=== PATIENT | male | born 1950 | race Caucasian/White ===

== ENCOUNTER → 2017-04-08 08:09 | Outpatient (CLI) | payer MEDICARE ==
[2015-12-15 10:44] VITALS: BMI 32.5
[~2017-04-08 08:09] MED LIST: BETAPACE 80 MG80 MG PO; COREG12.5 MG PO; GLUCOPHAGE1000 MG PO; GLUCOTROL 5 MG T5 MG PO; ISOSORBIDE MONO60 M1 PO; LISINOPRIL10 MG PO; NEURONTIN 400400 MG PO; PLAVIX75 MG PO; PRAVACHOL40 MG PO; PROAIR HFA8.5 GM INH; SPIRIVA18 MCG INH; TRICOR145 MG PO
== END | disposition home or self-care (01) ==
LOC: D.RT 08:09
DX: J45.909 Unspecified asthma, uncomplicated (principal)

== ENCOUNTER 2017-06-23 10:17 | Outpatient (CLI) | payer MEDICARE ==
[~2017-06-23] VITALS: Ht 172.7 cm; Wt 99.5 kg
--- NOTE | ~2017-06-23 | HEMODYNAMI ---
PATIENT:LETICIA LAMB MEDICAL RECORD: [id number] : 54 LOCATION:DBENEDICT ADMISSION DATE: 06/23/17 Generatedon:06/23/201712:46 Patient name: LETICIA LAMB Patient #: [id number] : 1950 Date of study: 06/23/2017 Page: Of Hemodynamic Procedure Report Patient Data Patient Demographics Procedure consent was obtained First Name: LETICIA Gender: Male Last Name: ZAINAB : 1950 Middle Initial: SRAVANTHI Age: 66 year(s) Patient #: [id number] Race: SSN: [id number] Additional ID: [id number] Contact details Address: [address] [place] [address] State: [place] City: [place] Zip code: [address] Past Medical History Allergies: No known allergies Admission Admission Data Admission Date: 06/23/2017 Admission Time: 10:17 Lab Results Lab Result Date: 06/23/2017 Lab Result Time: 0:00 Biochemistry Name Units Result Min Max BUN mg/dl 15 --(--*-)-- 7 18 Creatinine mg/dl 1.1 --(--*-)-- 0.6 1.3 CBC Name Units Result Min Max Hemoglobin g/dl 13.8 --(*---)-- 13.5 17.5 Procedure Procedure Types Cath Procedure Diagnostic Procedure LHC [facility] w/Coronaries w/Grafts Sedation Charges Moderate Sedation up to 15 minutes PCI Procedure AMI/SVG/DOMESTIC MAID PTCA or Stent SVG-BMS/IRON Initial Procedure Description Procedure Date Procedure Date: 06/23/2017 Procedure Start Time: 12:21 Procedure End Time: 12:45 Procedure Staff Name Function Phill Gresham MD Performing Physician Jie Rodrigez RT Monitor Allyson Ellis RN Nurse Theresa Barger RT Scrub Procedure Data Cath Procedure Fluoroscopy Diagnostic fluoroscopy Total fluoroscopy Time: 6.9 time: 6.9 min min Diagnostic fluoroscopy Total fluoroscopy dose: dose: 1209 mGy 1209 mGy Contrast Material Contrast Material Type Amount (ml) Isovue 300 94 Entry Location Entry Primary Successful Side Size Upsize Upsize Entry Closure Succes sful Closure Location (Fr) 1 (Fr) 2 (Fr) Remarks Device Remarks Femoral Right 5 Fr 6 Fr Exoseal artery Short Estimated blood loss: 10 ml Diagnostic catheters Device Type Used For End Catheter Placement MULTIPACK Pigtail 5 Fr Procedure catheter DIAGNOSTIC JL 5 5Fr Procedure catheter ([id number]) MULTIPACK 3DRC 5Fr catheter Procedure Complications No complications Procedure Medications Medication Administration Route Dosage Oxygen NC 2 l/min Lidocaine 2% added to field 20 Heparin Flush Bag added to field 2 bags (1000units/500ml NS) 0.9% NaCl I.V. 100 ml/hr Versed I.V. 1 mg Fentanyl I.V. 50 mcg Versed I.V. 1 mg Fentanyl I.V. 50 mcg Heparin Bolus 4000 units Hemodynamics Rest HGB: 13.8 (g/dl) Heart Rate: 0 (bpm) Snapshots Pre Cath Intra NCS Post Cath Vital Signs Time Heart Resp SPO2 etCO2 NIBP (mmHg) Rhythm Pain Sedation Rate (ipm) (%) (mmHg) Status Level (bpm) 12:00:18 65 18 98 0 120/76(96) NSR 0 (11) 10(A) , No pain 12:04:28 64 17 99 23.1 116/70(94) NSR 0 (11) 10(A) , No pain 12:08:36 63 21 100 36.6 114/72(98) NSR 0 (11) 10(A) , No pain 12:12:42 67 16 96 29.1 111/75(88) NSR 0 (11) 10(A) , No pain 12:16:46 67 15 95 26.9 114/74(91) NSR 0 (11) 10(A) , No pain 12:20:53 70 15 96 20.9 126/68(104) NSR 0 (11) 9(A) , No pain 12:25:01 69 13 97 11.2 112/78(95) NSR 0 (11) 9(A) , No pain 12:29:07 71 15 97 15.6 106/70(93) NSR 0 (11) 9(A) , No pain 12:33:09 72 15 98 11.9 115/77(99) NSR 0 (11) 9(A) , No pain 12:37:16 71 13 97 32.8 110/67(84) NSR 0 (11) 9(A) , No pain 12:41:20 70 16 98 42.5 116/73(99) NSR 0 (11) 10(A) , No pain 12:45:26 71 13 99 36.5 115/75(88) NSR 0 (11) 10(A) , No pain Medications Time Medication Route Dose Verified Delivered Reason Notes Ef fectiveness by by 12:03:52 Oxygen NC 2 Phill Buffie used for l/min Marga Ellis RN procedure 12:03:59 Lidocaine 2% added 20ml Phill Phill for local to vial Marga Gresham MD anesthetic field 12:04:04 Heparin Flush added 2 Phill Phill used for Bag to bags Marga Gresham MD procedure (1000units/500ml field NS) 12:04:12 0.9% NaCl I.V. 100 Phill Estrellaie Per ml/hr Marga Ellis RN physician 12:14:13 Versed I.V. 1 mg Phill Valadez for Marga Ellis RN sedation 12:14:18 Fentanyl I.V. 50 Phill Buffie for mcg Marga Ellis RN sedation 12:21:53 Versed I.V. 1 mg Phill Buffie for Marga Ellis RN sedation 12:21:56 Fentanyl I.V. 50 Phill Estrellaie for mcg Marga Ellis RN sedation 12:35:15 Heparin Bolus 4000 Phill Deloresie verified units Marga Ellis RN with dr gresham Procedure Log Time Note 11:40:28 Diagnostic Cath Status : Elective 11:40:50 Jie Rodrigez RT(R) sent for patient. Start room use. 11:40:51 Time tracking: Regular hours 11:40:56 Plan of Care:Hemodynamics will remain stable., Cardiac rhythm will remain stable., Comfort level will be maintained., Respiratory function will remain adequate., Patient/ family verbilizes understanding of procedure., Procedure tolerated without complication., Recovers from procedure without complications.. 11:53:55 Patient received from Pre/Post Procedure Room to [facility] 2 Alert and oriented. Tansferred to table in Supine position. 11:53:57 Warm blankets applied, and marlee hugger turned on for patient comfort. 11:53:57 Correct patient and procedure confirmed by team. 11:53:58 Signed procedure consent form obtained from patient. 11:53:59 ECG and BP/O2 sat monitors applied to patient. 11:59:18 Vital chart was started 11:59:19 Baseline sample Acquired. 11:59:26 Rhythm: sinus rhythm 11:59:58 Full Disclosure recording started 12:00:03 H&P Date Dictated: 06/23/2017 Within 30 days and on chart., H&P Addendum completed by physician on day of procedure. (MUST COMPLETE FOR ALL OUTPATIENTS). 12:00:05 Pre-procedure instructions explained to patient. 12:00:05 Pre-op teaching completed and patient verbalized understanding. 12:00:08 Family in waiting room. 12:00:11 Patient NPO since Midnight. 12:00:15 Is the patient allergic to Iodine/contrast media? No. 12:00:17 Was the patient premedicated? No 12:03:52 Oxygen 2 l/min NC was administered by Allyson Ellis RN; used for procedure; 12:03:59 Lidocaine 2% 20ml vial added to field was administered by Phill Gresham MD; for local anesthetic; 12:04:04 Heparin Flush Bag (1000units/500ml NS) 2 bags added to field was administered by Phill Gresham MD; used for procedure; 12:04:12 0.9% NaCl 100 ml/hr I.V. was administered by Allyson Ellis RN; Per physician; 12:04:15 Is patient on blood thinner?Yes 12:04:26 Snore? Yes 12:04:46 If diabetic: On Metformin? Yes 12:04:51 If on Metformin: Last Dose? 06/21/2017 12:04:53 If diabetic: On Metformin? Yes 12:05:01 Sleep apnea? No 12:05:05 Airway obstruction? Yes COPD 12:05:14 Dentures? No ? 12:05:23 Patient pain scale 0/10 .. 12:05:29 IV patent on arrival in left forearm with 0.9% NaCl at O. 12:05:56 Lab results completed and on chart. 12:06:02 Right groin area was prepped with chlora-prep and draped in sterile fashion 12:06:04 Alarms reviewed by R. N. 12:06:04 Sharps counted by scrub and verified by R.N. 12:06:06 Physician paged 12:12:05 Lab results completed and on chart. 12:13: Lab Result : Hemoglobin 13.8 g/dl 12:: Lab Result : Creatinine 1.1 mg/dl 12:: Lab Result : BUN 15 mg/dl 12:13: Physician arrived 12:: --------ALL STOP TIME OUT------ 12:: Final Timeout: patient, procedure, and site verified with staff and physician. All members of the team are in agreement. 12:13:31 Right groin site verified by team. 12:13:36 Physical assessment completed. ASA score P 2 - A patient with mild systemic disease as per Phill Gresham MD. 12:13:41 Sedation plan: IV Moderate Sedation Medication:Versed, Fentanyl 12:13:51 Baseline sample Acquired. 12:14:09 Use device set Femoral Dx 12:14:11 ACIST Syringe (71998) opened to sterile field. 12:14:11 Bag Decanter (2002S) opened to sterile field. 12:14:12 Medline Cath Pack ([id number]) opened to sterile field. 12:14:12 SHEATH 5FR Wharton (ANG868) opened to sterile field. 12:14:13 Versed 1 mg I.V. was administered by Allyson Ellis RN; for sedation; 12:14:13 DIAGNOSTIC WIRE .035 260cm J wire (508942) opened to sterile field. 12:14:14 ACIST Hand Control (67615) opened to sterile field. 12:14:15 ACIST Manifold (46808) opened to sterile field. 12:14:16 DIAGNOSTIC Multipack 5Fr catheter set (TM4170) opened to sterile field. 12:14:16 Tegaderm 4 x 4 (1626W) opened to sterile field. 12:14:18 Fentanyl 50 mcg I.V. was administered by Allyson Ellis RN; for sedation; 12:21:17 PERCUTANEOUS ENTRY 19GA needle opened to sterile field. 12:21:21 Procedure started. 12:21:34 Local anesthetic to right femoral artery with Lidocaine 2% by Phill Gresham MD.INITIAL ACCESS ONLY 12::53 Versed 1 mg I.V. was administered by Allyson Ellis RN; for sedation; 12::56 Fentanyl 50 mcg I.V. was administered by Allyson Ellis RN; for sedation; 12:: A 5 Fr sheath was inserted into the Right Femoral artery 12:23:51 A MULTIPACK Pigtail 5 Fr catheter was advanced over the wire and used for Procedure. 12::58 EF : 30 % 12:24:04 Catheter removed. 12::23 A DIAGNOSTIC JL 5 5Fr catheter ([id number]) was advanced over the wire and used for Procedure. 12:24:24 LCA angiography performed. 12::26 Catheter removed. 12:25:30 A MULTIPACK 3DRC 5Fr catheter was advanced over the wire and used for . 12:25:34 LEE to LAD angiography performed. 12:25:50 LEE not functioning 12:26:15 GUIDE 5FR AR 2.0 catheter ([id number]) opened to sterile field. 12:26:32 SVG angiography performed. 12:27:12 SVG to OM angiography performed. 12:27:31 SVG to LAD angiography performed. 12:27:44 RCA angiography performed. 12::57 Catheter removed. 12:28:55 INFLATOR Merit BasixCompak (PL9537) opened to sterile field. 12:28:56 CHOICE PT Extra Support 182cm wire ([id number]) opened to sterile field. 12:29:01 SHEATH 6FR Wharton (JAZ901) opened to sterile field. 12:29:18 Sheath upsized to a 6 Fr Short. 12:29:58 [place] IVUS Catheter (82082U) opened to sterile field. 12:30:01 GUIDE 6FR AR 2.0 catheter ([id number]) opened to sterile field. 12:30:12 6 Fr AR2 guide catheter was inserted over the wire 12:30:20 Choice PT ex wire advanced. 12:30:22 Wire advanced across lesion. 12:30:26 IVUS catheter advanced over wire. 12:34:40 IVUS catheter removed over wire. 12:35:15 Heparin Bolus 4000 units was administered by Allyson Ellis RN; ; verified with dr gresham 12:36:11 Wire removed. 12:36:13 Guide catheter removed. 12:37:02 GUIDE 6FR ART 4.0 catheter ([id number]) opened to sterile field. 12:37:27 Study PCI Site: Vein Graft mCirc has 74% stenosis. 12:37:38 Choice pt ex wire advanced. 12:37:40 Wire advanced across lesion. 12:41:30 Place stent Inflation Number: 1 A TRISTAN RX 4.0 x 18 stent ([id number]) was prepped and advanced across the Undefined2. The stent was deployed at 21 ROGER for 0:10 (min:sec). 12:41:52 Wire removed. 12:41:52 Guide catheter removed. 12:42:18 Sheath removed intact; hemostasis achieved with Exoseal to the Right Femoral artery. 12:42:26 Procedure ended.(Physican Out) 12:42:40 Fluoroscopy time 06.90 minutes. 12:42:47 Flurop Dose total: 1209 12:42:47 Fluoroscopy dose: 1209 mGy 12:42:59 Contrast amount:Isovue 300 94ml. 12:43:00 Sharps counted by scrub and verified by R.N. 12:43:01 Insertion/operative site no bleeding no hematoma. 12:43:06 Post right femoral artery:stable 12:43:12 Post-procedure physical assessment completed. ASA score P 2 - A patient with mild systemic disease as per Phill Gresham MD. 12:43:19 Post procedure rhythm: unchanged. 12:43:24 Estimated blood loss: 10 ml 12:43:26 Post procedure instruction explained to patient.Patient verbalizes understanding. 12:44:24 Procedure type changed to Cath procedure, Diagnostic procedure, LHC, LHC w/Coronaries w/Grafts, Sedation Charges, Moderate Sedation up to 15 minutes, PCI procedure, AMI/SVG/DOMESTIC MAID PTCA or Stent, SVG-BMS/IRON Initial 12:44:27 Procedure and supply charges have been captured, reviewed, submitted and are correct. 12:45:33 Procedure Complication : No complications 12:45:35 Vital chart was stopped 12:45:36 See physician's report for complete and final results. 12:45:37 Report given to Pre/Post Procedure Room. 12:45:41 Patient transfered to Pre/Post Procedure Room with Stretcher. 12:45:44 Procedure ended. 12:45:44 Full Disclosure recording stopped 12:46:06 End room use (Document Last) Intervention Summary Intervention Notes Time ActionType Lesion and Equipment Used Action# Pressure Duration Attributes 12:41:30 Place stent Undefined2 TRISTAN RX 4.0 x 1 21 00:10 18 stent ([id number]) Device Usage Item Name Manufacture Quantity Catalog Number Hospital Part Current M inimal Lot# / Charge Number Stock Stock Serial# Code ACIST Syringe Acist 1 25443 799595 886480 543151 2 0 (78016) Medical Systems Inc Bag Decanter Microtek 1 733580 50904 410012 5 () Medical Inc. Medline Cath Cardinal 1 [id number] 296759 20406 173759 5 Pack Health ([id number]) SHEATH 5FR Terumo 1 XTJ102 643802 994088 995789 4 0 Wharton (KZI554) DIAGNOSTIC St Yazan 1 985071 257688 747933 983213 3 0 WIRE .035 260cm J wire (408002) ACIST Hand Acist 1 08456 665195 528386 885970 5 Control Medical (45404) Systems Inc ACIST Manifold Acist 1 15890 099213 268584 314343 5 (25956) Medical Systems Inc DIAGNOSTIC Cardinal 1 HG8766 945936 81921 195380 3 0 Multipack 5Fr Health catheter set (PN8277) Tegaderm 4 x 4 3M 1 1626W 680364 330215 404614 5 (1626W) PERCUTANEOUS Cook Medical 1 J42542 669660 440949 5 ENTRY 19GA needle MULTIPACK Cardinal 1 051733 5 Pigtail 5 Fr Health catheter DIAGNOSTIC JL Cardinal 1 [id number] 792015 137620 173890 5 5 5Fr catheter Health ([id number]) MULTIPACK 3DRC Cardinal 1 771558 5 5Fr catheter Health GUIDE 5FR AR Medtronic 1 [id number] 636982 777332 745361 1 2.0 catheter (IC6DS71) INFLATOR Merit Merit 1 LF6631 296064 828874 875756 1 5 PharmaIN (MU8719) CHOICE PT [place] 1 [id number] 138800 147937 179586 5 Extra Support Scientific 182cm wire ([id number]) SHEATH 6FR Terumo 1 XTO209 494505 183046 634780 4 0 Wharton (NGN501) [place] 1 71628P 786981 477667 883951 8 [place] IVUS Catheter (27133X) GUIDE 6FR AR Medtronic 1 [id number] 662759 60577 884451 1 2.0 catheter (MN9NC46) GUIDE 6FR ART [place] 1 [id number] 767694 940534 058882 0 4.0 catheter Scientific ([id number]) TRISTAN RX 4.0 x Medtronic 1 [id number] 311922 7296621 078696 5 [id number] 18 stent ([id number]) Signature Audit [place] Stage Time Signature Unsigned Intra-Procedure 06/23/2017 Jie Rodrigez 12:46:39 PM RT(R) Signatures Monitor : Jie Rodrigez Signature : RT Date : Time : [address] [place] [address]
--- NOTE | ~2017-06-23 | OP ---
PATIENT NAME: LETICIA LAMB MEDICAL RECORD: [id number] :54 LOCATION:D.CAT ADMISSION DATE: SURGEON: MICHAEL FONSECA MD DATE OF OPERATION: 06/23/2017 PROCEDURES: 1. PTCA stent vein graft to left circumflex. 2. Left heart catheterization. 3. Selective coronary angiography. 4. Left ventriculogram. 5. Vein graft angiography. 6. Intravascular ultrasound. INDICATION: Angina and coronary artery disease. PROCEDURE IN DETAIL: After informed consent was obtained and after a detailed description of the risks, benefits as well as alternative therapies, the patient elected to proceed with angiogram and angioplasty. The right femoral area was prepped and draped in normal sterile fashion. Right femoral artery was cannulated via modified Seldinger technique with placement of 6-[place] sheath. All catheters exchanged through this sheath. FINDINGS: The left ventriculogram was performed in standard 30-degree BURR view reveals global hypokinesis throughout all segments. Overall ejection fraction 35%. SELECTIVE CORONARY ANGIOGRAPHY: 1. Left main is with no significant angiographic disease. 2. Left anterior descending is totally occluded in the proximal vessel. 3. Left circumflex is totally occluded proximally. 4. Right coronary artery is totally occluded proximally. 5. Vein graft to the LAD is widely patent. Distal LAD is widely patent. 6. Vein graft to the circumflex is patent; however, intravascular ultrasound reveals there is 74% stenosis in the proximal shaft. PTCA STENT OF THE VEIN GRAFT TO THE CIRCUMFLEX: The stent used was a 4.0 x 18 mm Og. Result was 0% residual stenosis. OVERALL IMPRESSION: Successful percutaneous transluminal coronary angioplasty stent of the vein graft circumflex going from 74% initial stenosis confirmed by intravascular ultrasound to 0% residual stenosis. TRANSINT:[id number] Voice Confirmation ID: [id number] DOCUMENT ID: [id number] MICHAEL FONSECA MD at 1057 CC: [id number] DICTATION DATE: 06/23/17 1246 ELECTROPHONIC ENGINEER: 06/23/17 1259 DEP CLI 06/23/17 [place] [id number]
[2017-06-23] MEDS ORDERED: SINGULAIR10 MG PO (10:30)
[2017-06-23] MEDS ORDERED: NITROSTAT0.4 MG SL (10:31)
[2017-06-23] MEDS ORDERED: BREO ELLIPTA 21 EACH (10:31)
[2017-06-23] MEDS ORDERED: RANEXA500 MG PO (10:31)
[2017-06-23 10:45] VITALS: BP 116/68; Ht 172.7 cm; Wt 99.5 kg
[2017-06-23 11:08] LABS: BASOPHILS 0.3 % (0-2); EOSINOPHILS 1.7 % (0-7); HEMATOCRIT 40.5 % (42.0-54.0); HEMOGLOBIN 13.8 g/dL (13.5-17.5); IMMATURE GRANULOCYTES 0.3 % (0-5); LYMPHOCYTES 25.4 % (15-50); MCH 32.1 pg (26.0-34.0); MCHC 34.1 g/dL (31.0-37.0); MCV 94.2 fL (80.0-100.0); MEAN PLATELET VOLUME 11.7 fL (7.4-10.4); MONOCYTES 8.9 % (2-11); NEUTROPHILS 63.4 % (40-80); PLATELET COUNT 195 10x3/uL (130-400); RDW 14.3 % (11.5-14.5); WBC 7.4 10x3/uL (4.8-10.8)
[2017-06-23 11:23] LABS: ANION GAP 14.5 mmol/L (8-16); CALCIUM 9.3 mg/dL (8.5-10.1); CARBON DIOXIDE 25.3 mmol/L (21.0-32.0); CREATININE - SERUM 1.1 mg/dL (0.6-1.3); POTASSIUM - SERUM 4.8 mmol/L (3.5-5.1)
[2017-06-23] MEDS ORDERED: BAYER CHEWABLE81 MG PO (12:54)
== END 2017-06-23 17:00 | disposition home or self-care (01) ==
LOC: D.CATH 10:17
PROVIDERS: Internal Medicine Interventional Cardiology
DX: I25.119 Atherosclerotic heart disease of native coronary artery with unspecified angina pectoris (principal); I25.719 Atherosclerosis of autologous vein coronary artery bypass graft(s) with unspecified angina pectoris; Z01.812 Encounter for preprocedural laboratory examination
CPT/HCPCS: 92978; 93459; C9604

== ENCOUNTER 2018-01-06 01:33 | Outpatient (CLI) | payer MEDICARE ==
[~2018-01-06] VITALS: Ht 172.7 cm; Wt 99.8 kg
--- NOTE | ~2018-01-06 | DS ---
PATIENT:LETICIA LAMB :54 MEDICAL RECORD: [id number] DISCHARGE SUMMARY ADMISSION DATE: 01/06/18 DISCHARGE DATE: 01/07/18 DATE OF ADMISSION: 01/06/2018 DATE OF DISCHARGE: 01/07/2018 ADMISSION DIAGNOSES: Chest pain with known cardiovascular disease, chronic obstructive pulmonary disease, diabetes. DISCHARGE DIAGNOSES: Chest pain, cardiovascular disease, chronic obstructive pulmonary disease, diabetes. CONSULTS: Dr. Gresham, cardiology. PROCEDURES: Cardiac catheterization with a stent to the vein graft and circumflex with complete resolution of symptoms. HOSPITAL COURSE: The patient was admitted to the Emergency Room with chest pain, with known cardiovascular disease. Cardiology consulted, underwent successful cardiac catheterization with stent placement as above. The patient's symptoms have completely resolved. He is discharged to home in significantly improved condition. PHYSICAL EXAMINATION: VITAL SIGNS ON DISCHARGE: Temperature 97.7, blood pressure is 114/72, heart rate 66, respirations 17, O2 sats 98% on room air. HEART: Regular rate and rhythm. LUNGS: Clear. ABDOMEN: Soft, nontender. Bowel sounds in all 4 quadrants. EXTREMITIES: Present times 4. NEUROLOGIC: Intact. SKIN: Warm and dry. No rash. DISCHARGE MEDICATIONS: Per med rec. FOLLOWUP: The patient will follow up with cardiology as scheduled. Follow up with me in the clinic in 10 days. See chart for further details. TRANSINT:[id number] Voice Confirmation ID: [id number] DOCUMENT ID: [id number] HELEN BAUER DO at 1304 CC: [id number] DICTATION DATE: 01/07/18 111 SPORTS ANALYST: 01/07/182047 DIS IN 01/07/18 [facility] [address] [id number]
--- NOTE | ~2018-01-06 | MORECARE ---
CASE MANAGEMENT DISCHARGE SUMMARY PATIENT: LETICIA LAMB UNIT: [id number] ADM DATE: 01/06/18 AGE: 67 : 54 SEX: M ROOM/BED: D.8253 AUTHOR: ALEJANDRO SANCHEZ PHYSICIAN: REFERRING PHYSICIAN: HELEN BAUER DO DATE OF SERVICE: 01/09/18 Discharge Plan Patient Name: LETICIA LAMB [facility] [facility] 1950 Planned Disposition: Home Anticipated Discharge Date: 01/07/18 Discharge Date: 01/07/2018 Expected LOS: 1 Initial Reviewer: [email or web address] Initial Review Date: 01/09/2018 Generated: 01/09/18 10:08 am Patient Name: LETICIA LAMB Page [id number] at 0908 All edits/amendments must be made on the electronic document DICTATION DATE: 01/09/18907 SENIOR HR BUSINESS PARTNER: BOB 01/09/18907 RPT#: [id number] DC DATE:01/07/18 STATUS: DIS IN [facility] [address] [facility] [place] [address] END OF REPORT
--- NOTE | ~2018-01-06 | OP ---
PATIENT NAME: LETICIA LAMB MEDICAL RECORD: [id number] :54 LOCATION:D.M2 D.2123 ADMISSION DATE:01/06/18 SURGEON: MICHAEL FONSECA MD DATE OF OPERATION: 01/06/2018 PROCEDURES: 1. PTCA stent vein graft to left circumflex. 2. Left heart catheterization. 3. Selective coronary angiography. 4. Left ventriculogram. 5. Vein graft angiography. INDICATION: Unstable angina and coronary artery disease. PROCEDURE IN DETAIL: After informed consent was obtained and after a detailed description of risks, benefits as well as alternative therapies, the patient proceed with angiogram and angioplasty. The right femoral area was prepped and draped in normal sterile fashion. The right femoral artery was cannulated via modified Seldinger technique with placement of 6-[place] sheath. All catheters exchanged through this sheath. FINDINGS: Left ventriculogram was performed in standard 30-degree BURR view, reveals global hypokinesis throughout all segments. Overall ejection fraction approximately 35%. SELECTIVE CORONARY ANGIOGRAPHY: 1. Left main is with no significant angiographic disease. 2. Left anterior descending is closed. 3. Left circumflex is closed. 4. Right coronary artery is closed. 5. Vein graft to the LAD is widely patent. Distal LAD is widely patent. 6. Vein graft to circumflex is patent, previously placed stents are patent; however, there is a new 75% stenosis in the mid shaft. 7. Right coronary is not grafted. PTCA STENT OF THE VEIN GRAFT AND CIRCUMFLEX: The stent used 4.5 x 18 mm Og. Result was 0% residual stenosis. OVERALL IMPRESSION: Successful PTCA stent of the vein graft to the left circumflex going from 75% initial stenosis to 0% residual. TRANSINT:[id number] Voice Confirmation ID: [id number] DOCUMENT ID: [id number] MICHAEL FONSECA MD at 1914 CC: [id number] DICTATION DATE: 01/06/18 1632 SENIOR LINUX UNIX ENGINEER: 01/06/18 1641 ADM IN [facility] [address] [place] [address]
--- NOTE | ~2018-01-06 | HEMODYNAMI ---
PATIENT:LETICIA LAMB MEDICAL RECORD: [id number] : 54 LOCATION:[place] [address] ADMISSION DATE: 01/06/18 Generatedon:01/06/201816:30 Patient name: LETICIA LAMB Patient #: [id number] : 1950 Date of study: 01/06/2018 Page: Of Hemodynamic Procedure Report Patient Data Patient Demographics Procedure consent was obtained First Name: LETICIA Gender: Male Last Name: ZAINAB : 1950 [facility] Initial: SRAVANTHI Age: 67 year(s) Patient #: [id number] Race: SSN: [id number] Additional ID: [id number] Contact details Address: [place] [address] State: [place] City: [place] Zip code: [address] Past Medical History Allergies: No known allergies Admission Admission Data Admission Date: 01/06/2018 Admission Time: 3:25 Room #: [facility] Procedure Procedure Types Cath Procedure Diagnostic Procedure LHC LHC w/Coronaries w/Grafts Sedation Charges Moderate Sedation up to 15 minutes PCI Procedure AMI/SVG/OPTICAL GOODS DRILL OPERATOR PTCA or Stent SVG-BMS/IRON Initial Procedure Description Procedure Date Procedure Date: 01/06/2018 Procedure Start Time: 16:15 Procedure End Time: 16:27 Procedure Staff Name Function Phill Gresham MD Performing Physician Theresa Barger RT Monitor Jie Rodrigez RT Scrub Joey Lewis RN Nurse Procedure Data Cath Procedure Fluoroscopy Diagnostic fluoroscopy Total fluoroscopy Time: 3.4 time: 3.4 min min Diagnostic fluoroscopy Total fluoroscopy dose: 820 dose: 820 mGy mGy Contrast Material Contrast Material Type Amount (ml) Isovue 300 83 Entry Location Entry Primary Successful Side Size Upsize Upsize Entry Closure Succes sful Closure Location (Fr) 1 (Fr) 2 (Fr) Remarks Device Remarks Femoral Right 5 Fr 6 Fr Exoseal artery Short Estimated blood loss: 5 ml Diagnostic catheters Device Type Used For End Catheter Placement Medtronic Dexterity 5Fr Multi-vessel Pigtail catheter(NO COST Angiography SUPPLY) Medtronic Dexterity 5Fr Left Coronary JL 4.0 catheter (NO COST Angiography SUPPLY) Medtronic Dexterity 5Fr Right Coronary 3DRC catheter (NO COST Angiography SUPPLY) Procedure Complications No complications Procedure Medications Medication Administration Route Dosage Oxygen etCO2 Nasal cannula 2 l/min Heparin Flush Bag added to field 2 bags (1000units/500ml NS) 0.9% NaCl I.V. 100 ml/hr Fentanyl I.V. 50 mcg Versed I.V. 1 mg Fentanyl I.V. 50 mcg Versed I.V. 1 mg Heparin Bolus I.V. 4000 units Hemodynamics Rest Heart Rate: 73 (bpm) Pressure Samples Time Site Value (mmHg) Purpose Heart Use Rate(bpm) 16:16 LV 91/6,7 Snapshot 76 Snapshots Pre Cath Intra NCS Post Cath Vital Signs Time Heart Resp SPO2 etCO2 NIBP (mmHg) Rhythm Pain Sedation Rate (ipm) (%) (mmHg) Status Level (bpm) 16:03:41 72 17 98 17.9 123/76(100) NSR 0 (11) 10(A) , No pain 16:07:44 72 16 99 25.3 128/82(105) NSR 0 (11) 10(A) , No pain 16:11:50 76 17 95 39.5 128/79(107) NSR 0 (11) 10(A) , No pain 16:15:58 75 17 95 33.6 123/76(108) NSR 0 (11) 9(A) , No pain 16:20:02 81 17 95 41.8 128/80(112) NSR 0 (11) 9(A) , No pain 16:24:09 83 16 95 46.2 125/79(107) NSR 0 (11) 9(A) , No pain 16:28:13 83 16 97 40.3 136/83(108) NSR 0 (11) 9(A) , No pain Medications Time Medication Route Dose Verified Delivered Reason Notes Effectiveness by by 16:04:07 Oxygen etCO2 2 Phill Cook Per physician Nasal l/min Marga Lewis RN cannula 16:04:14 Heparin Flush added 2 Phill Cook used for Bag to bags Marga Lewis tuberculosis specialist (1000units/500ml field NS) 16:04:22 0.9% NaCl I.V. 100 Phill Andinoy Per physician ml/hr Marga Lewis RN 16:13:57 Fentanyl I.V. 50 Phill Cook for sedation mcg Marga Lewis RN 16:14:03 Versed I.V. 1 mg Phill Cook for sedation Marga Lewis RN 16:22:20 Fentanyl I.V. 50 Phill Cook for sedation mcg Marga Lewis RN 16:22:25 Versed I.V. 1 mg Phill Cook for sedation Marga Lewis RN 16:22:34 Heparin Bolus I.V. 4000 Phill Cook for units Marga Lewis RN anticoagulation Procedure Log Time Note 15:50:56 Joey Lewis RN sent for patient. Start room use. 16:02:04 Time tracking: Regular hours (M-F 7:00 - 5:00) 16:02:09 Plan of Care:Hemodynamics will remain stable., Cardiac rhythm will remain stable., Comfort level will be maintained., Respiratory function will remain adequate., Patient/ family verbilizes understanding of procedure., Procedure tolerated without complication., Recovers from procedure without complications.. 16:02:20 Patient received from Med II to CCL 2 Alert and oriented. Tansferred to table in Supine position. 16:02:21 Warm blankets applied, and marlee hugger turned on for patient comfort. 16:02:22 Correct patient and procedure confirmed by team. 16:02:23 Signed procedure consent form obtained from patient. 16:02:29 ECG and BP/O2 sat monitors applied to patient. 16:02:29 Vital chart was started 16:04:07 Oxygen 2 l/min etCO2 Nasal cannula was administered by Joey Lewis RN; Per physician; 16:04:14 Heparin Flush Bag (1000units/500ml NS) 2 bags added to field was administered by Joey Lewis RN; used for procedure; 16:04:22 0.9% NaCl 100 ml/hr I.V. was administered by Joey Lewis RN; Per physician; 16:04:24 Baseline sample Acquired. 16:04:29 Full Disclosure recording started 16:04:34 H&P Date Dictated: 01/06/2018 New H&P dictated by physician.. 16:04:35 Pre-procedure instructions explained to patient. 16:04:36 Pre-op teaching completed and patient verbalized understanding. 16:04:36 Family in waiting room. 16:04:38 Patient NPO since Midnight. 16:05:27 Is the patient allergic to Iodine/contrast media? No. 16:05:29 Was the patient premedicated? No 16:05:29 Is patient on blood thinner?Yes 16:05:32 ACC The patient was administered the following blood thiners within the last 24 hours: ACCPlavix 16:05:33 Patient diabetic? Yes. 16:05:34 If diabetic: On Metformin? No 16:05:36 Previous problem with sedation/anesthesia? No ? 16:05:38 Snore? Yes 16:05:39 Sleep apnea? Yes 16:05:40 Deviated septum? No 16:05:41 Opens mouth fully? Yes 16:05:42 Sticks out tongue? Yes 16:05:43 Airway obstruction? No ? 16:05:46 Dentures? No ? 16:05:49 Pre procedure: right dorsailis pedis pulse 2+ Normal; easily identifiable; not easily obliterated 16:05:52 Pre procedure: left dorsailis pedis pulse 2+ Normal; easily identifiable; not easily obliterated 16:05:54 Patient pain scale 0/10 ?. 16:06:05 IV patent on arrival in right wrist with 0.9% NaCl at KVO. 16:06:10 Lab results completed and on chart. 16:06:17 Right groin area was prepped with chlora-prep and draped in sterile fashion 16:06:18 Alarms reviewed by R. N. 16:06:18 Sharps counted by scrub and verified by R.N. 16:10:21 Use device set Femoral Dx 16:10:26 ACIST Syringe (73172) opened to sterile field. 16:10:27 Bag Decanter (2002S) opened to sterile field. 16:10:27 Medline Cath Pack ([id number]) opened to sterile field. 16:10:28 DIAGNOSTIC WIRE .035 260cm J wire (409601) opened to sterile field. 16:10:30 ACIST Hand Control (12831) opened to sterile field. 16:10:31 ACIST Manifold (82544) opened to sterile field. 16:10:32 Tegaderm 4 x 4 (1626W) opened to sterile field. 16:10:33 SHEATH Prelude 5Fr 0.035 ([id number]-6I-83-035) opened to sterile field. 16:11:35 Physician arrived 16:11:36 --------ALL STOP TIME OUT------ 16:11:36 Final Timeout: patient, procedure, and site verified with staff and physician. All members of the team are in agreement. 16:11:38 Right groin site verified by team. 16:11:41 Physical assessment completed. ASA score P 2 - A patient with mild systemic disease as per Phill Gresham MD. 16:11:44 Sedation plan: IV Moderate Sedation Medication:Versed, Fentanyl 16:13:57 Fentanyl 50 mcg I.V. was administered by Joey Lewis RN; for sedation; 16:14:03 Versed 1 mg I.V. was administered by Joey Lewis RN; for sedation; 16:15:13 Procedure started. 16:15:23 Local anesthetic to right femoral artery with Lidocaine 2% by Phill Gresham MD.INITIAL ACCESS ONLY 16:15:35 A 5 Fr sheath was inserted into the Right Femoral artery 16:15:56 A Medtronic Dexterity 5Fr Pigtail catheter(NO COST SUPPLY) was advanced over the wire and used for Multi-vessel Angiography. 16:16:03 LV hemodynamics recorded. 16:16:03 LV gram done using BURR 16:16:07 Injector settings: Ml/sec: 5, Volume: 15, 16:16:13 EF : 35 % 16:16:16 Catheter removed. 16:16:28 A Medtronic Dexterity 5Fr JL 4.0 catheter (NO COST SUPPLY) was advanced over the wire and used for Left Coronary Angiography. 16:17:16 LCA angiography performed. 16:17:18 Injector settings: Ml/sec: 3, Volume: 6, 16:17:20 Catheter removed. 16:17:28 A Medtronic Dexterity 5Fr 3DRC catheter (NO COST SUPPLY) was advanced over the wire and used for Right Coronary Angiography. 16:18:01 RCA angiography performed. 16:18:06 Injector settings: Ml/sec: 3, Volume: 6, 16:18:49 SVG to Diag angiography performed. 16:18:52 SVG to Circ angiography performed. 16:18:53 Catheter removed. 16:19:37 CHOICE PT Extra Support 182cm wire ([id number]) opened to sterile field. 16:19:37 INFLATOR Merit BasixCompak (ON6404) opened to sterile field. 16:20:22 GUIDE 6FR AR 2.0 catheter (EL3JN86) opened to sterile field. 16:21:10 SHEATH 6FR [place] (GUP877) opened to sterile field. 16:21:36 Sheath upsized to a 6 Fr Short. 16:21:42 6 Fr ar 2 guide catheter was inserted over the wire 16:22:20 Fentanyl 50 mcg I.V. was administered by Joey Lewis RN; for sedation; 16:22:25 Versed 1 mg I.V. was administered by Joey Lewis RN; for sedation; 16::34 Heparin Bolus 4000 units I.V. was administered by Joey Lewis RN; for anticoagulation; 16::58 choice pt wire advanced. 16:25:07 Place stent Inflation Number: 1 A TRISTAN RX 4.5 x 18 stent ([id number]) was prepped and advanced across the Aorta Left -> Mid CX. The stent was deployed at 10 ROGER for 0:10 (min:sec). 16:25:14 Stent catheter was removed intact over wire. 16:25:15 Wire removed. 16:25:16 Guide catheter removed. 16:25:37 EXOSEAL 6Fr (EX600) opened to sterile field. 16:25:47 Sheath removed intact; hemostasis achieved with Exoseal to the Right Femoral artery. 16:26:10 Procedure ended.(Physican Out) 16:26:41 Fluoroscopy time 03.40 minutes. 16:26:46 Fluoroscopy dose: 820 mGy 16:26:46 Flurop Dose total: 820 16:26:50 Contrast amount:Isovue 300 83ml. 16:26:51 Sharps counted by scrub and verified by R.N. 16:26:52 Insertion/operative site no bleeding no hematoma. 16:26:55 Post-op/insertion site Right Femoral artery dressed using a 4 x 4 and Tegaderm. 16:26:58 Post right femoral artery:stable 16:26:59 Post Procedure Pulses reassessed and unchanged 16:27:01 Post procedure rhythm: unchanged. 16:27:06 Estimated blood loss: 5 ml 16:27:08 Post procedure instruction explained to patient.Patient verbalizes understanding. 16:27:08 Patient needs reinforcement of post procedure teaching. 16:27:29 Procedure type changed to Cath procedure, Diagnostic procedure, LHC, LHC w/Coronaries w/Grafts, Sedation Charges, Moderate Sedation up to 15 minutes, PCI procedure, AMI/SVG/OPTICAL GOODS DRILL OPERATOR PTCA or Stent, SVG-BMS/IRON Initial 16:27:29 Procedure and supply charges have been captured, reviewed, submitted and are correct. 16:27:34 Procedure Complication : No complications 16:27:39 Vital chart was stopped 16:27:40 See physician's report for complete and final results. 16:27:42 Report given to [facility]. 16:27:45 Patient transfered to [facility] with Stretcher. 16:27:46 Procedure ended. 16:27:46 Full Disclosure recording stopped 16:27:52 ACC-PCI Only Patient was given prescriptions, or instructed by Phill Gresham MD to start/continue the following medications upon discharge: Plavix 16:27:54 End room use (Document Last) Intervention Summary Intervention Notes Time ActionType Lesion and Equipment Used Action# Pressure Duration Attributes 16:25:07 Place stent Aorta Left TRISTAN RX 4.5 x 1 10 00:10 -> Mid CX 18 stent ([id number]) Device Usage Item Name Manufacture Quantity Catalog Number Hospital Part Current Minimal Lot# / Charge Number Stock Stock Serial# Code ACIST Syringe Acist 1 07870 993673 728984 645684 20 (10639) Medical Systems Inc Bag Decanter Microtek 1 165607 07525 720255 5 () Medical Inc. Medline Cath Medline 1 [id number] 118219 01407 963303 5 Pack ([id number]) DIAGNOSTIC WIRE St Yaazn 1 264624 798775 275220 750560 30 .035 260cm J wire (500384) ACIST Hand Acist 1 12447 765329 778779 057162 5 Control (97914) Medical Systems Inc ACIST Manifold Acist 1 91324 164655 592447 458832 5 (43858) Medical Systems BioSeek Tegaderm 4 x 4 3M 1 1626W 915892 820991 057416 5 (1626W) SHEATH Prelude Merit 1 BTD-5S-16-035 648101 641624 357271 5 5Fr 0.035 Medical (PWS-5I-36-035) Medtronic Medtronic 1 [id number] 367925 071425 5 Dexterity 5Fr Pigtail catheter(NO COST SUPPLY) Medtronic Medtronic 1 [id number] 126055 165722 5 Dexterity 5Fr JL 4.0 catheter (NO COST SUPPLY) Medtronic Medtronic 1 [id number] 780920 095536 5 Dexterity 5Fr 3DRC catheter (NO COST SUPPLY) CHOICE PT Extra Zap 1 [id number] 024570 830264 999315 5 Support 182cm Scientific wire ([id number]) INFLATOR Merit Merit 1 BC9710 039710 469139 755047 15 Blue [employer] StoriesalHonglian [employer] Medical (TS7146) GUIDE 6FR AR Medtronic 1 [id number] 330254 13680 637972 1 2.0 catheter ([id number]) SHEATH 6FR Terumo 1 MTT715 611470 561634 528138 40 [place] (GCX217) TRISTAN RX 4.5 x Medtronic 1 [id number] 307023 6731386 161762 5 [id number] 18 stent ([id number]) EXOSEAL 6Fr Cardinal 1 EX600 229560 749421 998633 10 (EX600) Health Signature Audit [place] Stage Time Signature Unsigned Intra-Procedure 01/06/2018 Theresa Barger 4:30:45 PM RT(R) Signatures Monitor : Theresa Barger RT Signature : Date : Time : [facility] [address] [place] [address]
[~2018-01-06 01:33] MED LIST changes: +BAYER CHEWABLE81 MG PO; +BREO ELLIPTA 21 EACH; +NITROSTAT0.4 MG SL; +RANEXA500 MG PO; +SINGULAIR10 MG PO
[2018-01-06 01:56] VITALS: BP 138/80
[2018-01-06 01:56] LABS: BASOPHILS 0.6 % (0-2); EOSINOPHILS 3.5 % (0-7); HEMATOCRIT 41.9 % (42.0-54.0); HEMOGLOBIN 14.4 g/dL (13.5-17.5); IMMATURE GRANULOCYTES 0.3 % (0-5); LYMPHOCYTES 30.2 % (15-50); MCH 32.4 pg (26.0-34.0); MCHC 34.4 g/dL (31.0-37.0); MCV 94.4 fL (80.0-100.0); MEAN PLATELET VOLUME 11.1 fL (7.4-10.4); MONOCYTES 8.4 % (2-11); PLATELET COUNT 179 10x3/uL (130-400); RBC 4.44 10x6/uL (4.20-6.10); RDW 13.4 % (11.5-14.5); WBC 7.2 10x3/uL (4.8-10.8)
[2018-01-06 02:18] LABS: ALBUMIN 3.9 g/dL (3.4-5.0); ALKALINE PHOSPHATASE 111 U/L (46-116); ALT (SGPT) 35 U/L (10-68); BILIRUBIN - TOTAL 0.22 mg/dL (0.2-1.3); CALC OSMOLALITY 290 mosm/kg (275-300); CALCIUM 10.6 mg/dL (8.5-10.1); CARBON DIOXIDE 27.3 mmol/L (21.0-32.0); CHLORIDE - SERUM 103 mmol/L (98-107); CREATININE - SERUM 1.3 mg/dL (0.6-1.3); GLUCOSE 216 mg/dL (74-106); POTASSIUM - SERUM 4.2 mmol/L (3.5-5.1); PROTEIN - SERUM 7.5 g/dL (6.4-8.2); SODIUM 141 mmol/L (136-145); UREA NITROGEN 21 mg/dL (7-18); eGFR NON AFRICAN AMERICAN 59 mL/min (90-120)
[2018-01-06 02:27] LABS: CKMB 0.9 U/L (0.0-3.6); CREATINE KINASE 87 UL (21-232); MAGNESIUM - SERUM 1.6 mg/dL (1.8-2.4)
[2018-01-06 02:29] LABS: TROPONIN-I 0.016 ng/mL (0.000-0.060)
[2018-01-06 02:47] LABS: PROTIME 12.9 SECONDS (11.6-15.0)
[2018-01-06 02:58] LABS: APTT 31.6 SECONDS (22.8-39.4)
[2018-01-06 06:15] VITALS: BP 121/75
[2018-01-06 08:36] LABS: TROPONIN-I 0.027 ng/mL (0.000-0.060)
[2018-01-06 11:59] VITALS: BP 126/71
[2018-01-06 13:07] VITALS: Ht 172.7 cm; Wt 99.8 kg
[2018-01-06 14:50] LABS: CKMB 1.1 U/L (0.0-3.6); CREATINE KINASE 69 UL (21-232); TROPONIN-I 0.021 ng/mL (0.000-0.060)
[2018-01-06 15:29] VITALS: BP 110/65
[2018-01-06 17:11] VITALS: BP 148/76
[2018-01-06 19:48] LABS: CKMB 1.2 U/L (0.0-3.6); CREATINE KINASE 76 UL (21-232); TROPONIN-I 0.025 ng/mL (0.000-0.060)
[2018-01-06 20:00] VITALS: BP 126/78
[2018-01-07] VITALS: BP 117/60
[2018-01-07 04:00] VITALS: BP 122/76; BP 124/69
[2018-01-07 06:47] LABS: BASOPHILS 0.2 % (0-2); EOSINOPHILS 2.2 % (0-7); HEMATOCRIT 42.4 % (42.0-54.0); HEMOGLOBIN 14.5 g/dL (13.5-17.5); IMMATURE GRANULOCYTES 0.2 % (0-5); LYMPHOCYTES 20.2 % (15-50); MCH 32.4 pg (26.0-34.0); MCHC 34.2 g/dL (31.0-37.0); MCV 94.6 fL (80.0-100.0); MEAN PLATELET VOLUME 11.5 fL (7.4-10.4); NEUTROPHILS 68.2 % (40-80); PLATELET COUNT 168 10x3/uL (130-400); RBC 4.48 10x6/uL (4.20-6.10); RDW 13.6 % (11.5-14.5); WBC 8.8 10x3/uL (4.8-10.8)
[2018-01-07 07:23] LABS: ALBUMIN 3.6 g/dL (3.4-5.0); ANION GAP 12.8 mmol/L (8-16); BILIRUBIN - TOTAL 0.47 mg/dL (0.2-1.3); CALCIUM 9.3 mg/dL (8.5-10.1); CARBON DIOXIDE 27.2 mmol/L (21.0-32.0); CREATININE - SERUM 1.1 mg/dL (0.6-1.3)
[2018-01-07 08:00] VITALS: BP 114/72
[2018-01-07 13:05] VITALS: BP 161/92
== END 2018-01-07 14:22 | disposition home or self-care (01) ==
LOC: OBSVTIME → D.OPS 01:33 → D.ER 01:33 → D.M2 03:25 → D.ER 03:25 → D.M2 03:25 → OBSVTIME 03:25 → D.ER 03:41 → EDSTATUS 09:00 → D.M2 01-07 14:22 → D.OPS 01-07 14:22 → D.M2 01-07 14:22
PROVIDERS: Family Medicine
DX: I25.110 Atherosclerotic heart disease of native coronary artery with unstable angina pectoris (principal); Z95.1 Presence of aortocoronary bypass graft; Z95.5 Presence of coronary angioplasty implant and graft; Z72.0 Tobacco use; J44.9 Chronic obstructive pulmonary disease, unspecified; E11.9 Type 2 diabetes mellitus without complications; I10 Essential (primary) hypertension
CPT/HCPCS: 93459; C9604

== ENCOUNTER 2018-03-08 15:54 | Observation (INO) | payer MEDICARE ==
[~2018-03-08] VITALS: Ht 172.7 cm; Wt 103.2 kg
--- NOTE | ~2018-03-08 | MORECARE ---
CASE MANAGEMENT DISCHARGE SUMMARY PATIENT: LETICIA LAMB UNIT: [id number] ADM DATE: 03/08/18 AGE: 67 : 54 SEX: M ROOM/BED: D.2116 AUTHOR: ALEJANDRO SANCHEZ PHYSICIAN: REFERRING PHYSICIAN: CA DUNHAM M.D. DATE OF SERVICE: 03/09/18 Discharge Plan Patient Name: LETICIA LAMB Facility: [facility]:[place] : 1950 Planned Disposition: Home Anticipated Discharge Date: 03/09/18 Discharge Date: Expected LOS: 1 Initial Reviewer: [email or web address] Initial Review Date: 03/09/2018 Generated: 03/09/18 11:11 am Patient Name: LETICIA LAMB Page 22894 at 1011 All edits/amendments must be made on the electronic document DICTATION DATE: 03/09/18 1011 NIGHT ASSISTANT: BOB 03/09/18 1011 RPT#: [id number] DC DATE: STATUS: ADM IN [facility] [address] [place] [address] END OF REPORT
[2018-03-08 16:20] LABS: BASOPHILS 0.2 % (0-2); HEMATOCRIT 40.3 % (42.0-54.0); IMMATURE GRANULOCYTES 0.1 % (0-5); LYMPHOCYTES 29.1 % (15-50); MCH 32.6 pg (26.0-34.0); MCHC 34.7 g/dL (31.0-37.0); MCV 93.9 fL (80.0-100.0); MONOCYTES 10.1 % (2-11); NEUTROPHILS 58.5 % (40-80); PLATELET COUNT 179 10x3/uL (130-400); RBC 4.29 10x6/uL (4.20-6.10); RDW 13.3 % (11.5-14.5); WBC 8.1 10x3/uL (4.8-10.8)
[2018-03-08 16:23] VITALS: BP 95/54
[2018-03-08 16:40] LABS: ALBUMIN 3.7 g/dL (3.4-5.0); ALKALINE PHOSPHATASE 79 U/L (46-116); ALT (SGPT) 32 U/L (10-68); BILIRUBIN - TOTAL 0.25 mg/dL (0.2-1.3); CALC OSMOLALITY 291 mosm/kg (275-300); CALCIUM 9.8 mg/dL (8.5-10.1); CARBON DIOXIDE 24.8 mmol/L (21.0-32.0); CHLORIDE - SERUM 103 mmol/L (98-107); CREATININE - SERUM 1.7 mg/dL (0.6-1.3); GLUCOSE 217 mg/dL (74-106); POTASSIUM - SERUM 4.5 mmol/L (3.5-5.1); PROTEIN - SERUM 7.3 g/dL (6.4-8.2); SODIUM 139 mmol/L (136-145); UREA NITROGEN 31 mg/dL (7-18); eGFR NON AFRICAN AMERICAN 43 mL/min (90-120)
[2018-03-08 16:54] LABS: CKMB 1.1 U/L (0.0-3.6); CREATINE KINASE 58 UL (21-232); LIPASE 243 U/L (73-393); MAGNESIUM - SERUM 1.9 mg/dL (1.8-2.4); PRO BNP 1578 pg/mL (0-125); TROPONIN-I < 0.017 ng/mL (0.000-0.060)
[2018-03-08 17:16] VITALS: BP 92/63
[2018-03-08 18:01] VITALS: BP 98/57
[2018-03-08 19:04] VITALS: BP 109/67
[2018-03-08 20:35] VITALS: BP 100/57
[2018-03-08] MEDS ORDERED: IPRAT-ALBUT 0.5-3 ML UPD (21:31)
[2018-03-09 00:44] VITALS: BP 103/58
[2018-03-09 01:27] VITALS: BP 112/57; Ht 172.7 cm; Wt 103.2 kg
[2018-03-09 04:34] VITALS: BP 100/67
[2018-03-09 07:43] VITALS: BP 103/64
[2018-03-09] MEDS ORDERED: BETAPACE 120 M120 MG PO (10:20)
== END 2018-03-09 10:33 | disposition home or self-care (01) ==
LOC: D.ER 15:54 → D.M2 17:45 → D.EDHOLD 17:45 → OBSVTIME 17:46 → D.M2 19:22
PROVIDERS: Family Medicine
DX: I48.0 Paroxysmal atrial fibrillation (principal); I25.119 Atherosclerotic heart disease of native coronary artery with unspecified angina pectoris; E78.5 Hyperlipidemia, unspecified; I10 Essential (primary) hypertension; E11.40 Type 2 diabetes mellitus with diabetic neuropathy, unspecified; J44.9 Chronic obstructive pulmonary disease, unspecified

== ENCOUNTER 2018-04-05 01:25 | Observation (INO) | payer MEDICARE ==
[~2018-04-05] VITALS: Ht 172.7 cm; Wt 93.2 kg
--- NOTE | ~2018-04-05 | HEMODYNAMI ---
PATIENT:LETICIA LAMB MEDICAL RECORD: [id number] : 54 LOCATION[facility] [id number] ADMISSION DATE: 04/05/18 Generatedon:04/05/201812:40 Patient name: LETICIA LAMB Patient #: [id number] : 1950 Date of study: 04/05/2018 Page: Of Hemodynamic Procedure Report Patient Data Patient Demographics Procedure consent was obtained First Name: LETICIA Gender: Male Last Name: ZAINAB : 1950 [facility] Initial: JOYCE Age: 67 year(s) Patient #: [id number] Race: SSN: [id number] Additional ID: [id number] Contact details Address: [address] State: [place] City: [place] Zip code: [address] Past Medical History Allergies: No known allergies Admission Admission Data Admission Date: 04/05/2018 Admission Time: 2:54 Room #: D.2102 Lab Results Lab Result Date: 04/05/2018 Lab Result Time: 0:00 Biochemistry Name Units Result Min Max BUN mg/dl 29 --(----)-* 7 18 Creatinine mg/dl 1.4 --(----)*- 0.6 1.3 CBC Name Units Result Min Max Hemoglobin g/dl 13.7 --(*---)-- 13.5 17.5 Procedure Procedure Types Cath Procedure Diagnostic Procedure LHC LHC w/Coronaries w/Grafts Cardioversion External PCI Procedure AMI/SVG/FORMING ROLL OPERATOR PTCA or Stent SVG-BMS/IRON Initial Procedure Description Procedure Date Procedure Date: 04/05/2018 Procedure Start Time: 12:13 Procedure End Time: 12:32 Procedure Staff Name Function Phill Gresham MD Performing Physician Theresa Barger RT Monitor Jie Rodrigez RT Scrub Allen Lazar RN Nurse Jasmeet Carroll MD Additional personnel Procedure Data Cath Procedure Fluoroscopy Diagnostic fluoroscopy Total fluoroscopy Time: 2.4 time: 2.4 min min Diagnostic fluoroscopy Total fluoroscopy dose: 764 dose: 764 mGy mGy Contrast Material Contrast Material Type Amount (ml) Isovue 300 77 Entry Location Entry Primary Successful Side Size Upsize Upsize Entry Closure Succes sful Closure Location (Fr) 1 (Fr) 2 (Fr) Remarks Device Remarks Femoral Right 5 Fr 6 Fr Exoseal artery Short Estimated blood loss: 5 ml Diagnostic catheters Device Type Used For End Catheter Placement MULTIPACK Pigtail 5 Fr LV Angiography catheter MULTIPACK JL 4.0 5Fr Left Coronary catheter Angiography DIAGNOSTIC AR2 MOD 5 Fr Multi-vessel catheter ([id number]) Angiography Procedure Complications No complications Procedure Medications Medication Administration Route Dosage 0.9% NaCl I.V. 100 ml/hr Oxygen etCO2 Nasal cannula 5 l/min Heparin Flush Bag added to field 2 bags (1000units/500ml NS) Lidocaine 2% added to field 20 Refer to Anesthesia Notes for Sedation Medications Heparin Bolus I.V. 4000 units Plavix P.O. 75 mg Hemodynamics Rest HGB: 13.7 (g/dl) Heart Rate: 62 (bpm) Pressure Samples Time Site Value (mmHg) Purpose Heart Use Rate(bpm) 12:20 LV 62/39,33 Snapshot 101 Snapshots Pre Cath Intra NCS Post Cath Vital Signs Time Heart Resp SPO2 etCO2 NIBP (mmHg) Rhythm Pain Sedation Rate (ipm) (%) (mmHg) Status Level (bpm) 11:55:01 76 18 100 30 120/76(99) A-Fib 0 (11) 10(A) , No pain 11:59:07 73 20 95 11.2 106/77(88) A-Fib 0 (11) 10(A) , No pain 12:03:08 83 20 99 109/76(94) A-Fib 0 (11) 10(A) , No pain 12:07:14 73 23 94 35.2 99/65(73) A-Fib 0 (11) 10(A) , No pain 12:11:16 78 21 96 36 101/64(81) A-Fib 0 (11) 10(A) , No pain 12:16:27 63 27 99 30.7 132/73(83) A-Fib 0 (11) 8(A) , No pain 12:20:35 83 25 81 33.7 112/84(107) A-Fib 0 (11) 8(A) , No pain 12:24:41 68 24 92 36.7 120/70(97) A-Fib 0 (11) 8(A) , No pain 12:28:49 67 22 91 37.4 103/68(95) A-Fib 0 (11) 8(A) , No pain 12:32:48 66 20 93 35.9 108/77(99) A-Fib 0 (11) 9(A) , No pain Medications Time Medication Route Dose Verified Delivered Reason Notes Effectiveness by by 11:59:23 0.9% NaCl I.V. 100 Allen Allen Per physician ml/hr Nagi Lazar RN RN 11:59:38 Oxygen etCO2 5 Allen Allen Per physician Nasal l/min Nagi Lazar cannula RN RN 11:59:49 Heparin Flush added 2 Allen Allen used for Bag to bags Nagi Lazar procedure (1000units/500ml field RN RN NS) 12:00:06 Lidocaine 2% added 20ml Allen Allen for local to vial Nagi Lazar anesthetic field RN RN 12:11:27 Refer to Allen Allen for sedation Anesthesia Notes Nagi Lazar for Sedation RN RN Medications 12:27:19 Heparin Bolus I.V. 4000 Allen Allen for units Nagi Lazar anticoagulation RN RN 12:37:16 Plavix P.O. 75 mg Allen Allen for Nagi Lazar antiplatelet RN RN therapy Procedure Log Time Note 11:42:50 Diagnostic Cath Status : Elective 11:43:09 Jie Rodrigez RT(R) sent for patient. Start room use. 11:43:10 Time tracking: Regular hours (M-F 7:00 - 5:00) 11:43:14 Plan of Care:Hemodynamics will remain stable., Cardiac rhythm will remain stable., Comfort level will be maintained., Respiratory function will remain adequate., Patient/ family verbilizes understanding of procedure., Procedure tolerated without complication., Recovers from procedure without complications.. 11:44:19 Patient received from Med II to CCL 2 Alert and oriented. Tansferred to table in Supine position. 11:44:20 Warm blankets applied, and marlee hugger turned on for patient comfort. 11:44:20 Correct patient and procedure confirmed by team. 11:44:22 Signed procedure consent form obtained from patient. 11:44:24 ECG and BP/O2 sat monitors applied to patient. 11:54:36 Vital chart was started 11:54:38 Baseline sample Acquired. 11:54:47 Rhythm: atrial flutter 11:54:50 Full Disclosure recording started 11:55:04 H&P Date Dictated: 04/05/2018 New H&P dictated by physician.. 11:55:05 Pre-procedure instructions explained to patient. 11:55:05 Pre-op teaching completed and patient verbalized understanding. 11:55:18 Family in waiting room. 11:55:19 Patient NPO since Midnight. 11:55:21 Is the patient allergic to Iodine/contrast media? No. 11:55:22 Was the patient premedicated? No 11:55:22 Is patient on blood thinner?Yes 11:55:25 ACC The patient was administered the following blood thiners within the last 24 hours: ACCPlavix 11:55:27 Patient diabetic? Yes. 11:55:27 If diabetic: On Metformin? No 11:55:30 Previous problem with sedation/anesthesia? No ? 11:55:31 Snore? Yes 11:55:32 Sleep apnea? Yes 11:55:33 Deviated septum? No 11:55:34 Opens mouth fully? Yes 11:55:34 Sticks out tongue? Yes 11:55:36 Airway obstruction? Yes pack a aday 11:55:51 Dentures? No ? 11:56:01 Pre procedure: right dorsailis pedis pulse 2+ Normal; easily identifiable; not easily obliterated 11:56:02 Pre procedure: left dorsailis pedis pulse 2+ Normal; easily identifiable; not easily obliterated 11:56:07 IV patent on arrival in left forearm with 0.9% NaCl at O. 11:56:09 Lab results completed and on chart. 11:56:17 Right groin area was prepped with chlora-prep and draped in sterile fashion 11:56:18 Alarms reviewed by R. N. 11:56:18 Sharps counted by scrub and verified by R.N. 11:59:11 Lab Result : Creatinine 1.4 mg/dl 11:59:11 Lab Result : BUN 29 mg/dl 11:59:11 Lab Result : Hemoglobin 13.7 g/dl 11:59:23 0.9% NaCl 100 ml/hr I.V. was administered by Allen Lazar RN; Per physician; 11:59:38 Oxygen 5 l/min etCO2 Nasal cannula was administered by Allen Lazar RN; Per physician; 11:59:49 Heparin Flush Bag (1000units/500ml NS) 2 bags added to field was administered by Allen Lazar RN; used for procedure; 12:00:06 Lidocaine 2% 20ml vial added to field was administered by Allen Lazar RN; for local anesthetic; 12:05:03 Jasmeet Carroll MD present and monitoring patient for TIVA. 12:05:08 Physician arrived 12:05:08 --------ALL STOP TIME OUT------ 12:05:09 Final Timeout: patient, procedure, and site verified with staff and physician. All members of the team are in agreement. 12:05:11 Right groin site verified by team. 12:05:13 Physical assessment completed. ASA score P 2 - A patient with mild systemic disease as per Phill Gresham MD. 12:05:17 Sedation plan: IV Moderate Sedation Medication:Versed, Fentanyl 12:05:27 Use device set Femoral Dx 12:05:28 ACIST Syringe (71808) opened to sterile field. 12:05:29 Bag Decanter (2002S) opened to sterile field. 12:05:29 Medline Cath Pack ([id number]) opened to sterile field. 12:05:30 DIAGNOSTIC WIRE .035 260cm J wire (071780) opened to sterile field. 12:05:30 ACIST Hand Control (77864) opened to sterile field. 12:05:31 ACIST Manifold (45158) opened to sterile field. 12:05:31 DIAGNOSTIC Multipack 5Fr catheter set (VQ5106) opened to sterile field. 12:05:32 Tegaderm 4 x 4 (1626W) opened to sterile field. 12:05:33 SHEATH 5FR [place] (BST611) opened to sterile field. 12:07:29 Zero performed for pressure channel P1 12:11:27 Refer to Anesthesia Notes for Sedation Medications was administered by Allen Lazar RN; for sedation; 12:13:28 Procedure started. 12:13:43 Local anesthetic to right femoral artery with Lidocaine 2% by Phill Gresham MD.INITIAL ACCESS ONLY 12:14:04 Quick combo pads placed on patients chest and back. 12:14:07 Defibrillator synced and charged to 275 Joules. 12:14:21 Shock delivered. 12:14:22 Unsuccessful cardioversion. 12:15:15 Defibrillator synced and charged to 360 Joules. 12:16:36 Unsuccessful cardioversion. 12:16:39 Defibrillator synced and charged to 360 Joules. 12:16:41 Shock delivered. 12:18:41 Unsuccessful cardioversion. 12:19:07 A 5 Fr sheath was inserted into the Right Femoral artery 12:19:59 A MULTIPACK Pigtail 5 Fr catheter was advanced over the wire and used for LV Angiography. 12:20:31 LV hemodynamics recorded. 12:20:32 LV gram done using BURR 12:20:34 Injector settings: Ml/sec: 5, Volume: 15, 12:20:39 EF : 20 % 12:20:52 Catheter removed. 12:21:00 A MULTIPACK JL 4.0 5Fr catheter was advanced over the wire and used for Left Coronary Angiography. 12:21:34 LCA angiography performed. 12:21:36 Injector settings: Ml/sec: 3, Volume: 6, 12:21:55 Catheter removed. 12:22:24 A DIAGNOSTIC AR2 MOD 5 Fr catheter ([id number]) was advanced over the wire and used for Multi-vessel Angiography. 12:22:49 SVG to Circ angiography performed. 12:23:48 SVG to LAD angiography performed. 12:23:52 RCA angiography performed. 12:24:00 Catheter removed. 12:24:00 Proceeding to intervention. 12:24:22 SHEATH 6FR [place] (ZVV572) opened to sterile field. 12:24:22 INFLATOR Merit BasixCompak (QF5671) opened to sterile field. 12:24:22 CHOICE PT Extra Support 182cm wire ([id number]) opened to sterile field. 12:24:23 GUIDE 6FR AR 2.0 catheter (NZ4YS98) opened to sterile field. 12:24:32 Sheath upsized to a 6 Fr Short. 12:24:37 6 Fr ar 2 guide catheter was inserted over the wire 12:25:48 choice pt wire advanced. 12:27:19 Heparin Bolus 4000 units I.V. was administered by Allen Lazar RN; for anticoagulation; 12::43 Place stent Inflation Number: 1 A TRISTAN RX 4.0 x 12 stent ([id number]) was prepped and advanced across the Aorta Left -> Mid LAD. The stent was deployed at 13 ROGER for 0:10 (min:sec). 12::51 Stent catheter was removed intact over wire. 12:: Wire removed. 12::52 Sheath removed intact; hemostasis achieved with Exoseal to the Right Femoral artery. 12:: Guide catheter removed. 12::53 Procedure ended.(Physican Out) 12:28:20 EXOSEAL 6Fr (EX600) opened to sterile field. 12::42 Fluoroscopy time 02.40 minutes. 12:: Flurop Dose total: 764 12:: Fluoroscopy dose: 764 mGy 12::53 Contrast amount:Isovue 300 77ml. 12::54 Sharps counted by scrub and verified by R.N. 12:31:38 Insertion/operative site no bleeding no hematoma. 12:31:44 Post-op/insertion site Right Femoral artery dressed using a 4 x 4 and Tegaderm. 12:31:47 Post right femoral artery:stable 12::49 Post Procedure Pulses reassessed and unchanged 12::51 Post procedure rhythm: unchanged. 12::54 Estimated blood loss: 5 ml 12::55 Post procedure instruction explained to patient.Patient verbalizes understanding. 12:31:55 Patient needs reinforcement of post procedure teaching. 12:32:19 Procedure type changed to Cath procedure, Diagnostic procedure, LHC, LHC w/Coronaries w/Grafts, Cardioversion External, PCI procedure, AMI/SVG/FORMING ROLL OPERATOR PTCA or Stent, SVG-BMS/IRON Initial 12:32:20 Procedure and supply charges have been captured, reviewed, submitted and are correct. 12:32:23 Procedure Complication : No complications 12:32:25 Vital chart was stopped 12:32:26 See physician's report for complete and final results. 12:32:31 Report given to Pre/Post Procedure Room. 12:32:33 Patient transfered to Pre/Post Procedure Room with Stretcher. 12:32:36 Procedure ended. 12:32:36 Full Disclosure recording stopped 12:32:42 ACC-PCI Only Patient was given prescriptions, or instructed by Phill Gresham MD to start/continue the following medications upon discharge: Plavix 12:32:43 End room use (Document Last) 12:37:16 Plavix 75 mg P.O. was administered by Aleln Lazar RN; for antiplatelet therapy; Intervention Summary Intervention Notes Time ActionType Lesion and Equipment Used Action# Pressure Duration Attributes 12:27:43 Place stent Aorta Left TRISTAN RX 4.0 x 1 13 00:10 -> Mid LAD 12 stent ([id number]) Device Usage Item Name Manufacture Quantity Catalog Number Hospital Part Current M inimal Lot# / Charge Number Stock Stock Serial# Code ACIST Syringe Acist 1 53408 323255 572276 331368 2 0 (86528) Medical Systems Inc Bag Decanter Microtek 1 565146 92342 868524 5 () Medical Inc. Medline Cath Medline 1 [id number] 590170 26356 144042 5 Pack ([id number]) DIAGNOSTIC St Yazan 1 767678 798617 948347 536299 3 0 WIRE .035 260cm J wire (900317) ACIST Hand Acist 1 94287 747476 484420 535408 5 Control Medical (81010) Systems Inc ACIST Manifold Acist 1 34542 727670 474482 129449 5 (45253) Medical Systems Inc DIAGNOSTIC Cardinal 1 LQ3005 298021 67183 354072 3 0 Multipack 5Fr Health catheter set (ZS6853) Tegaderm 4 x 4 3M 1 1626W 337261 157015 616981 5 (1626W) SHEATH 5FR Terumo 1 PGP478 295376 533675 528788 5 [place] (BSM824) MULTIPACK Cardinal 1 516760 5 Pigtail 5 Fr Health catheter MULTIPACK JL Cardinal 1 982488 5 4.0 5Fr Health catheter DIAGNOSTIC AR2 Cardinal 1 [id number] 156132 091736 331069 2 0 MOD 5 Fr Health catheter (132694F) SHEATH 6FR Terumo 1 LLL737 015490 578721 099007 4 0 [place] (TYL860) INFLATOR Merit Merit 1 CI1360 992856 463332 687793 1 5 Tout (KP8782) CHOICE PT [place] 1 [id number] 776274 838482 059034 5 Extra Support Scientific 182cm wire ([id number]) GUIDE 6FR AR Medtronic 1 [id number] 987353 82828 995261 1 2.0 catheter (CQ6DF41) TRISTAN RX 4.0 x Medtronic 1 [id number] 837117 4562893 754062 5 [id number] 12 stent ([id number]) EXOSEAL 6Fr Cardinal 1 EX600 800597 175828 956053 1 0 (EX600) Health Signature Audit [place] Stage Time Signature Unsigned Intra-Procedure 04/05/2018 Theresa Barger 12:39:59 PM RT(R) Signatures Monitor : Theresa Barger RT Signature : Date : Time : [address] [place] [address]
[~2018-04-05 01:25] MED LIST changes: +BETAPACE 120 M120 MG PO; +IPRAT-ALBUT 0.5-3 ML UPD
[2018-04-05 01:57] LABS: BASOPHILS 0.4 % (0-2); EOSINOPHILS 2.1 % (0-7); HEMATOCRIT 39.4 % (42.0-54.0); HEMOGLOBIN 13.7 g/dL (13.5-17.5); IMMATURE GRANULOCYTES 0.3 % (0-5); LYMPHOCYTES 32.8 % (15-50); MCH 32.3 pg (26.0-34.0); MCHC 34.8 g/dL (31.0-37.0); MCV 92.9 fL (80.0-100.0); MEAN PLATELET VOLUME 11.6 fL (7.4-10.4); MONOCYTES 8.3 % (2-11); NEUTROPHILS 56.1 % (40-80); PLATELET COUNT 203 10x3/uL (130-400); RBC 4.24 10x6/uL (4.20-6.10); RDW 12.9 % (11.5-14.5); WBC 9.3 10x3/uL (4.8-10.8)
[2018-04-05 02:07] LABS: INR 1.04 (0.85-1.17); PROTIME 13.1 SECONDS (11.6-15.0)
[2018-04-05 02:08] LABS: APTT 30.2 SECONDS (22.8-39.4)
[2018-04-05 02:12] LABS: ALBUMIN 3.4 g/dL (3.4-5.0); ALKALINE PHOSPHATASE 66 U/L (46-116); ALT (SGPT) 30 U/L (10-68); CALC OSMOLALITY 291 mosm/kg (275-300); CALCIUM 8.8 mg/dL (8.5-10.1); CARBON DIOXIDE 27.3 mmol/L (21.0-32.0); CHLORIDE - SERUM 101 mmol/L (98-107); CREATININE - SERUM 1.4 mg/dL (0.6-1.3); POTASSIUM - SERUM 3.9 mmol/L (3.5-5.1); PROTEIN - SERUM 6.8 g/dL (6.4-8.2); SODIUM 138 mmol/L (136-145); UREA NITROGEN 29 mg/dL (7-18); eGFR NON AFRICAN AMERICAN 54 mL/min (90-120)
[2018-04-05 02:15] LABS: GLUCOSE 276 mg/dL (74-106)
[2018-04-05 02:19] VITALS: BP 95/53
[2018-04-05 02:23] LABS: CKMB 1.1 U/L (0.0-3.6); CREATINE KINASE 86 UL (21-232); MAGNESIUM - SERUM 1.8 mg/dL (1.8-2.4); TROPONIN-I < 0.017 ng/mL (0.000-0.060)
[2018-04-05 02:53] VITALS: BP 122/73
--- NOTE | 2018-04-05 02:54 | NUR ---
PAIN AT 3, RESP REGULAR. NO DISTRESS NOTED.
[2018-04-05 04:00] VITALS: BP 110/68
[2018-04-05 04:39] VITALS: BP 110/68; Ht 172.7 cm; Wt 93.2 kg
[2018-04-05 08:08] VITALS: BP 101/65
[2018-04-05 08:48] LABS: BASOPHILS 0.4 % (0-2); EOSINOPHILS 2.9 % (0-7); HEMATOCRIT 40.8 % (42.0-54.0); HEMOGLOBIN 14.1 g/dL (13.5-17.5); IMMATURE GRANULOCYTES 0.4 % (0-5); LYMPHOCYTES 28.4 % (15-50); MCH 32.2 pg (26.0-34.0); MCHC 34.6 g/dL (31.0-37.0); MCV 93.2 fL (80.0-100.0); MEAN PLATELET VOLUME 11.8 fL (7.4-10.4); NEUTROPHILS 57.9 % (40-80); PLATELET COUNT 207 10x3/uL (130-400); RBC 4.38 10x6/uL (4.20-6.10); RDW 12.9 % (11.5-14.5)
[2018-04-05 08:51] LABS: ANION GAP 17.4 mmol/L (8-16); CALCIUM 9.6 mg/dL (8.5-10.1); CARBON DIOXIDE 24.8 mmol/L (21.0-32.0); CREATININE - SERUM 1.2 mg/dL (0.6-1.3); POTASSIUM - SERUM 4.2 mmol/L (3.5-5.1)
--- NOTE | 2018-04-05 09:37 | NUR ---
PT AWARE AND VERBALIZED UNDERSTANDING OF HEART CATH TO TAKE PLACE THIS AFTERNOON AND PT AWARE OF NPO STATUS UNTIL AFTER HEART CATH. CONSENTS SIGNED FOR PROCEDURE AND PLACED IN CHART. EKG IN CHART.
--- NOTE | 2018-04-05 10:57 | NUR ---
UP SOB WITH CALL LIGHT IN REACH. WILL MONITOR NEEDS.
--- NOTE | 2018-04-05 11:30 | NUR ---
PT PREOPED FOR HEART CATH. PT WEARING GOWN AND NO UNDERWEAR AND TOOK TELEMETRY OFF.
--- NOTE | 2018-04-05 11:45 | NUR ---
PT TAKEN TO PIPE INSULATOR VIA BED.
[2018-04-05 12:00] VITALS: BP 112/74; BP 112/744
--- NOTE | 2018-04-05 12:46 | NUR ---
PT TO DISCHARGE FROM SUPERVISOR SCREEN MAKING.
--- NOTE | 2018-04-05 12:51 | NUR ---
PT'S BELONGINGS TAKEN TO ROOM 10 IN CATH RECOVERY.
[2018-04-05] MEDS ORDERED: BETAPACE 80 MG80 MG PO (13:01)
--- NOTE | 2018-04-05 13:10 | NUR ---
PATIENT AWAKE, EATING TURKEY SANDWICH. VSS ON ROOM AIR. RIGHT GROIN DRESSING IS CDI, NO S/S OF BLEEDING OR HEMATOMA. NO N/V. NO C/O OF PAIN, NUMBNESS, OR TINGLING.
--- NOTE | 2018-04-05 13:40 | NUR ---
PATIENT AWAKE, ASSISTED WITH URINAL. VSS ON ROOM AIR. RIGHT GROIN DRESSING IS CDI, NO S/S OF BLEEDING OR HEMATOMA. NO C/O PAIN, NUMBNESS, OR TINGLING.
--- NOTE | 2018-04-05 14:10 | NUR ---
PATIENT RESTING INTERMITTENTLY, VSS ON ROOM AIR. RIGHT GROIN DRESSING IS CDI, NO S/S OF BLEEDING OR HEMATOMA. SPOKE WITH FRIEND ELTON REGARDING RIDE HOME FOR PATIENT. CALLED IN PRESCRIPTION SOTALOL TO [facility] PER REQUEST OF PATIENT.
--- NOTE | 2018-04-05 14:40 | NUR ---
PATIENT RESTING. VSS ON ROOM AIR. RIGHT GROIN DRESSING IS CDI, NO S/S OF BLEEDING OR HEMATOMA.
--- NOTE | 2018-04-05 15:10 | NUR ---
PATIENT AWAKE, NO C/O PAIN, NUMBNESS, OR TINGLING. VSS ON ROOM AIR. RIGHT GROIN DRESSING IS CDI, NO S/S OF BLEEDING OR HEMATOMA.
--- NOTE | 2018-04-05 15:40 | NUR ---
PATIENT AWAKE, HEAD OF BED ELEVATED TO 30 DEGREES. RIGHT GROIN DRESSING IS CDI, NO S/S OF BLEEDING OR HEMATOMA. VSS ON ROOM AIR. IV REMOVED.
--- NOTE | 2018-04-05 16:09 | NUR ---
PATIENT FRIEND PRESENT AT BEDSIDE, EDUCATION REGARDING DISCHARGE INSTRUCTIONS AND MEDICATIONS GIVEN TO PATIENT, ALL QUESTIONS ANSWERED. VSS ON ROOM AIR. HEAD OF BED ELEVATED TO 90 DEGREES. RIGHT GROIN DRESSING IS CDI, NO S/S OF BLEEDING OR HEMATOMA.
--- NOTE | 2018-04-05 16:15 | NUR ---
PATIENT TRANSPORTED VIA WHEELCHAIR TO CAR WITH FRIEND DRIVING. ALL BELONGINGS WITH PATIENT.
--- NOTE | 2018-04-06 18:15 | OP ---
PATIENT NAME: LETICIA LAMB MEDICAL RECORD: [id number] :54 LOCATION:[facility] ADMISSION DATE:04/05/18 SURGEON: MICHAEL FONSECA MD DATE OF OPERATION: 04/05/2018 PROCEDURES: 1. PTCA stent vein graft to LAD. 2. Left heart catheterization. 3. Selective coronary angiography. 4. Vein graft angiography. 5. Left ventriculogram. 6. DC cardioversion. INDICATION: Angina, coronary artery disease, atrial fibrillation. PROCEDURE IN DETAIL: After informed consent was obtained and after a detailed description of risks, benefits as well as alternative therapies, the patient elected to proceed with angiogram and cardioversion. The right femoral area was prepped and draped in normal sterile fashion. Right femoral artery was cannulated via modified Seldinger technique with placement of 6-Bahamian sheath. All catheters exchanged through this sheath. FINDINGS: Left ventriculogram was performed in standard 30-degree BURR view, reveals global hypokinesis throughout all segments. Overall ejection fraction is 20%. SELECTIVE CORONARY ANGIOGRAPHY: 1. Left main is with no significant angiographic disease. 2. Left anterior descending is closed. 3. Left circumflex is closed. 4. Right coronary is closed. 5. Vein graft to the left circumflex is widely patent. Distal circumflex is widely patent. 6. Vein graft to the right coronary is patent; however, there is 80% in-stent restenosis in the proximal shaft where there was a previously placed stent. The distal LAD is widely patent. 7. Right coronary is nongrafted. PTCA STENT OF THE VEIN GRAFT TO THE LEFT ANTERIOR DESCENDING: The stent used was a 4.0 x 12 mm Og. Result was 0% residual stenosis. OVERALL IMPRESSION: Successful percutaneous transluminal coronary angioplasty stent of the vein graft to the left anterior descending going from 80% initial stenosis that was in-stent restenosis to 0% residual stenosis now. DC CARDIOVERSION: IV conscious sedation was performed per anesthesia. Continuous heart rate, O2 saturation, blood pressure monitoring all undertaken, all of which remains stable. He received 3 shocks at 275, 360, and 360 joules. This failed to convert him to sinus rhythm. OVERALL IMPRESSION: Unsuccessful DC cardioversion. TRANSINT:[id number] Voice Confirmation ID: [id number] DOCUMENT ID: [id number] OPERATIVE REPORT [id number] LETICIA LAMB MICHAEL OLMSTEAD MD at 1815 CC: [id number] DICTATION DATE: 04/05/18 1238 ECONOMIC ADVISER: 04/05/18 1257 DIS IN 04/05/18 [id number] [place] [address]
--- NOTE | 2018-04-06 18:15 | DS ---
PATIENT:LETICIA LAMB :54 MEDICAL RECORD: [id number] DISCHARGE SUMMARY ADMISSION DATE: 04/05/18 DISCHARGE DATE: 04/05/18 DIAGNOSES: 1. Angina. 2. Coronary artery disease. 3. Percutaneous transluminal coronary angioplasty stent vein graft to left anterior descending this admission. 4. Atrial fibrillation. 5. Unsuccessful DC cardioversion. HOSPITAL COURSE: Mr. Lamb presents with angina and atrial fibrillation. He underwent DC cardioversion; however, this failed to restore sinus rhythm. Cardiac catheterization revealed severe cardiomyopathy, ejection fraction 20% and critical disease of the vein graft to the LAD. He underwent successful PTCA stent of the vein graft to the LAD, discharged home to continue the aspirin and Plavix that he was on, to add sotalol 80 mg b.i.d. to his medical regimen. Follow up with [facility] in 1 month. TRANSINT:[id number] Voice Confirmation ID: [id number] DOCUMENT ID: [id number] MICHAEL FONSECA MD at 1815 CC: [id number] DICTATION DATE: 04/05/18 1236 LABORATORY DEVELOPMENT TECHNICIAN: 04/06/18 0018 DIS IN 04/05/18 [facility] [address] [place] [address]
== END 2018-04-05 16:15 | disposition home or self-care (01) ==
LOC: D.ER 01:25 → D.EDHOLD 02:54 → OBSVTIME 02:54 → D.EDHOLD 02:54 → D.M2 03:27 → D.CLR 12:51
PROVIDERS: Family Medicine; ADMIT Internal Medicine Interventional Cardiology
DX: I25.110 Atherosclerotic heart disease of native coronary artery with unstable angina pectoris (principal); I42.9 Cardiomyopathy, unspecified; E11.40 Type 2 diabetes mellitus with diabetic neuropathy, unspecified; I11.0 Hypertensive heart disease with heart failure; I50.9 Heart failure, unspecified; J44.9 Chronic obstructive pulmonary disease, unspecified; I48.0 Paroxysmal atrial fibrillation; T82.855A Stenosis of coronary artery stent, initial encounter; Y83.8 Other surgical procedures as the cause of abnormal reaction of the patient, or of later complication, without mention of misadventure at the time of the procedure
CPT/HCPCS: 93459; C9604

== ENCOUNTER 2018-04-28 08:30 | Emergency (ER) | payer MEDICARE, MEDICAID ==
[~2018-04-28] VITALS: Ht 172.7 cm; Wt 99.5 kg
--- NOTE | ~2018-04-28 | HEMODYNAMI ---
PATIENT:LETICIA LAMB MEDICAL RECORD: [id number] : 54 [facility] ADMISSION DATE: 04/28/18 Generatedon:04/28/201816:50 Patient name: LETICIA LAMB Patient #: [id number] : 1950 Date of study: 04/28/2018 Page: Of Hemodynamic Procedure Report Patient Data Patient Demographics Procedure consent was obtained First Name: LETICIA Gender: Male Last Name: ZAINAB : 1950 Middle Initial: JOYCE Age: 67 year(s) Patient #: [id number] Race: SSN: [id number] Additional ID: [id number] Contact details Address: [address] State: [place] City: [place] Zip code: [address] Past Medical History Allergies Allergen Reaction Date Comments Reported Other allergy 04/28/2018 [facility] Admission Admission Data Admission Date: 04/28/2018 Admission Time: 8:30 Admit Source: Other Procedure Procedure Types Cath Procedure Diagnostic Procedure Cardioversion External Procedure Description Procedure Date Procedure Date: 04/28/2018 Procedure Start Time: 16:38 Procedure End Time: 16:49 Procedure Staff Name Function Phill Gresham MD Performing Physician Dread Amaro RT Spinner Tender Jon Hassan RT Spinner Tender Saray Garcia RT Monitor Allyson Ellis RN Nurse Cuco Garcia CRNA Additional personnel Procedure Data Cath Procedure Fluoroscopy Diagnostic fluoroscopy Total fluoroscopy Time: 0 time: 0 min min Diagnostic fluoroscopy Total fluoroscopy dose: 0 dose: 0 mGy mGy Contrast Material Contrast Material Type Amount (ml) Isovue 300 0 Estimated blood loss: 0 ml Procedure Complications No complications Procedure Medications Medication Administration Route Dosage Oxygen etCO2 Nasal cannula 2 l/min Refer to Anesthesia Notes for Sedation Medications Hemodynamics Rest Heart Rate: 86 (bpm) Snapshots Pre Cath Intra NCS Post Cath Vital Signs Time Heart Resp SPO2 etCO2 NIBP (mmHg) Rhythm Pain Sedation Rate (ipm) (%) (mmHg) Status Level (bpm) 16:36:50 97 21 95 0 Measuring A-Fib 0 (11) 10(A) , No pain 16:37:05 65 21 98 31.2 111/89(104) A-Fib 0 (11) 10(A) , No pain 16:42:37 94 20 98 8.1 102/60(73) A-Fib 0 (11) 9(A) , No pain 16:46:30 98 26 100 17.1 105/83(101) A-Fib 0 (11) 9(A) , No pain Medications Time Medication Route Dose Verified Delivered Reason Notes Effective ness by by 16:36:31 Oxygen etCO2 2 Phill Valadez used for Nasal l/min Marga Ellis RN procedure cannula 16:36:33 Refer to Phill Valadez Anesthesia Marga Ellis RN Notes for Sedation Medications Procedure Log Time Note 16:00:42 Jon Hassan RT(R) sent for patient. Start room use. 16:15:13 Cuco Garcia CRNA present and monitoring patient for TIVA. 16:15:16 Informed consent obtained and on chart 16:15:19 Admit Source: Other 16:15:47 Time tracking: Regular hours (M-F 7:00 - 5:00) 16:15:55 Plan of Care:Hemodynamics will remain stable., Cardiac rhythm will remain stable., Comfort level will be maintained., Respiratory function will remain adequate., Patient/ family verbilizes understanding of procedure., Procedure tolerated without complication., Recovers from procedure without complications.. 16:16:52 H&P Date Dictated: 04/28/2018 Within 30 days and on chart.. 16:27:58 Patient arrived from ED to CCL 2. Patient remains on bed/stretcher for procedure. 16:29:35 ECG and BP/O2 sat monitors applied to patient. 16:35:01 Vital chart was started 16:36:31 Oxygen 2 l/min etCO2 Nasal cannula was administered by Allyson Ellis RN; used for procedure; 16:36:33 Refer to Anesthesia Notes for Sedation Medications was administered by Allyson Ellis RN; ; 16:37:03 Pre-procedure instructions explained to patient. 16:37:04 Pre-op teaching completed and patient verbalized understanding. 16:37:05 Family unavailable. 16:37:07 Patient NPO since Breakfast. 16:37:42 Patient allergic to Other allergysimcor 16:37:44 Is the patient allergic to Iodine/contrast media? No. 16:37:47 Is patient on blood thinner?Yes 16:37:48 ACC The patient was administered the following blood thiners within the last 24 hours: ACCPlavix 16:37:50 Patient diabetic? No. 16:37:52 Previous problem with sedation/anesthesia? No ? 16:37:54 Snore? No 16:37:55 Sleep apnea? No 16:37:56 Deviated septum? No 16:37:56 Opens mouth fully? Yes 16:38:01 Sticks out tongue? Yes 16:38:04 Airway obstruction? Yes copd 16:38:06 Dentures? No ? 16:38:09 Lab results completed and on chart. 16:38:19 Full Disclosure recording started 16:38:19 Quick combo pads placed on patients chest and back. 16:38:32 Baseline sample Acquired. 16:38:38 Rhythm: atrial fibrillation 16:38:41 Physician arrived 16:38:41 --------ALL STOP TIME OUT------ 16:38:42 Final Timeout: patient, procedure, and site verified with staff and physician. All members of the team are in agreement. 16:38:48 Fire Safety Assessment: C--Open oxygen or nitrous oxide is being used. 16:38:51 Physical assessment completed. ASA score P 3 - A patient with severe systemic disease as per Phill Gresham MD. 16:38:54 Sedation plan: TIVA Medication:Propofol 16:39:28 procedure started. 16:42:47 Defibrillator synced and charged to 275 Joules. 16:42:52 Shock delivered. 16:43:56 Unsuccessful cardioversion. 16:45:06 Defibrillator synced and charged to 360 Joules. 16:45:11 Shock delivered. 16:46:25 Unsuccessful cardioversion. 16:46:33 Procedure ended.(Physican Out) 16:46:45 Fluoroscopy time 00.00 minutes. 16:46:46 Flurop Dose total: 0 16:46:47 Fluoroscopy dose: 0 mGy 16:46:49 Contrast amount:Isovue 300 0ml. 16:47:02 Post-procedure physical assessment completed. ASA score P 3 - A patient with severe systemic disease as per Phill Gresham MD. 16:47:32 Post procedure rhythm: atrial fibrillation 16:47:45 Estimated blood loss: 0 ml 16:47:46 Post procedure instruction explained to patient.Patient verbalizes understanding. 16:47:47 Patient needs reinforcement of post procedure teaching. 16:48:38 Procedure and supply charges have been captured, reviewed, submitted and are correct. 16:48:40 Procedure Complication : No complications 16:48:42 Vital chart was stopped 16:48:44 See physician's report for complete and final results. 16:49:24 Report given to Pre/Post Procedure Room. 16:49:26 Patient transfered to Pre/Post Procedure Room with Stretcher. 16:49:29 Procedure ended. 16:49:29 Full Disclosure recording stopped 16:49:34 End room use (Document Last) Signature Audit [place] Stage Time Signature Unsigned Intra-Procedure 04/28/2018 Dread Amaro 4:50:15 PM RT(R) Signatures Monitor : Saray Garcia Signature : RT Date : Time : [id number] [place] [id number]
[2018-04-28 08:33] VITALS: Ht 172.7 cm; Wt 99.5 kg
[2018-04-28 09:19] LABS: BASOPHILS 0.4 % (0-2); EOSINOPHILS 2.4 % (0-7); HEMATOCRIT 41.8 % (42.0-54.0); HEMOGLOBIN 14.7 g/dL (13.5-17.5); IMMATURE GRANULOCYTES 0.3 % (0-5); MCH 32.9 pg (26.0-34.0); MCHC 35.2 g/dL (31.0-37.0); MCV 93.5 fL (80.0-100.0); MEAN PLATELET VOLUME 12.2 fL (7.4-10.4); MONOCYTES 9.7 % (2-11); NEUTROPHILS 60.2 % (40-80); PLATELET COUNT 175 10x3/uL (130-400); RBC 4.47 10x6/uL (4.20-6.10); RDW 13.3 % (11.5-14.5); WBC 7.8 10x3/uL (4.8-10.8)
[2018-04-28 09:26] LABS: PROTIME 12.7 SECONDS (11.6-15.0)
[2018-04-28 09:27] LABS: APTT 31.8 SECONDS (22.8-39.4)
[2018-04-28 10:26] LABS: ALBUMIN 3.9 g/dL (3.4-5.0); ALKALINE PHOSPHATASE 104 U/L (46-116); ALT (SGPT) 29 U/L (10-68); BILIRUBIN - TOTAL 0.25 mg/dL (0.2-1.3); CALC OSMOLALITY 286 mosm/kg (275-300); CALCIUM 9.1 mg/dL (8.5-10.1); CARBON DIOXIDE 22.8 mmol/L (21.0-32.0); CHLORIDE - SERUM 99 mmol/L (98-107); CREATININE - SERUM 1.2 mg/dL (0.6-1.3); POTASSIUM - SERUM 4.3 mmol/L (3.5-5.1); PROTEIN - SERUM 7.4 g/dL (6.4-8.2); SODIUM 135 mmol/L (136-145); UREA NITROGEN 19 mg/dL (7-18); eGFR NON AFRICAN AMERICAN 64 mL/min (90-120)
[2018-04-28 10:29] LABS: GLUCOSE 370 mg/dL (74-106)
[2018-04-28 10:37] LABS: CKMB 1.4 U/L (0.0-3.6); CREATINE KINASE 89 UL (21-232); MAGNESIUM - SERUM 1.9 mg/dL (1.8-2.4); TROPONIN-I 0.016 ng/mL (0.000-0.060)
[2018-04-28 16:45] VITALS: BP 102/62
--- NOTE | 2018-04-28 17:11 | NUR ---
RECIEVED TO ROOM VIA STRETCHER FROM [employer]PER[employer] WITH REPORT OF A FIB AFTER CARDIOVERSION. PATIENT ALERT AND ORIENTED WITH PAIN DENIED
--- NOTE | 2018-04-28 17:53 | NUR ---
PIV REMOVED. VSS. REMAINS AFIB RATE 70'S. DOC CP. REVIEWED DC PAPERWORK
--- NOTE | 2018-05-01 11:46 | OP ---
PATIENT NAME: LETICIA LAMB MEDICAL RECORD: [id number] :54 LOCATION:D.ER ADMISSION DATE: SURGEON: MICHAEL FONSECA MD DATE OF OPERATION: 04/28/2018 PROCEDURE: DC cardioversion. INDICATION: Atrial fibrillation. PROCEDURE IN DETAIL: IV conscious sedation was performed per anesthesia. Continuous heart rate, O2 saturation, blood pressure monitoring all undertaken, all of which remained stable. He received 2 shocks. This did restore sinus rhythm; however, he reverted back to atrial fibrillation. OVERALL IMPRESSION: Successful DC cardioversion. The patient subsequently reverted back to atrial fibrillation. Continue sotalol. Consider cardioversion in the future. TRANSINT:[id number] Voice Confirmation ID: [id number] DOCUMENT ID: [id number] MICHAEL FONSECA MD at 1146 CC: [id number] DICTATION DATE: 04/28/18 1648 PRE OWNED SALES CONSULTANT: 04/29/18 0040 DEP ER 04/28/18 [id number] [place] [address]
--- NOTE | 2018-05-01 11:46 | CN ---
PATIENT NAME:LETICIA LAMB MEDICAL RECORD: [id number] : 54 LOCATION:D.ER ADMIT DATE: ACCOUNT: [id number] CONSULTING PHYSICIAN: MICHAEL FONSECA MD REFERRING PHYSICIAN: HELEN LEE MD DATE OF CONSULTATION: 04/28/2018 DIAGNOSES: 1. Atrial fibrillation, new onset. 2. Chronic obstructive pulmonary disease. 3. History of paroxysmal atrial fibrillation. 4. Coronary artery disease. 5. Hypertension. 6. Hyperlipidemia. HISTORY OF PRESENT ILLNESS: This gentleman presents with palpitations and atrial fibrillation. He was on sotalol previously. His last DC cardioversion was February. Last cardiac stent is February. He was having no chest pain, just the palpitations and atrial fibrillation that started last night. PHYSICAL EXAMINATION: GENERAL APPEARANCE: Well-nourished, well-developed, appears stated age. Level of distress, comfortable. PSYCHIATRIC: Mental status, alert, normal affect. Orientation, oriented to time, place and person. EYES: Lids and conjunctiva, noninjected. No discharge, no pallor. ENT: Lips, teeth, gums, normal dentition. Oropharynx, no cyanosis, no pallor. NECK: Carotid arteries, bilateral normal upstroke, no bruits, no thrills. JUGULAR VEINS: No jugular venous pressure or distention. CERVICAL LYMPH NODES: Nontender, nonenlarged. THYROID: Not enlarged. Nontender. No nodules. LUNGS: Respiratory effort, unlabored. CHEST: Normal curvature. No thoracic deformity. No chest wall tenderness. Percussion, resonant. Auscultation, clear. No wheezes, no rales, no rhonchi. CARDIOVASCULAR: Precordial exam, nondisplaced. No heaves or pericardial thrills. Rate and rhythm, regular. Heart sounds, normal S1, normal S2. No S3, no gallop, no rub. Systolic murmur, not heard. Diastolic murmur, not heard. EXTREMITIES: No cyanosis, no edema. Peripheral pulses, full and equal in all extremities, except as noted. No bruits appreciated. ABDOMEN: Soft, nondistended. Normal aorta. No bruit. Nontender. No masses. Liver, nontender, no hepatomegaly. Spleen, nontender, no splenomegaly. MUSCULOSKELETAL: No joint tenderness. No joint swelling. No erythema. NEUROLOGICAL: Normal gait, normal strength, normal tone. SKIN: Warm and dry. OVERALL IMPRESSION: Atrial fibrillation. At this time, we will try Corvert. If Corvert fails, will proceed with repeat DC cardioversion. TRANSINT:[id number] Voice Confirmation ID: [id number] DOCUMENT ID: [id number] CONSULT REPORT [id number] LETICIA LAMB, MICHAEL VICTOR at 1146 CC: [id number] DICTATION DATE: 04/28/18 1235 EMBEDDED SOFTWARE ARCHITECT: 04/28/184 DEP ER 04/28/18 [address] [place] [address]
== END 2018-04-28 16:45 | disposition other institution (70) ==
LOC: D.ER 08:30 → D.CLR 17:02
PROVIDERS: Family Medicine
DX: I48.91 Unspecified atrial fibrillation (principal); I25.10 Atherosclerotic heart disease of native coronary artery without angina pectoris; E11.9 Type 2 diabetes mellitus without complications; I10 Essential (primary) hypertension; J44.9 Chronic obstructive pulmonary disease, unspecified; F17.200 Nicotine dependence, unspecified, uncomplicated

== ENCOUNTER → 2018-05-03 12:19 | Outpatient (CLI) | payer MEDICARE, MEDICAID ==
[2018-04-28 08:33] VITALS: BMI 33.3
== END | disposition home or self-care (01) ==
LOC: D.RAD 12:19
DX: J44.9 Chronic obstructive pulmonary disease, unspecified (principal)

== ENCOUNTER 2018-05-21 01:12 | Observation (INO) | payer MEDICARE, MEDICAID ==
[2018-05-21] VITALS (7 sets, daily range): BP systolic 98–111; BP diastolic 47–73; Ht 172.7 cm; Wt 93.1 kg
[~2018-05-21] VITALS: Ht 172.7 cm; Wt 93.1 kg
--- NOTE | ~2018-05-21 | EC ---
PATIENT:LETICIA LAMB DATE OF SERVICE: 05/21/18 SEX: M MEDICAL RECORD: [id number] DATE OF : 54 LOCATION:D.M2 D.211 AGE OF PATIENT: 67 ADMISSION DATE: 05/21/18 REFERRING PHYSICIAN: INTERPRETING PHYSICIAN: MICHAEL GRESHAM MD ECHOCARDIOGRAM REPORT ECHO CHARGES 4 ECHO COMPLETE Date: 05/21/18 CLINICAL DIAGNOSIS: AFIB ECHOCARDIOGRAPHIC MEASUREMENTS (adult normal given) AC root (d.<3.7cm) 3.0 cm LV Septum d (<1.2 cm> 1.5 cm Valve Excursion 2.0 cm LV Septum (systole) 1.7 cm Left Atria (s.<4.0cm> 4.4 cm LVPW d(<1.2cm) 1.7 cm RV (d.<2.3cm) 3.1 cm LVPW (sytole) 1.9 cm LV diastole(<5.6CM) 6.7 cm MV E-F(>70mm/sec) cm LV systole 6.0 cm LVOT Diameter 1.9 cm MV exc.(>10mm) cm Est.ejection fraction (50-75%) % DOPPLER: LVIT cm/sec A 76 cm/sec E 80 cm/sec LA cm/sec RVSP 22.6 mmHg LVOT 114 cm/sec AOP1/2T m/s Asc. Ao 124 cm/sec RVOT 96 cm/sec RA cm/sec PA 92 cm/sec AV Gradient Peak 6.2 mmHg AV Mean 3.1 mmHg AV Area 3.0 cm MV Gradient Peak 3.8 mmHg MV Mean 2.5 mmHg MV Area cm COMMENTS: Projector Operator: Domi [facility] Professional Athlete: 1 Dr. Gresham TAPE# PACS Pericardial Effusion N DATE OF SERVICE: FINDINGS: 1. Left ventricular chamber size is within normal limits. Left ventricular systolic function is mildly reduced to lower limits of normal at 45% to 50%. 2. Left atrium is enlarged at 4.4 cm. Right atrium and right ventricular chamber sizes are as well mildly dilated. 3. Valvular structures have normal structure and motion. 4. Doppler interrogation reveals moderate mitral regurgitation and mild tricuspid regurgitation. No other valvular insufficiency or stenosis. ECHOCARDIOGRAM REPORT [id number] LETICIA LAMB Pulmonary systolic pressure is estimated at 23 mmHg. 5. No evidence of pericardial effusion or left ventricular thrombus. TRANSINT:[id number] Voice Confirmation ID: [id number] DOCUMENT ID: [id number] MICHAEL GRESHAM MD CC: [id number] DICTATION DATE: 05/22/18 1148 ARTIFICIAL INSEMINATION TECHNICIAN: 05/22/18 1231 ADM IN [facility] [address] [id number]
--- NOTE | ~2018-05-21 | HEMODYNAMI ---
PATIENT:LETICIA LAMB MEDICAL RECORD: [id number] : 54 LOC[id number] ADMISSION DATE: 05/21/18 Generatedon:05/22/201811:35 Patient name: LETICIA LAMB Patient #: [id number] : 1950 Date of study: 05/22/2018 Page: Of Hemodynamic Procedure Report Patient Data Patient Demographics Procedure consent was obtained First Name: LETICIA Gender: Male Last Name: ZAINAB : 1950 [facility] Initial: SRAVANTHI Age: 67 year(s) Patient #: [id number] Race: SSN: [id number] Additional ID: [id number] Contact details Address: [address] State: [place] City: [place] Zip code: [address] Past Medical History Allergies Allergen Reaction Date Comments Reported Other allergy 04/28/2018 [facility] Admission Admission Data Admission Date: 05/21/2018 Admission Time: 4:20 Room #: D.2114 Procedure Procedure Types Cath Procedure Diagnostic Procedure [facility] w/Coronaries FFR/IVUS Intra-Coronary IVUS Initial PCI Procedure AMI/SVG/GRAIN BROKER AND MARKET OPERATOR PTCA or Stent SVG-BMS/IRON Initial Procedure Description Procedure Date Procedure Date: 05/22/2018 Procedure Start Time: 11:15 Procedure End Time: 11:35 Procedure Staff Name Function Phill Gresham MD Performing Physician Anca Harris RT Monitor Allyson Ellis RN Nurse Dread Amaro RT Scrub Procedure Data Cath Procedure Fluoroscopy Diagnostic fluoroscopy Total fluoroscopy Time: 4.1 time: 4.1 min min Diagnostic fluoroscopy Total fluoroscopy dose: 657 dose: 657 mGy mGy Contrast Material Contrast Material Type Amount (ml) Isovue 300 113 Entry Location Entry Primary Successful Side Size Upsize Upsize Entry Closure Succes sful Closure Location (Fr) 1 (Fr) 2 (Fr) Remarks Device Remarks Femoral Right 5 Fr 6 Fr Exoseal artery Short Estimated blood loss: 10 ml Diagnostic catheters Device Type Used For End Catheter Placement MULTIPACK Pigtail 5 Fr LV Angiography catheter MULTIPACK JL 4.0 5Fr Left Coronary catheter Angiography MULTIPACK 3DRC 5Fr Internal mammary catheter arteriography DIAGNOSTIC AR2 MOD 5 Fr SVG Angiography catheter ([id number]) DIAGNOSTIC AR2 MOD 5 Fr SVG Angiography catheter ([id number]) Procedure Complications No complications Procedure Medications Medication Administration Route Dosage Oxygen etCO2 Nasal cannula 2 l/min Lidocaine 2% added to field 20 Heparin Flush Bag added to field 2 bags (1000units/500ml NS) 0.9% NaCl I.V. 100 ml/hr Versed I.V. 1 mg Fentanyl I.V. 50 mcg Versed I.V. 1 mg Fentanyl I.V. 50 mcg Heparin Bolus I.V. 4000 units Hemodynamics Rest Heart Rate: 69 (bpm) Snapshots Pre Cath Intra NCS Post Cath Vital Signs Time Heart Resp SPO2 etCO2 NIBP (mmHg) Rhythm Pain Sedation Rate (ipm) (%) (mmHg) Status Level (bpm) 11:08:53 65 16 98 0 109/71(101) NSR 0 (11) 10(A) , No pain 11:13:01 66 14 98 28 124/74(82) NSR 0 (11) 10(A) , No pain 11:17:13 68 10 100 22.7 109/70(97) NSR 0 (11) 9(A) , No pain 11:21:21 71 12 99 27.2 120/70(96) NSR 0 (11) 9(A) , No pain 11:25:35 71 14 99 27.2 121/68(102) NSR 0 (11) 9(A) , No pain 11:29:49 73 15 99 32.5 114/68(104) NSR 0 (11) 10(A) , No pain 11:33:59 69 14 99 31.8 108/68(88) NSR 0 (11) 10(A) , No pain Medications Time Medication Route Dose Verified Delivered Reason Notes Effectiveness by by 11:11:16 Oxygen etCO2 2 Phill Valadez used for Nasal l/min Marga Ellis childhood development teacher cannula 11:11:24 Lidocaine 2% added 20ml Phill Pollock for local to vial Marga Gresham MD anesthetic field 11:11:30 Heparin Flush added 2 Phill Pollock used for Bag to bags Marga Gresham MD procedure (1000units/500ml field NS) 11:11:39 0.9% NaCl I.V. 100 Phill Valadez Per physician ml/hr Marga Ellis RN 11:14:46 Versed I.V. 1 mg Phill Estrellaie for sedation Marga Ellis RN 11:14:52 Fentanyl I.V. 50 Phill Estrellaie for sedation mcg Marga Ellis RN 11:17:10 Versed I.V. 1 mg Phill Estrellaie for sedation Marga Ellis RN 11:17:14 Fentanyl I.V. 50 Phill Valadez for sedation mcg Marga Ellis RN 11:28:30 Heparin Bolus I.V. 4000 Phill Valadez for verif ied units Marga Ellis RN anticoagulation with dr gresham Procedure Log Time Note 10:51:37 Allyson Ellis RN sent for patient. Start room use. 10:51:38 Time tracking: Regular hours (M-F 7:00 - 5:00) 10:51:42 Plan of Care:Hemodynamics will remain stable., Cardiac rhythm will remain stable., Comfort level will be maintained., Respiratory function will remain adequate., Patient/ family verbilizes understanding of procedure., Procedure tolerated without complication., Recovers from procedure without complications.. 11:01:14 Patient received from PCU to CCL 1 Alert and oriented. Tansferred to table in Supine position. 11:01:15 Warm blankets applied, and marlee hugger turned on for patient comfort. 11:01:16 Correct patient and procedure confirmed by team. 11:01:17 Signed procedure consent form obtained from patient. 11:01:18 ECG and BP/O2 sat monitors applied to patient. 11:01:19 Full Disclosure recording started 11:07:50 Vital chart was started 11:07:54 Rhythm: sinus rhythm 11:08:56 H&P Date Dictated: 05/22/2018 Within 30 days and on chart.. 11:08:58 Pre-procedure instructions explained to patient. 11:08:58 Pre-op teaching completed and patient verbalized understanding. 11:09:00 Family in patients room. 11:09:01 Patient NPO since Midnight. 11:09:10 Is the patient allergic to Iodine/contrast media? No. 11:09:11 Is patient on blood thinner?Yes 11:09:15 ACC The patient was administered the following blood thiners within the last 24 hours: ACCAspirin, ACCPlavix 11:10:56 Patient diabetic? Yes. 11:11:02 Previous problem with sedation/anesthesia? No ? 11:11:02 Snore? Yes 11:11:03 Sleep apnea? No 11:11:05 Deviated septum? No 11:11:06 Opens mouth fully? Yes 11:11:07 Sticks out tongue? Yes 11:11:12 Airway obstruction? Yes COPD 11:11:16 Oxygen 2 l/min etCO2 Nasal cannula was administered by Allyson Ellis RN; used for procedure; 11:11:17 Dentures? Yes OUT 11:11:24 Lidocaine 2% 20ml vial added to field was administered by Phill Gresham MD; for local anesthetic; 11:11:28 Pre procedure: right dorsailis pedis pulse 2+ Normal; easily identifiable; not easily obliterated 11:11:30 Heparin Flush Bag (1000units/500ml NS) 2 bags added to field was administered by Phill Gresham MD; used for procedure; 11:11:31 Patient pain scale 0/10 ?. 11:11:37 IV patent on arrival in left forearm with 0.9% NaCl at [facility]. 11:11:39 0.9% NaCl 100 ml/hr I.V. was administered by Allyson Ellis RN; Per physician; 11:11:39 Lab results completed and on chart. 11:11:44 Right groin area was prepped with chlora-prep and draped in sterile fashion 11:11:44 Alarms reviewed by R. N. 11:11:45 Sharps counted by scrub and verified by R.N. 11:11:49 Use device set Femoral Dx 11:11:50 ACIST Syringe (69695) opened to sterile field. 11:11:50 Bag Decanter (2002) opened to sterile field. 11:11:51 Medline Cath Pack ([id number]) opened to sterile field. 11:11:51 DIAGNOSTIC WIRE .035 260cm J wire (226869) opened to sterile field. 11:11:54 ACIST Hand Control (58760) opened to sterile field. 11:11:55 ACIST Manifold (29183) opened to sterile field. 11:11:55 DIAGNOSTIC Multipack 5Fr catheter set (OG7014) opened to sterile field. 11:11:56 Tegaderm 4 x 4 (1626W) opened to sterile field. 11:11:59 SHEATH 5FR Glenwood (ABR353) opened to sterile field. 11:13:53 Final Timeout: patient, procedure, and site verified with staff and physician. All members of the team are in agreement. 11:13:56 Right groin site verified by team. 11:13:59 Maximum allowable Isovue 300 dose 300ml. Physician notified. (300ml for normal creatinines. For patients with creatinine of 1.7 or higher multiply weight(kg) x 5 divided by creatinine.) 11:14:02 Fire Safety Assessment: A--An alcohol-based skin anteseptic being used preoperatively., C--Open oxygen or nitrous oxide is being used., D--An ESU, laser, or fiber-optic light is being used. 11:14:05 Physical assessment completed. ASA score P 2 - A patient with mild systemic disease as per Phill Gresham MD. 11:14:09 Sedation plan: IV Moderate Sedation Medication:Versed, Fentanyl 11:14:46 Versed 1 mg I.V. was administered by Allyson Ellis RN; for sedation; 11:14:52 Fentanyl 50 mcg I.V. was administered by Allyson Ellis RN; for sedation; 11:15:00 Procedure started. 11:15:15 Local anesthetic to right femoral artery with Lidocaine 2% by Phill Gresham MD.INITIAL ACCESS ONLY 11:15:40 A 5 Fr sheath was inserted into the Right Femoral artery 11:16:31 Zero performed for pressure channel P1 11:16:59 A MULTIPACK Pigtail 5 Fr catheter was advanced over the wire and used for LV Angiography. 11:17:10 Versed 1 mg I.V. was administered by Allyson Ellis RN; for sedation; 11:17:14 Fentanyl 50 mcg I.V. was administered by Allyson Ellis RN; for sedation; 11:17:14 Baseline sample Acquired. 11:17:25 LV gram done using BURR 11:17:28 Injector settings: Ml/sec: 10, Volume: 20, 11:17:33 EF : 40 % 11:17:35 Catheter removed. 11:17:51 A MULTIPACK JL 4.0 5Fr catheter was advanced over the wire and used for Left Coronary Angiography. 11:18:29 Catheter removed. 11:19:46 A MULTIPACK 3DRC 5Fr catheter was advanced over the wire and used for Internal mammary arteriography. TO LAD OCCLUDED 11:19:48 Catheter removed. 11:20:23 A DIAGNOSTIC AR2 MOD 5 Fr catheter ([id number]) was advanced over the wire and used for SVG Angiography.TO CIRC 11:21:03 A DIAGNOSTIC AR2 MOD 5 Fr catheter ([id number]) was advanced over the wire and used for SVG Angiography.TO LAD 11:23:36 Sheath upsized to a 6 Fr Short. 11:23:47 6 Fr AR 2.0 guide catheter was inserted over the wire 11:24:27 CHOICE PT ES wire advanced. 11:24:53 IVUS catheter advanced over wire. 11:27:07 IVUS TO SVG AND [place] CIRC 11:27:09 IVUS catheter removed over wire. 11:27:23 Use device set MARGA PCI 11:27:26 SHEATH 6FR Glenwood (ZVB440) opened to sterile field. 11:27:29 INFLATOR Merit BasixCompak (BE0052) opened to sterile field. 11:27:32 GRAPHIX 182cm guide wire ([id number]) opened to sterile field. 11:27:38 GUIDE 6FR AR 2.0 catheter ([id number]) opened to sterile field. 11:27:45 Rutland [place] Eagley[place] IVUS Catheter (84125I) opened to sterile field. 11:28:30 Heparin Bolus 4000 units I.V. was administered by Allyson Ellis RN; for anticoagulation; verified with dr gresham 11:29:01 Place stent Inflation Number: 1 A INTEGRITY RX 3.0 x 15 stent ([id number]) was prepped and advanced across the Prox CX. The stent was deployed at 11 ROGER for 0:02 (min:sec). 11:29:08 Stent catheter was removed intact over wire. 11:29:09 Wire removed. 11:29:09 Guide catheter removed. 11:29:18 Sheath removed intact; hemostasis achieved with Exoseal to the Right Femoral artery. 11:29:20 Procedure ended.(Physican Out) :29:32 Fluoroscopy time 04.10 minutes. 11:29:36 Fluoroscopy dose: 657 mGy 11:29:36 Flurop Dose total: 657 11:29:55 Contrast amount:Isovue 300 113ml. 11:29:56 Sharps counted by scrub and verified by R.N. 11:30:33 Insertion/operative site no bleeding no hematoma. 11:30:37 Post-op/insertion site Right Femoral artery dressed using a 4 x 4 and Tegaderm. 11:30:40 Post right femoral artery:stable, clean and dry 11:30:42 Post Procedure Pulses reassessed and unchanged 11:30:43 Post-procedure physical assessment completed. ASA score P 2 - A patient with mild systemic disease as per Phill Gresham MD. 11:30:45 Post procedure rhythm: unchanged. 11:30:48 Estimated blood loss: 10 ml 11:30:49 Post procedure instruction explained to patient.Patient verbalizes understanding. 11:30:49 Patient needs reinforcement of post procedure teaching. 11:31:11 Procedure type changed to Cath procedure, Diagnostic procedure, LHC, LHC w/Coronaries, FFR/IVUS, Intra-Coronary IVUS Initial, PCI procedure, AMI/SVG/GRAIN BROKER AND MARKET OPERATOR PTCA or Stent, SVG-BMS/IRON Initial 11:31:27 See physician's report for complete and final results. 11:34:57 EXOSEAL 6Fr (EX600) opened to sterile field. 11:35:13 Procedure and supply charges have been captured, reviewed, submitted and are correct. 11:35:16 Procedure Complication : No complications 11:35:19 Vital chart was stopped 11:35:21 Report given to Pre/Post Procedure Room. 11:35:24 Patient transfered to Pre/Post Procedure Room with Stretcher. 11:35:29 Procedure ended. 11:35:29 Full Disclosure recording stopped 11:35:33 End room use (Document Last) Intervention Summary Intervention Notes Time ActionType Lesion and Equipment Action# Pressure Duration Attributes Used 11:29:01 Place stent Prox CX INTEGRITY RX 1 11 00:03 3.0 x 15 stent ([id number]) Device Usage Item Name Manufacture Quantity Catalog Number Hospital Part Current Mini mal Lot# / Charge Number Stock Stock Serial# Code ACIST Acist 1 88224 [id number] 882529 039012 20 Flamsred (73525) Alethia [employer] Bag Decanter Microtek 1 027774 86786 258270 5 () Medical Inc. Medline Cath Medline 1 [id number] 096663 22714 428748 5 Pack ([id number]) DIAGNOSTIC St Yazan 1 612655 217602 483582 988142 30 WIRE .035 260cm J wire (446165) ACIST Hand Acist 1 85822 565274 313841 504211 5 Control Medical (96328) Systems Inc ACIST Acist 1 73088 868836 008675 290964 5 Manifold Medical (99079) Systems Inc DIAGNOSTIC Cardinal 1 ZO5964 154497 49557 003057 30 Multipack Health 5Fr catheter set (PE4575) Tegaderm 4 x 3M 1 1626W 733002 368204 370776 5 4 (1626W) SHEATH 5FR Terumo 1 LVT893 072161 068698 591771 5 Glenwood (QEG534) MULTIPACK Cardinal 1 730617 5 Pigtail 5 Fr Health catheter MULTIPACK JL Cardinal 1 178956 5 4.0 5Fr Health catheter MULTIPACK Cardinal 1 833609 5 3DRC 5Fr Health catheter DIAGNOSTIC Cardinal 1 [id number] 192959 744426 253000 20 AR2 MOD 5 Fr Health catheter (454902R) SHEATH 6FR Terumo 1 CGD726 012625 892080 641412 40 Glenwood (CDE788) INFLATOR Merit 1 CU4576 976065 039275 713725 15 [facility] BasixCompak (OG0882) GRAPHIX Barton 1 [id number] 132591 974987 360246 5 182cm guide Scientific wire ([id number]) GUIDE 6FR AR Medtronic 1 BE0HG40 511743 65045 363493 1 2.0 catheter (VD7JD26) Rutland Rutland 1 [id number] 834050 449935 858994 8 [place] IVUS Catheter (61784B) INTEGRITY RX Medtronic 1 [id number] 440275 407688 386069 5 [id number] 3.0 x 15 stent ([id number]) EXOSEAL 6Fr Cardinal 1 EX600 528172 962618 704314 10 (EX600) Health Signature Audit [place] Stage Time Signature Unsigned Intra-Procedure 05/22/2018 Anca 11:35:44 AM Counts RT(R) Signatures Monitor : Anca Signature : Counts RT Date : Time : [address] [place] [address]
--- NOTE | ~2018-05-21 | DS ---
PATIENT:LETICIA LAMB :54 MEDICAL RECORD: [id number] DISCHARGE SUMMARY ADMISSION DATE: 05/21/18 DISCHARGE DATE: 05/22/18 DATE OF DISCHARGE: 05/22/2018. DIAGNOSES: 1. Angina. 2. Percutaneous transluminal coronary angioplasty stent of left circumflex this admission. 3. Paroxysmal atrial fibrillation. 4. Hypertension. 5. Hyperlipidemia. HOSPITAL COURSE: Mr. Lamb presents with anginal symptomatology and new onset atrial fibrillation. He converted pharmacologically from atrial fibrillation to sinus rhythm, underwent cardiac catheterization revealing significant disease of the circumflex after the patent vein graft, underwent successful PTCA stent of this territory, was discharged home with no change in his medications as he is already on aspirin and Plavix. Follow up with [facility] in 1 month. TRANSINT:[id number] Voice Confirmation ID: [id number] DOCUMENT ID: [id number] MICHAEL FONSECA MD CC: [id number] DICTATION DATE: 05/22/18 1132 PAPER TWISTER: 05/23/18 0333 DIS IN 05/22/18 [facility] [address] [place] [id number]
--- NOTE | ~2018-05-21 | OP ---
PATIENT NAME: LETICIA LAMB MEDICAL RECORD: [id number] :54 LOCATION:D.M2 D.2114 ADMISSION DATE:05/21/18 SURGEON: MICHEAL FONSECA MD DATE OF OPERATION: 05/22/2018 PROCEDURES: 1. PTCA and stent, left circumflex through patent saphenous vein graft. 2. Vein graft angiography. 3. LEE angiography. 4. Intravascular ultrasound of vein graft to the circumflex and intravascular ultrasound of left circumflex. 5 Left heart catheterization. 5. Selective coronary angiography. 6. Vein graft angiography. 7. LEE angiography. INDICATION: Angina and coronary artery disease. PROCEDURE IN DETAIL: After informed consent was obtained and after a detailed description of the risks, benefits as well as alternative therapies, the patient elected to proceed with angiogram and angioplasty. The right femoral area was prepped and draped in normal sterile fashion. Right femoral artery was cannulated via modified Seldinger technique with placement of 6-Azerbaijani sheath. All catheters exchanged through the sheath. FINDINGS: The left ventriculogram was performed in standard 30-degree BURR view, reveals inferobasal hypokinesis, ejection fraction 35% to 40%. SELECTIVE CORONARY ANGIOGRAPHY: 1. Left main is with no significant angiographic disease. 2. Left anterior descending is totally occluded. 3. Left circumflex is totally occluded. 4. Right coronary is totally occluded. 5. LEE to the LAD is not grafted. 6. Vein graft to the LAD is patent. Distal LAD is patent. 7. Vein graft to the circumflex is patent. Intravascular ultrasound reveals there is no significant disease of the vein graft itself, but the circumflex has greater than 75% stenosis confirmed by intravascular ultrasound just after the anastomosis. PTCA AND STENT OF THE LEFT CIRCUMFLEX THROUGH THE PATENT VEIN GRAFT: The stent used was a 3.0 x 15 mm Integrity. Result was 0% residual stenosis. OVERALL IMPRESSION: Successful PTCA and stent of the left circumflex through the patent vein graft going from 75% initial stenosis to 0% residual. TRANSINT:[id number] Voice Confirmation ID: [id number] DOCUMENT ID: [id number] OPERATIVE REPORT [id number] ZAINAB,MICHAEL PATHAK MD CC: [id number] DICTATION DATE: 05/22/18 1135 BENZOL STILL OPERATOR: 05/22/18 1248 ADM IN [place] [address] [place] [address]
[2018-05-21] MEDS ORDERED: XARELTO15 MG PO (01:19)
[2018-05-21 01:46] LABS: BASOPHILS 0.6 % (0-2); HEMATOCRIT 42.6 % (42.0-54.0); HEMOGLOBIN 14.7 g/dL (13.5-17.5); IMMATURE GRANULOCYTES 0.4 % (0-5); LYMPHOCYTES 35.4 % (15-50); MCH 32.4 pg (26.0-34.0); MCHC 34.5 g/dL (31.0-37.0); MCV 93.8 fL (80.0-100.0); MEAN PLATELET VOLUME 12.4 fL (7.4-10.4); MONOCYTES 10.9 % (2-11); NEUTROPHILS 50.7 % (40-80); PLATELET COUNT 185 10x3/uL (130-400); RBC 4.54 10x6/uL (4.20-6.10); RDW 13.7 % (11.5-14.5); WBC 8.4 10x3/uL (4.8-10.8)
--- NOTE | 2018-05-21 01:57 | NUR ---
PT RESTING ON BED, PT DENIES KOCH AT THIS TIME.
[2018-05-21 03:00] LABS: INR 1.96 (0.85-1.17); PROTIME 21.7 SECONDS (11.6-15.0)
[2018-05-21 03:01] LABS: APTT 42.9 SECONDS (22.8-39.4)
[2018-05-21 03:04] LABS: ALBUMIN 3.9 g/dL (3.4-5.0); ALKALINE PHOSPHATASE 101 U/L (46-116); ALT (SGPT) 28 U/L (10-68); CALC OSMOLALITY 293 mosm/kg (275-300); CALCIUM 9.9 mg/dL (8.5-10.1); CARBON DIOXIDE 22.9 mmol/L (21.0-32.0); CHLORIDE - SERUM 102 mmol/L (98-107); CREATININE - SERUM 1.3 mg/dL (0.6-1.3); GLUCOSE 324 mg/dL (74-106); POTASSIUM - SERUM 4.9 mmol/L (3.5-5.1); PROTEIN - SERUM 7.7 g/dL (6.4-8.2); SODIUM 138 mmol/L (136-145); UREA NITROGEN 26 mg/dL (7-18); eGFR NON AFRICAN AMERICAN 59 mL/min (90-120)
[2018-05-21 03:14] LABS: CKMB 0.9 U/L (0.0-3.6); CREATINE KINASE 81 UL (21-232); MAGNESIUM - SERUM 1.8 mg/dL (1.8-2.4); TROPONIN-I 0.019 ng/mL (0.000-0.060)
--- NOTE | 2018-05-21 03:32 | NUR ---
PT RESTING ON BED, EYES CLOSED. VS WNL.
--- NOTE | 2018-05-21 05:22 | NUR ---
ADMIT TO ROOM 2114 FROM ER. ALERT/ORIENTED AND AMBULATORY. IVF NS @ 50ML/HR INFUSING TO LFA. ADMISSION ASSESSMENT/VS/HISTORY AND HOME MEDS REVIEWED AND UPDATED. TELEMETRY INITIATED, 90 CAF.
--- NOTE | 2018-05-21 07:30 | NUR ---
RECEIVED PT IN BED AAOX4 RESP UNLABORED DENIES ANY DISCOMFORT OR NEEDS AT THIS TIME
--- NOTE | 2018-05-21 13:47 | NUR ---
REFUSES SCDS UP AD TESSIE
--- NOTE | 2018-05-21 16:24 | NUR ---
VISITING WITH FAMILY DENIES ANY NEEDS OR DISCOMFORT
--- NOTE | 2018-05-21 20:15 | NUR ---
INITIAL ROUNDS AND ASSESSMENT COMPLETED. PT RESTING IN BED WITH NO DISTRESS. NS @ 50ML/HR INFUSING. O2 @ 2L/NC. SR PER TELEMETRY. MONITOR AND CPOC.
--- NOTE | 2018-05-21 21:16 | NUR ---
BEDTIME MED GIVEN. PT RESTING. NPO AFTER MIDNIGHT.
--- NOTE | 2018-05-21 21:54 | NUR ---
BEDTIME MEDS GIVEN. PT RESTING. NO PAIN OR DISCOMFORT. NPO AFTER MIDNIGHT.
[2018-05-22 04:53] VITALS: BP 101/59
[2018-05-22 05:59] LABS: BASOPHILS 0.3 % (0-2); HEMATOCRIT 42.1 % (42.0-54.0); HEMOGLOBIN 14.2 g/dL (13.5-17.5); IMMATURE GRANULOCYTES 0.1 % (0-5); LYMPHOCYTES 31.3 % (15-50); MCH 31.9 pg (26.0-34.0); MCHC 33.7 g/dL (31.0-37.0); MCV 94.6 fL (80.0-100.0); MEAN PLATELET VOLUME 12.6 fL (7.4-10.4); MONOCYTES 10.1 % (2-11); NEUTROPHILS 55.2 % (40-80); PLATELET COUNT 174 10x3/uL (130-400); RBC 4.45 10x6/uL (4.20-6.10); RDW 13.5 % (11.5-14.5); WBC 6.7 10x3/uL (4.8-10.8)
[2018-05-22 06:39] LABS: ANION GAP 15.3 mmol/L (8-16); CREATININE - SERUM 1.1 mg/dL (0.6-1.3); POTASSIUM - SERUM 4.3 mmol/L (3.5-5.1)
[2018-05-22 08:50] VITALS: BP 113/69
--- NOTE | 2018-05-22 10:54 | HP ---
PATIENT: LETICIA LAMB MEDICAL RECORD: [id number] ACCOUNT: [id number] LOCATION:[address] : [birth year] ADMISSION DATE: 05/21/18 PCP: HELEN BAUER DO HISTORY AND PHYSICAL EXAMINATION DIAGNOSES: 1. Angina. 2. Coronary artery disease. 3. Previous percutaneous transluminal coronary angioplasty stent. 4. Atrial fibrillation. 5. Chronic obstructive pulmonary disease. 6. Smoking history. 7. Hyperlipidemia. 8. Shortness of breath, dyspnea on exertion. HISTORY OF PRESENT ILLNESS: Mr. Lamb presents with anginal chest discomfort as well as shortness of breath, dyspnea on exertion, found to be back in atrial fibrillation, last cardioversion was in March. He has a history of coronary artery disease. Last cardiac stent was in February. His symptomatology has been going on for 2 days. PHYSICAL EXAMINATION: GENERAL APPEARANCE: Well-nourished, well-developed, appears stated age. Level of distress, comfortable. PSYCHIATRIC: Mental status, alert, normal affect. Orientation, oriented to time, place and person. EYES: Lids and conjunctiva, noninjected. No discharge, no pallor. ENT: Lips, teeth, gums, normal dentition. Oropharynx, no cyanosis, no pallor. NECK: Carotid arteries, bilateral normal upstroke, no bruits, no thrills. JUGULAR VEINS: No jugular venous pressure or distention. CERVICAL LYMPH NODES: Nontender, nonenlarged. THYROID: Not enlarged. Nontender. No nodules. LUNGS: Respiratory effort, unlabored. CHEST: Normal curvature. No thoracic deformity. No chest wall tenderness. Percussion, resonant. Auscultation, clear. No wheezes, no rales, no rhonchi. CARDIOVASCULAR: Precordial exam, nondisplaced. No heaves or pericardial thrills. Rate and rhythm, regular. Heart sounds, normal S1, normal S2. No S3, no gallop, no rub. Systolic murmur, not heard. Diastolic murmur, not heard. EXTREMITIES: No cyanosis, no edema. Peripheral pulses, full and equal in all extremities, except as noted. No bruits appreciated. ABDOMEN: Soft, nondistended. Normal aorta. No bruit. Nontender. No masses. Liver, nontender, no hepatomegaly. Spleen, nontender, no splenomegaly. MUSCULOSKELETAL: No joint tenderness. No joint swelling. No erythema. NEUROLOGICAL: Normal gait, normal strength, normal tone. SKIN: Warm and dry. OVERALL IMPRESSION: Chest pain compatible with angina, recurrent atrial fibrillation. At this time, we will proceed with coronary angiography as well as DC cardioversion. Further care depends upon the findings of these studies. TRANSINT:[id number] Voice Confirmation ID: [id number] DOCUMENT ID: [id number] HISTORY AND PHYSICAL [id number] LETICIA LAMB, MICHAEL VICTOR at 1054 CC: [id number] DICTATION DATE: 05/21/18 1225 DIRECTOR OF PHYSIOTHERAPY SERVICES: 05/21/18 1240 ADM [address] [place] [id number] [place] [id number]
--- NOTE | 2018-05-22 10:55 | NUR ---
PRE-OPS GIVEN. TO ENDLESS TRACK VEHICLE MECHANIC BY BED.
--- NOTE | 2018-05-22 11:51 | NUR ---
BACK FROM LEATHER DRIER. VS WNL. RIGHT GROIN STABLE WITHOUT HEMATOMA NOTED. WILL MONITOR.
--- NOTE | 2018-05-22 12:02 | MORECARE ---
CASE MANAGEMENT DISCHARGE SUMMARY PATIENT: LETICIA LAMB UNIT: [id number] ADM DATE: 05/21/18 AGE: 67 : [birth year] SEX: M ROOM/BED: D.2114 AUTHOR: ALEJANDRO SANCHEZ PHYSICIAN: REFERRING PHYSICIAN: MICHAEL FONSECA MD DATE OF SERVICE: 05/22/18 Discharge Plan Patient Name: LETICIA LAMB [facility] [facility] 1950 Planned Disposition: Home Anticipated Discharge Date: 05/22/18 Discharge Date: Expected LOS: 1 Initial Reviewer: [email or web address] Initial Review Date: 05/22/2018 Generated: 05/22/18 1:01 pm Patient Name: LETICIA LAMB Page [phone] at 1202 All edits/amendments must be made on the electronic document DICTATION DATE: 05/22/18 1201 CARPENTER LABOR SUPERVISOR: BOB 05/22/18 1201 RPT#: [id number] DC DATE: STATUS: ADM IN [facility] [address] [place] [address] END OF REPORT
--- NOTE | 2018-05-22 15:30 | NUR ---
BED REST UP. GROIN STABLE.
--- NOTE | 2018-05-22 15:36 | NUR ---
IV AND TELEMETRY DCD. DC PLANS GIVEN. UNDERSTANDING VOICED.
--- NOTE | 2018-05-22 15:55 | NUR ---
ESCORTED TO CAR BY W/C.
== END 2018-05-22 15:55 | disposition home or self-care (01) ==
LOC: D.ER 01:12 → OBSVTIME 04:20 → D.M2 04:20
PROVIDERS: Family Medicine; ADMIT Internal Medicine Interventional Cardiology; ATTEND Internal Medicine Interventional Cardiology
DX: I25.119 Atherosclerotic heart disease of native coronary artery with unspecified angina pectoris (principal); I48.0 Paroxysmal atrial fibrillation; I10 Essential (primary) hypertension; E78.5 Hyperlipidemia, unspecified

== ENCOUNTER 2018-06-13 01:07 | Emergency (ER) | payer MEDICARE, MEDICAID ==
[2018-05-21 05:40] VITALS: Ht 172.7 cm; Wt 95.5 kg
[~2018-06-13] VITALS: Ht 172.7 cm; Wt 95.5 kg
[~2018-06-13 01:07] MED LIST changes: +XARELTO15 MG PO
[2018-06-13] MEDS ORDERED: ASMANEX0.24 GM INH (01:26)
[2018-06-13 01:56] LABS: HEMATOCRIT 39.5 % (42.0-54.0); LYMPHOCYTES 32.7 % (15-50); MCH 33.3 pg (26.0-34.0); MCHC 35.4 g/dL (31.0-37.0); MEAN PLATELET VOLUME 12.1 fL (7.4-10.4); NEUTROPHILS 57.7 % (40-80); PLATELET COUNT 160 10x3/uL (130-400); RDW 12.9 % (11.5-14.5); WBC 6.9 10x3/uL (4.8-10.8)
[2018-06-13 01:59] LABS: APPEARANCE HAZY (CLEAR); BACTERIA NONE SEEN /hpf (NONE SEEN); BILIRUBIN NEGATIVE (NEGATIVE); COLOR YELLOW (YELLOW); EPITHELIAL CELLS RARE /hpf (0-5); GLUCOSE 1000 mg/dL (NEGATIVE); KETONE NEGATIVE (NEGATIVE); NITRITE NEGATIVE (NEGATIVE); PH 6.5 (5.0-6.0); PROTEIN NEGATIVE (NEGATIVE); RED CELLS - URINE >50 /hpf (0-5); SPECIFIC GRAVITY 1.015 (1.005-1.020); UROBILINOGEN NORMAL (NORMAL); WHITE CELLS - URINE RARE /hpf (0-5)
[2018-06-13 02:00] LABS: INR 1.72 (0.85-1.17); PROTIME 19.6 SECONDS (11.6-15.0)
[2018-06-13 02:01] LABS: APTT 38.9 SECONDS (22.8-39.4)
[2018-06-13 02:04] LABS: ALBUMIN 3.7 g/dL (3.4-5.0); ANION GAP 13.6 mmol/L (8-16); BILIRUBIN - TOTAL 0.38 mg/dL (0.2-1.3); CALCIUM 9.1 mg/dL (8.5-10.1); CARBON DIOXIDE 28.9 mmol/L (21.0-32.0); CREATININE - SERUM 1.2 mg/dL (0.6-1.3); POTASSIUM - SERUM 4.5 mmol/L (3.5-5.1)
[2018-06-13 02:06] LABS: PROTEIN - SERUM 7.4 g/dL (6.4-8.2)
[2018-06-13 02:30] VITALS: BP 108/65
== END 2018-06-13 02:30 | disposition home or self-care (01) ==
LOC: D.ER 01:07
PROVIDERS: Family Medicine
DX: R31.9 Hematuria, unspecified (principal); I48.91 Unspecified atrial fibrillation; Z79.01 Long term (current) use of anticoagulants

== ENCOUNTER → 2018-08-11 13:32 | Outpatient (CLI) | payer MEDICARE, MEDICAID ==
[2018-06-13 01:22] VITALS: BMI 32.0
[~2018-08-11 13:32] MED LIST changes: +ASMANEX0.24 GM INH; +FARXIGA10 MG PO; +ISOSORBIDE MONO20 MG PO; -LISINOPRIL10 MG PO; +LISINOPRIL2.5 MG PO; +NEURONTIN 300300 MG PO; -NEURONTIN 400400 MG PO; +PERCOCET 5-3251 TAB PO; +RANEXA1000 MG PO; -RANEXA500 MG PO; -XARELTO15 MG PO; +XARELTO20 MG PO
--- NOTE | 2018-08-15 14:37 | EC ---
PATIENT:LETICIA LAMB DATE OF SERVICE: 08/11/18 SEX: M MEDICAL RECORD: [id number] DATE OF : 54 LOCATION:[facility] AGE OF PATIENT: 67 ADMISSION DATE: 08/11/18 REFERRING PHYSICIAN: INTERPRETING PHYSICIAN: MICHAEL GERSHAM MD ECHOCARDIOGRAM REPORT ECHO CHARGES 4 ECHO COMPLETE Date: 08/11/18 CLINICAL DIAGNOSIS: A-FIB/DIZZINESS/ANGINA H/O CAD/HTN ECHOCARDIOGRAPHIC MEASUREMENTS (adult normal given) AC root (d.<3.7cm) 3.2 cm LV Septum d (<1.2 cm> 1.5 cm Valve Excursion 2.3 cm LV Septum (systole) 1.8 cm Left Atria (s.<4.0cm> 5.0 cm LVPW d(<1.2cm) 1.2 cm RV (d.<2.3cm) 2.9 cm LVPW (sytole) 2.0 cm LV diastole(<5.6CM) 6.9 cm MV E-F(>70mm/sec) cm LV systole 4.6 cm LVOT Diameter 2.2 cm MV exc.(>10mm) cm Est.ejection fraction (50-75%) % DOPPLER: LVIT cm/sec A 81.0 cm/sec E 118 cm/sec LA cm/sec RVSP 23.0 mmHg LVOT 88.0 cm/sec AOP1/2T m/s Asc. Ao 142 cm/sec RVOT 54.0 cm/sec RA cm/sec PA 83.0 cm/sec AV Gradient Peak 8.1 mmHg AV Mean 3.9 mmHg AV Area 2.2 cm MV Gradient Peak 7.1 mmHg MV Mean 2.4 mmHg MV Area cm COMMENTS: OP - HC Hydroelectric Station Operator: 1 ALEJANDRO SHEREE Metal Ceiling Hanger: 1 Dr. Gresham TAPE# PACS Pericardial Effusion N DATE OF SERVICE: 08/11/2018 PROCEDURE: Echocardiogram. FINDINGS: 1. Left ventricular chamber size is mildly dilated. Left ventricular systolic function is moderately reduced, overall ejection fraction in the 35% range. 2. Left atrium is enlarged at 5.0 cm. Right atrium and right ventricular chamber sizes are as well mildly dilated. 3. Valvular structures have normal structure and motion. ECHOCARDIOGRAM REPORT [id number] LETICIA LAMB 4. Doppler interrogation reveals moderate mitral regurgitation, mild tricuspid regurgitation, no other valvular insufficiency or stenosis. Pulmonary systolic pressure is normal estimated at 23 mmHg. 5. No evidence of pericardial effusion or left ventricular thrombus. TRANSINT:[id number] Voice Confirmation ID: [id number] DOCUMENT ID: [id number] MICHAEL GRESHAM MD at 1437 CC: [id number] DICTATION DATE: 08/14/18 1124 RADARMAN: 08/14/18 1155 DEP CLI 08/11/[address] [address]
== END | disposition home or self-care (01) ==
LOC: D.HCCARDIO 13:32
PROVIDERS: ATTEND Internal Medicine Interventional Cardiology
DX: I48.91 Unspecified atrial fibrillation (principal)

== ENCOUNTER 2018-09-02 15:52 | Emergency (ER) | payer MEDICARE, MEDICAID ==
[~2018-09-02] VITALS: Ht 172.7 cm; Wt 95.5 kg
[~2018-09-02 15:52] MED LIST changes: -FARXIGA10 MG PO; -ISOSORBIDE MONO20 MG PO; +LISINOPRIL10 MG PO; -LISINOPRIL2.5 MG PO; -NEURONTIN 300300 MG PO; +NEURONTIN 400400 MG PO; -PERCOCET 5-3251 TAB PO; -RANEXA1000 MG PO; +RANEXA500 MG PO; +XARELTO15 MG PO; -XARELTO20 MG PO
[2018-09-02 15:56] VITALS: Ht 172.7 cm; Wt 95.5 kg
[2018-09-02 16:23] LABS: BASOPHILS 0.2 % (0-2); EOSINOPHILS 2.2 % (0-7); HEMATOCRIT 42.6 % (42.0-54.0); HEMOGLOBIN 14.8 g/dL (13.5-17.5); IMMATURE GRANULOCYTES 0.1 % (0-5); LYMPHOCYTES 25.4 % (15-50); MCHC 34.7 g/dL (31.0-37.0); MCV 94.9 fL (80.0-100.0); MEAN PLATELET VOLUME 11.9 fL (7.4-10.4); MONOCYTES 10.6 % (2-11); NEUTROPHILS 61.5 % (40-80); RBC 4.49 10x6/uL (4.20-6.10); RDW 13.2 % (11.5-14.5); WBC 8.3 10x3/uL (4.8-10.8)
[2018-09-02 16:26] LABS: PLATELET COUNT 199 10x3/uL (130-400)
[2018-09-02 16:51] LABS: ALBUMIN 4.3 g/dL (3.4-5.0); ANION GAP 16.5 mmol/L (8-16); BILIRUBIN - TOTAL 0.39 mg/dL (0.2-1.3); CALCIUM 9.9 mg/dL (8.5-10.1); CARBON DIOXIDE 25.6 mmol/L (21.0-32.0); CREATININE - SERUM 1.7 mg/dL (0.6-1.3); POTASSIUM - SERUM 4.1 mmol/L (3.5-5.1); PROTEIN - SERUM 7.8 g/dL (6.4-8.2)
[2018-09-02 16:57] LABS: APTT 33.9 SECONDS (22.8-39.4); INR 1.4 (0.85-1.17); PROTIME 16.5 SECONDS (11.6-15.0)
[2018-09-02 19:44] LABS: APPEARANCE HAZY (CLEAR); BILIRUBIN NEGATIVE (NEGATIVE); COLOR YELLOW (YELLOW); GLUCOSE 250 mg/dL (NEGATIVE); KETONE NEGATIVE (NEGATIVE); NITRITE NEGATIVE (NEGATIVE); PROTEIN NEGATIVE (NEGATIVE); SPECIFIC GRAVITY 1.015 (1.005-1.020); UROBILINOGEN NORMAL (NORMAL)
[2018-09-02 19:45] LABS: EPITHELIAL CELLS NSEEN /hpf (0-5); RED CELLS - URINE 25-50 /hpf (0-5); WHITE CELLS - URINE NSEEN /hpf (0-5)
[2018-09-02 19:46] LABS: BACTERIA FEW /hpf (NONE SEEN)
[2018-09-02 20:44] VITALS: BP 123/74
== END 2018-09-02 20:44 | disposition home or self-care (01) ==
LOC: D.ER 15:52
PROVIDERS: Emergency Medicine
DX: R31.9 Hematuria, unspecified (principal); I71.4 Abdominal aortic aneurysm, without rupture; Z79.01 Long term (current) use of anticoagulants; J44.9 Chronic obstructive pulmonary disease, unspecified; E11.9 Type 2 diabetes mellitus without complications; Z86.79 Personal history of other diseases of the circulatory system; N28.9 Disorder of kidney and ureter, unspecified

== ENCOUNTER 2018-10-02 07:57 | Inpatient (IN) | payer MEDICARE, MEDICAID ==
[~2018-10-02] VITALS: Ht 172.7 cm; Wt 90.4 kg
[~2018-10-02 07:57] MED LIST changes: -LISINOPRIL10 MG PO; +LISINOPRIL2.5 MG PO; +RANEXA1000 MG PO; -RANEXA500 MG PO; -XARELTO15 MG PO; +XARELTO20 MG PO
[2018-10-02] MEDS ORDERED: PLAVIX75 MG PO (08:25)
[2018-10-02] MEDS ORDERED: FARXIGA10 MG PO (08:28)
[2018-10-02 09:26] LABS: BASOPHILS 0.3 % (0-2); HEMATOCRIT 40.2 % (42.0-54.0); HEMOGLOBIN 14.2 g/dL (13.5-17.5); IMMATURE GRANULOCYTES 0.1 % (0-5); LYMPHOCYTES 22.5 % (15-50); MCH 33.6 pg (26.0-34.0); MCHC 35.3 g/dL (31.0-37.0); MEAN PLATELET VOLUME 11.8 fL (7.4-10.4); MONOCYTES 8.4 % (2-11); NEUTROPHILS 66.7 % (40-80); PLATELET COUNT 172 10x3/uL (130-400); RBC 4.23 10x6/uL (4.20-6.10); RDW 13.6 % (11.5-14.5)
[2018-10-02 09:36] LABS: APPEARANCE CLEAR (CLEAR); APTT 32.9 SECONDS (22.8-39.4); BILIRUBIN NEGATIVE (NEGATIVE); COLOR YELLOW (YELLOW); GLUCOSE 1000 mg/dL (NEGATIVE); INR 1.1 (0.85-1.17); KETONE NEGATIVE (NEGATIVE); NITRITE NEGATIVE (NEGATIVE); PROTEIN NEGATIVE (NEGATIVE); PROTIME 13.7 SECONDS (11.6-15.0); UROBILINOGEN NORMAL (NORMAL)
[2018-10-02 10:06] LABS: ALBUMIN 3.9 g/dL (3.4-5.0); BILIRUBIN - TOTAL 0.46 mg/dL (0.2-1.3); CALCIUM 9.1 mg/dL (8.5-10.1); CARBON DIOXIDE 26.3 mmol/L (21.0-32.0); CREATININE - SERUM 1.3 mg/dL (0.6-1.3); POTASSIUM - SERUM 4.3 mmol/L (3.5-5.1); PROTEIN - SERUM 7.3 g/dL (6.4-8.2)
--- NOTE | 2018-10-02 16:12 | NUR ---
CASTELLANOS NOTE: TEMP 97.9 J1INV23% P72 BP 101/58 RT; BP 96/56 LT. PATIENT REPORTS HAS BEEN TAKING NTG SUB-LINGUAL MULTIPLE TIMES DAILY FOR THE PAST SEVERAL MONTHS FOR CHEST PAIN RELIEF. PATIENT DENIES ANY CURRENT CHEST PAIN. DR. MORALES HERE TO EVALUATE PATIENT. DR. MORALES SPOKE WITH ROBERTH GARCIA RN, REPORTED ABOVE & STATES PATIENT NEEDS TO BE SEEN BY BUS VAN DRIVER PRIOR TO SURGERY. APPOINTMENT SET FOR PATIENT TO SEE DR. FONSECA 10/02/18 AT 3PM. PATIENT INFORMED OF APPOINTMENT & STATES "I WILL BE THERE". EKG FAXED TO DR. FONSECA'S OFFICE.
[2018-10-04] VITALS (33 sets, daily range): BP systolic 91–150; BP diastolic 45–74; BMI 30.6
--- NOTE | 2018-10-04 11:36 | NUR ---
PT ARRIVED IN THE UNIT AND HOOKED TO ICU MONITORS. PT ON 10L VIA SIMPLE MASK. FIRST DEGREE BLOCK NOTED RATE 82. PT A&O X4 BUT DROWSEY. RIGHT CVL NOTED DRESSING C/D/I. RIGHT IV NOTED TO R WRIST. LEFT A LINE NOTED. DRESSING C/D/I. RIGHT GROIN NOTED TO HAVE A DRESSIG C/D/I. LEFT GROIN HAS A SMALL DRESSING C/D/I. BILATERAL GROIN SITES SOFT TO PALPATATION WITH NO BRUISING NOTED. FC NOTED WITH CLEAR, YELLOW URINE. BILATERAL DP AND PT PULSES DOPPERABLE. BLE WARM. PT DENIES NUMBNESS/TINGGILING. VSS CALL LIGHT IN REACH. WILL CONT POC.
--- NOTE | 2018-10-04 13:07 | NUR ---
BILATERAL GROIN SITES SOFT TO PALPATATION. DRESSING C/D/I. BILATERAL DP AND PT PULSES DOPPLERABLE. VSS STABLE. O2 DECREASED TO 2L VIA NC.
--- NOTE | 2018-10-04 13:50 | NUR ---
PT TOLERATING PO ICE CHIPS WELL.
--- NOTE | 2018-10-04 14:12 | NUR ---
PT TOLERATING PO FLUIDS WELL. VSS. WILL CONT POC.
--- NOTE | 2018-10-04 14:40 | NUR ---
PT STATED PAIN WAS 4/10 IN HIS GROIN. PRN PERCOCET GIVEN. SEE MAY.
[2018-10-04 14:53] LABS: PLT FUNCT.(P2Y12) PLAVIX 197 PRU (194-418)
--- NOTE | 2018-10-04 15:17 | NUR ---
SPOKE WITH DR FONSECA NURSE ABOUT CONSULT.
--- NOTE | 2018-10-04 16:29 | NUR ---
PT ASSISTED OOB. PT TOLERATED WELL. VSS. PULSES PALPABLE. WILL CONT POC.
--- NOTE | 2018-10-04 17:14 | NUR ---
MEAL TRAY PROVIED. PT ATE WITH NO ISSUES. PULSES REMAIN DOPPERABLE.WILL CONT POC.
--- NOTE | 2018-10-04 17:26 | NUR ---
PY PULLING OVER 2500 ON HIS IS. EDUCATED TO USE 10X'S/H
--- NOTE | 2018-10-04 17:57 | NUR ---
10 CC REMOVED FROM THE FC BULB AND DC'D WITH NO ISSUES. PATO DC WITH THE CATHETER TIP INTACT. DRESSING APPLIED. WILL CONT POC.
--- NOTE | 2018-10-04 19:40 | NUR ---
REPORT RECEIVED, SHIFT ASSESSMENT COMPLETED PER FLOW SHEET, SEE FOR DETAILS. SITTING UP IN CHAIR. AAOX4. RADIAL PULES PALP, PEDAL PULSES AUDIBLE VIA DOPPLER. DENIES NEEDS AT THIS TIME. CALL LIGHT WITHIN REACH. WILL CONTINUE TO MONITOR.
--- NOTE | 2018-10-04 21:19 | NUR ---
SCHEDULED MEDS GIVEN, WATER PROVIDED. TOLERATED WELL. NO DIFFICUTLY SWALLOWING. WILL CONTINUE TO MONITOR.
--- NOTE | 2018-10-04 23:14 | NUR ---
REASSESSMENT COMPLETED PER FLOW SHEET, SEE FOR DETAILS. NO ACUTE CHANGES NOTED. DENIES NEEDS. CALL LIGHT WITHIN REACH. WILL CONTINUE TO MONITOR.
[2018-10-05] VITALS (13 sets, daily range): BP systolic 93–126; BP diastolic 42–65; Ht 172.7 cm; Wt 90.4 kg
--- NOTE | 2018-10-05 01:00 | NUR ---
RESTING, DENIES PAIN OR NEEDS. WILL CONTINUE TO MONITOR.
--- NOTE | 2018-10-05 03:17 | NUR ---
REASSESSMENT COMPLETED PER FLOW SHEET, SEE FOR DETAILS. NO ACUTE CHANGES NOTED. DENIES NEEDS. CALL LIGHT WITHIN REACH. WILL CONTINUE TO MONITOR.
--- NOTE | 2018-10-05 05:00 | NUR ---
PATIENT BATHED SELF INDEPENDENTLY WITH CHG. COMPLETE BED LINEN CHANGE. SITTING UP IN CHAIR. CALL LIGHT AND BELONGINGS WITHIN REACH. WILL CONTINUE TO MONITOR.
--- NOTE | 2018-10-05 06:00 | NUR ---
RT IJ CVL DRESSING CHANGED USING STERILE TECHNIQUE.
[2018-10-05 06:16] LABS: HEMATOCRIT 35.2 % (42.0-54.0); HEMOGLOBIN 11.9 g/dL (13.5-17.5); MCH 32.3 pg (26.0-34.0); MCHC 33.8 g/dL (31.0-37.0); MCV 95.7 fL (80.0-100.0); MEAN PLATELET VOLUME 11.5 fL (7.4-10.4); RBC 3.68 10x6/uL (4.20-6.10); RDW 13.7 % (11.5-14.5); WBC 10.1 10x3/uL (4.8-10.8)
[2018-10-05 06:33] LABS: CALC OSMOLALITY 278 mosm/kg (275-300); CALCIUM 8.3 mg/dL (8.5-10.1); CARBON DIOXIDE 27.6 mmol/L (21.0-32.0); CHLORIDE - SERUM 103 mmol/L (98-107); CREATININE - SERUM 0.9 mg/dL (0.6-1.3); POTASSIUM - SERUM 4.3 mmol/L (3.5-5.1); SODIUM 138 mmol/L (136-145); UREA NITROGEN 15 mg/dL (7-18); eGFR NON AFRICAN AMERICAN 90 mL/min (90-120)
[2018-10-05 06:34] LABS: GLUCOSE 142 mg/dL (74-106)
--- NOTE | 2018-10-05 07:00 | NUR ---
REPORT RECEVIED FROM THE OFF GOING RN. SEE ASSESSMENT IN THE PTS FLOW SHEET. PT SITTING OOB IN HIS BEDSIDE CHAIR. VSS AT THIS TIME. RA. NSR ON THE MONITORS. CVL NOTED TO RIGHT NECK. DRESSING C/D/I. BILATERAL GROIN SITES C/D/I. SOFT TO PALPATATION. DP AND PT PULSES DOPPLERABLE. PT DENIES PAIN AT THIS TIME. MEAL TRAY PROVIDED FOR THE PT. PT PULLS ABOUT 2500 ON HIS IS. CALL LIGHT IN REACH. WILL CONT POC.
--- NOTE | 2018-10-05 08:04 | NUR ---
DR CANDELARIO AT THE PTS BEDSIDE. DC IV FLUIDS. DC CORDIS AND PHYSCIAL THEARPY CONSULT. PHYSCIAL THERAPY NOTIFIED.
[2018-10-05] MEDS ORDERED: PERCOCET 5-3251 TAB PO (08:42)
--- NOTE | 2018-10-05 10:44 | NUR ---
AMBULATED WITH THE PT UP AND DOWN THE MARTINEZ. NORMAL STEADY GAIT NOTED. PT TOLERATED WELL. WILL CONT POC.
--- NOTE | 2018-10-05 11:17 | OP ---
PATIENT NAME: LETICIA LAMB MEDICAL RECORD: [id number] :54 LOCATION:D.CVI D.CV04 ADMISSION DATE:10/04/18 SURGEON: MANDEEP CANDELARIO MD DATE OF OPERATION: 10/04/2018 SURGEON: Mandeep Candelario MD SCIENTIFIC RESEARCH ASSOCIATE: Nando Correa MD PROCEDURES PERFORMED: 1. Insertion of bifurcated aortic endograft. 2. Insertion of suprarenal extension. 3. Aortic angioplasty. 4. Aortogram times 3. 5. Ultrasound-guided percutaneous access of both femoral arteries. PROCEDURE INDICATION: Abdominal aortic aneurysm. POSTOPERATIVE DIAGNOSIS: Abdominal aortic aneurysm. ANESTHESIA: General endotracheal anesthesia. ESTIMATED BLOOD FLUIDS: 200 cc of Cell Saver retransfusion. COMPLICATIONS: None. SPECIMENS: None. CONDITION: Stable. DISPOSITION: ICU. OPERATIVE FINDINGS: 1. Ultrasound access of both common femoral arteries with a 7-Stateless sheath placed on the left and on the right. Attempted percutaneous placement of ProGlides for later closure was unsuccessful and therefore 8-Stateless sheath was exchanged. Cutdown was performed. A large side branch coming off laterally was noted. It was likely the source of inability to retract the foot pad of the ProGlide and cutdown was performed for right femoral main body access. 2. Good position of the main body at suprarenal. 3. Thin-walled right femoral with moderate disease posteriorly and medially. PROCEDURE INDICATION: Abdominal aortic aneurysm with documented enlargement. PROCEDURE NOTE IN DETAIL: The patient was brought to the operating suite, where general anesthesia was obtained. The patient was prepped and draped. Ultrasound guidance was used to access the left common femoral artery with micropuncture technique. A 7-Stateless sheath was placed and sutured into place. On the right side, again ultrasound guidance was used to access the common femoral artery in the proximal vessel due to previous multiple puncture sites and the vessel was easily accessed. One ProGlide was deployed and left for later closure; but for the lateral one, the foot pad would not retract. Therefore, the ProGlide was removed. A 7-Stateless sheath was placed. Cutdown was performed. A small portion of the inguinal ligament was divided and then retracted for proximal exposure and distal vessel control. Large lateral and OPERATIVE REPORT [id number] LETICIA LAMB medial branches were encircled with Vesseloops. Heparin was given. The sheath was changed to 8-Stateless. Angiogram was performed by pigtail placed from the left side to characterize the anatomy and length. No predilatation was necessary. On the ipsi side the wire was exchanged for the stiff wire. The AFX introducer was placed easily through the right side, and the snare catheter and snare were placed from the left side. Contralateral wire was grasped and we pulled out the contralateral side. The bifurcated device was advanced and placed on the bifurcation. The main body was deployed. Left limb was deployed. Wire was disconnected and the pigtail was placed into the aorta. The right side was deployed. Suprarenal sheath was then placed and angiogram was performed to visualize the anatomy. Good position was noted after placement. Coda balloon was used for aortic angioplasty in 3 sites of overlap and then a final angiogram performed with good control. No endoleak. The access on the right was then closed after removing some debris posteriorly and medially with interrupted sutures. Then, on the left side, an 8 Angio-Seal was placed. Protamine was given. Thorough irrigation of the right groin was performed. Hemostasis was assured. Surgicel was placed. Wound was closed in 3 layers including Dermabond on the skin and the patient, on Doppler, had dorsalis pedis and posterior tibial pulses. Dr. Correa was the tv production assistant. His involvement consisted of utilizing the left access site for snare catheter, deploying the left limb, and Angio-Seal. TRANSINT:[id number] Voice Confirmation ID: [id number] DOCUMENT ID: [id number] MANDEEP CANDELARIO MD at 1117 CC: YANET BOOTHE [id number] DICTATION DATE: 10/04/18 1502 THERMOSPRAY OPERATOR: 10/04/18 1846 ADM IN [facility] [address] [place] [address]
--- NOTE | 2018-10-05 11:17 | NUR ---
DR CANDELARIO AT THE PTS BEDSIDE. OK TO DC HOME WHENEVER ABT TX COMPLETED.
--- NOTE | 2018-10-05 15:28 | NUR ---
DISCHARGE INSTRUCTIONS WENT OVER WITH THE PT. PT DENIES QUESTIONS AT THIS TIME. PT BELONINGS ACCOUNTED FOR. PT LEFT IN A STABLE CONDITION. VSS WHENEVER LEAVING. PT GOT INTO HIS SISTER IN LAWS CAR DRIVEN BY HER.
--- NOTE | 2018-10-05 19:04 | MORECARE ---
CASE MANAGEMENT DISCHARGE SUMMARY PATIENT: LETICIA LAMB UNIT: [id number] ADM DATE: 10/04/18 AGE: 67 : 54 SEX: M ROOM/BED: [facility] AUTHOR: ALEJANDRO SANCHEZ PHYSICIAN: REFERRING PHYSICIAN: ALEENA CANDELARIO MD DATE OF SERVICE: 10/05/18 Discharge Plan Patient Name: LETICIA LAMB [facility] [facility] 1950 Planned Disposition: Home Anticipated Discharge Date: Discharge Date: 10/05/2018 Expected LOS: Initial Reviewer: [email or web address] Initial Review Date: 10/05/2018 Generated: 10/05/18 8:04 pm Patient Name: LETICIA LAMB Page [id number] at 1904 All edits/amendments must be made on the electronic document DICTATION DATE: 10/05/181903 PRODUCT DEVELOPMENT MANAGER: BOB 10/05/181903 RPT#: [id number] DC DATE:10/05/18 STATUS: DIS IN [facility] [address] [facility] [place] [address] END OF REPORT
--- NOTE | 2018-10-05 19:12 | MORECARE ---
CASE MANAGEMENT DISCHARGE SUMMARY PATIENT: LETICIA LAMB UNIT: [id number] ADM DATE: 10/04/18 AGE: 67 : 54 SEX: M ROOM/BED: D[facility] AUTHOR: ALEJANDRO SANCHEZ PHYSICIAN: REFERRING PHYSICIAN: ALEENA CANDELARIO MD DATE OF SERVICE: 10/05/18 Discharge Plan Patient Name: LETICIA LAMB Facility: [facility]:[place] : 1950 Planned Disposition: Home Anticipated Discharge Date: Discharge Date: 10/05/2018 Expected LOS: Initial Reviewer: [email or web address] Initial Review Date: 10/05/2018 Generated: 10/05/18 8:12 pm Comments DCP- Discharge Planning Updated by [email or web address]: Evelin Lopez on 10/05/18 6:[address] LATE ENTRY Patient Name: LETICIA LAMB Admission Status: Elective Accout number: [id number] Admission Date: 10-04-2018 : 1950 Admission Diagnosis: Attending: ALEENA CANDELARIO Current LOS: 1 Anticipated DC Date: Planned Disposition: Home Primary Insurance: [employer] CHO[employer] PPO MCR [employer]VANT Discharge Planning Comments: CM met with patient at bedside after explaining CM role and obtaining verbal consent. Patient lives at home alone and plans to return there upon discharge. Patient feels this would be a safe discharge. CM discussed availability / needs of home health and medical equipment. Patient denies any discharge needs at this time. Patient states he will have his family drive him home upon discharge. CM will continue to follow and assist as needed with discharge planning / needs. Garage Door Service Technician: Evelin Lopez DCPIA - Discharge Planning Initial Assessment Updated by [email or web address]: Evelin Lopez on 10/05/18 7:05 pm * Is the patient Alert and Oriented? Yes * How many steps to enter\exit or inside your home? * PCP [place] * Pharmacy [facility] * Preadmission Environment Home Alone * ADLs Independent * Equipment None * List name and contact numbers for known caregivers / representatives who currently or will assist patient after discharge: SRAVANTHI LAMB - BROTHER - [phone] * Verbal permission to speak to the caregivers and representatives has been obtained from the patient. Yes * Community resources currently utilized None * Additional services required to return to the preadmission environment? No * Can the patient safely return to the preadmission environment? Yes * Has this patient been hospitalized within the prior 30 days at any hospital? No Last DP export: 10/05/18 6:05 p Patient Name: LETICIA LAMB Page [phone] at 1912 All edits/amendments must be made on the electronic document DICTATION DATE: 10/05/181910 AVIATION OPERATIONS SPECIALIST: BOB 10/05/181910 RPT#: [id number] DC DATE:10/05/18 STATUS: DIS IN [facility] [address] [place] [address] END OF REPORT
== END 2018-10-05 15:33 | disposition home or self-care (01) | DRG 269 ==
LOC: D.SDCHOLD 10-04 05:00 → D.CVICU 10-04 05:00 → D.MS 10-04 07:30 → D.CVICU 10-04 09:56
PROVIDERS: Internal Medicine Cardiovascular Disease; ADMIT Thoracic Surgery (Cardiothoracic Vascular Surgery); ATTEND Thoracic Surgery (Cardiothoracic Vascular Surgery)
PROC: 04V03DZ Restriction of Abdominal Aorta with Intraluminal Device, Percutaneous Approach (ICD-10-PCS; principal; 2018-10-04 07:30)
DX: I71.4 Abdominal aortic aneurysm, without rupture (principal); I25.10 Atherosclerotic heart disease of native coronary artery without angina pectoris; I48.91 Unspecified atrial fibrillation; I10 Essential (primary) hypertension; E78.5 Hyperlipidemia, unspecified; F17.200 Nicotine dependence, unspecified, uncomplicated

== ENCOUNTER → 2018-10-24 07:56 | Outpatient (CLI) | payer MEDICARE, MEDICAID ==
[2018-10-05 12:59] VITALS: BMI 30.3
[~2018-10-24 07:56] MED LIST changes: +FARXIGA10 MG PO; +ISOSORBIDE MONO20 MG PO; +NEURONTIN 300300 MG PO; -NEURONTIN 400400 MG PO; +PERCOCET 5-3251 TAB PO
== END | disposition home or self-care (01) ==
LOC: D.CT 07:56
PROVIDERS: ATTEND Thoracic Surgery (Cardiothoracic Vascular Surgery)
DX: I71.4 Abdominal aortic aneurysm, without rupture (principal)

== ENCOUNTER → 2018-10-31 12:10 | Outpatient (CLI) | payer MEDICARE, MEDICAID ==
[2018-10-05 12:59] VITALS: BMI 30.3
== END | disposition home or self-care (01) ==
LOC: D.CT 12:10
PROVIDERS: ATTEND Thoracic Surgery (Cardiothoracic Vascular Surgery)
DX: I71.4 Abdominal aortic aneurysm, without rupture (principal)

== ENCOUNTER 2018-11-03 09:45 | Outpatient (CLI) | payer MEDICARE, MEDICAID ==
[~2018-11-03] VITALS: Ht 172.7 cm; Wt 94.1 kg
--- NOTE | ~2018-11-03 | HEMODYNAMI ---
PATIENT:LETICIA LAMB MEDICAL RECORD: [id number] : 54 [id number] ADMISSION DATE: 11/03/18 Generatedon:11/03/201816:04 Patient name: LETICIA LAMB Patient #: [id number] : 1950 Date of study: 11/03/2018 Page: Of Hemodynamic Procedure Report Patient Data Patient Demographics Procedure consent was obtained First Name: LETICIA Gender: Male Last Name: ZAINAB : 1950 Middle Initial: SRAVANTHI Age: 68 year(s) Patient #: [id number] Race: SSN: [id number] Additional ID: [id number] Contact details Address: [address] [place] [address] ROAD State: [place] City: [place] Zip code: [address] Past Medical History Allergies Allergen Reaction Date Comments Reported Other allergy 04/28/2018 [facility] Admission Admission Data Admission Date: 11/03/2018 Admission Time: 9:45 Admit Source: Emergency Insurance Payor: Private department health insurance [facility] #: [id number] Height (in.): 67.72 BSA: 2.08 (m2) Height (cm.): 172 BMI: 32.11 (kg/m2) Weight (lbs.): 209.44 Weight (kg.): 95 Procedure Procedure Types Cath Procedure Diagnostic Procedure LHC C w/Coronaries w/Grafts FFR/IVUS FFR Initial Sedation Charges Moderate Sedation up to 15 minutes Procedure Description Procedure Date Procedure Date: 11/03/2018 Procedure Start Time: 15:25 Procedure End Time: 15:49 Procedure Staff Name Function Phill Gresham MD Performing Physician Saray Garcia RT Monitor Jon Hassan RT Scrub Susie Sandoval RT Scrub Allyson Ellis RN Nurse Procedure Data Cath Procedure Fluoroscopy Diagnostic fluoroscopy Total fluoroscopy Time: 7.4 time: 7.4 min min Diagnostic fluoroscopy Total fluoroscopy dose: dose: 1002 mGy 1002 mGy Contrast Material Contrast Material Type Amount (ml) Isovue 300 118 Entry Location Entry Primary Successful Side Size Upsize Upsize Entry Closure Succes sful Closure Location (Fr) 1 (Fr) 2 (Fr) Remarks Device Remarks Femoral Right 5 Fr 6 Fr Exoseal artery Short Estimated blood loss: 10 ml Diagnostic catheters Device Type Used For End Catheter Placement MULTIPACK Pigtail 5 Fr Procedure catheter MULTIPACK JL 4.0 5Fr Procedure catheter DIAGNOSTIC AR2 MOD 5 Fr Procedure catheter ([id number]) Procedure Complications No complications Procedure Medications Medication Administration Route Dosage Oxygen etCO2 Nasal cannula 2 l/min Lidocaine 2% added to field 20 Heparin Flush Bag added to field 2 bags (1000units/500ml NS) 0.9% NaCl I.V. 100 ml/hr Versed I.V. 2 mg Fentanyl I.V. 100 mcg Versed I.V. 0.5 mg Fentanyl I.V. 25 mcg Heparin Bolus I.V. 3000 units Hemodynamics Rest BSA: 2.08 (m2) O2 Consumption: Estimated: 242.46 (ml/min) O2 Consumption indexed : Estimated:116.57 (ml/min/m) Heart Rate: 70 (bpm) Snapshots Pre Cath Intra NCS Post Cath Vital Signs Time Heart Resp SPO2 etCO2 NIBP (mmHg) Rhythm Pain Sedation Rate (ipm) (%) (mmHg) Status Level (bpm) 14:56:17 68 21 100 0 125/82(105) NSR 0 (11) 10(A) , No pain 15:00:31 68 18 100 12.7 120/73(103) NSR 0 (11) 10(A) , No pain 15:04:37 66 20 100 13.4 130/90(106) NSR 0 (11) 10(A) , No pain 15:08:51 67 17 95 35.9 141/80(107) NSR 0 (11) 10(A) , No pain 15:13:11 70 10 99 26.9 134/73(101) NSR 0 (11) 10(A) , No pain 15:17:21 71 24 95 29.9 127/78(88) NSR 0 (11) 10(A) , No pain 15:21:35 72 20 98 37.4 130/76(106) NSR 0 (11) 10(A) , No pain 15:25:49 72 14 93 32.2 133/78(111) NSR 0 (11) 9(A) , No pain 15:30:05 74 13 96 29.2 134/75(106) NSR 0 (11) 9(A) , No pain 15:34:23 74 14 94 29.2 120/71(97) NSR 0 (11) 9(A) , No pain 15:38:35 75 28 96 37.4 131/77(94) NSR 0 (11) 9(A) , No pain 15:42:47 76 21 96 31.4 119/73(97) NSR 0 (11) 9(A) , No pain 15:46:57 85 17 94 30.6 122/76(103) NSR 0 (11) 10(A) , No pain Medications Time Medication Route Dose Verified Delivered Reason Notes Effectiveness by by 15:00:59 Oxygen etCO2 2 Phill Buffie used for Nasal l/min Marga Ellis RN procedure cannula 15:01:07 Lidocaine 2% added 20ml Phill Phill for local to vial Marga Gresham MD anesthetic field 15:01:13 Heparin Flush added 2 Phill Phill used for Bag to bags Marga Gresham MD procedure (1000units/500ml field NS) 15:01:23 0.9% NaCl I.V. 100 Phill Buffie Per physician ml/hr Marga Ellis RN 15:21:27 Versed I.V. 2 mg Phill Buffie for sedation Marga Ellis RN 15:21:32 Fentanyl I.V. 100 Phill Buffie for sedation mcg Marga Ellis RN 15:25:42 Versed I.V. 0.5 Phill Buffie for sedation mg Marga Ellis RN 15:25:47 Fentanyl I.V. 25 Phill Buffie for sedation mcg Marga Ellis RN 15:38:20 Heparin Bolus I.V. 3000 Phill Estrellaie for verif ied units Marga Ellis RN anticoagulation with dr gresham. Procedure Log Time Note 14:39:14 Signed procedure consent form obtained from patient. 14:39:18 Procedure Status Urgent Heart Cath (IP). 14:39:19 Time tracking: Regular hours (M-F 7:00 - 5:00) 14:39:23 Plan of Care:Hemodynamics will remain stable., Cardiac rhythm will remain stable., Comfort level will be maintained., Respiratory function will remain adequate., Patient/ family verbilizes understanding of procedure., Procedure tolerated without complication., Recovers from procedure without complications.. 14:47:17 Jon Hassan RT(R) sent for patient. Start room use. 14:50:49 Patient received from ED to CCL 1 Alert and oriented. Tansferred to table in Supine position. 14:50:51 Warm blankets applied, and marlee hugger turned on for patient comfort. 14:50:51 Correct patient and procedure confirmed by team. 14:50:52 ECG and BP/O2 sat monitors applied to patient. 14:55:14 Vital chart was started 14:55:22 H&P Date Dictated: 11/03/2018 Emergent; H&P N/A. 14:55:23 Pre-procedure instructions explained to patient. 14:55:24 Pre-op teaching completed and patient verbalized understanding. 14:55:26 Family unavailable. 14:55:27 Patient NPO since Midnight. 14:55:41 Is the patient allergic to Iodine/contrast media? No. 14:55:43 Is patient on blood thinner?Yes 14:55:46 ACC The patient was administered the following blood thiners within the last 24 hours: ACCPlavix, Xarelto 14:55:48 Patient diabetic? Yes. 14:55:49 If diabetic: On Metformin? No 14:55:51 Previous problem with sedation/anesthesia? No ? 14:55:52 Snore? No 14:55:53 Sleep apnea? No 14:55:54 Deviated septum? No 14:55:55 Opens mouth fully? Yes 14:55:56 Sticks out tongue? Yes 14:55:59 Airway obstruction? Yes COPD 14:56:03 Dentures? No ? 14:56:06 Pre procedure: right dorsailis pedis pulse 1+ Palpable, but thready & weak; easily obliterated 14:56:18 Patient pain scale 5/10 Physician notified.. 14:56:23 IV patent on arrival in left forearm with 0.9% NaCl at O. 14:56:26 Lab results completed and on chart. 14:56:33 Right groin area was prepped with chlora-prep and draped in sterile fashion 14:56:34 Alarms reviewed by R. N. 14:56:34 Sharps counted by scrub and verified by R.N. 14:56:40 Use device set Femoral Dx 14:56:42 Tegaderm 4 x 4 (1626W) opened to sterile field. 14:56:43 ACIST Manifold (16946) opened to sterile field. 14:56:43 ACIST Hand Control (13501) opened to sterile field. 14:56:44 ACIST Syringe (00193) opened to sterile field. 14:56:45 Bag Decanter (2002S) opened to sterile field. 14:56:45 Medline Cath Pack ([id number]) opened to sterile field. 14:56:47 DIAGNOSTIC Multipack 5Fr catheter set (CV9219) opened to sterile field. 14:56:48 SHEATH 5FR [place] (MTI953) opened to sterile field. 14:56:48 EMERALD Guide Wire (306-868) opened to sterile field. 15:00:59 Oxygen 2 l/min etCO2 Nasal cannula was administered by Allyson Ellis RN; used for procedure; 15:01:07 Lidocaine 2% 20ml vial added to field was administered by Phill Gresham MD; for local anesthetic; 15:01:13 Heparin Flush Bag (1000units/500ml NS) 2 bags added to field was administered by Phill Gresham MD; used for procedure; 15:01:23 0.9% NaCl 100 ml/hr I.V. was administered by Allyson Ellis RN; Per physician; 15:12:37 Baseline sample Acquired. 15:18:26 Patient Weight : 209.44 lbs 15:18:33 Patient Height : 67.72 inches 15:19:09 Admit Source: Emergency department 15:19:12 Insurance Payor : Private health insurance 15:19:44 --------ALL STOP TIME OUT------ 15:19:44 Final Timeout: patient, procedure, and site verified with staff and physician. All members of the team are in agreement. 15:19:47 Right groin site verified by team. 15:19:50 Fire Safety Assessment: A--An alcohol-based skin anteseptic being used preoperatively., C--Open oxygen or nitrous oxide is being used., D--An ESU, laser, or fiber-optic light is being used. 15:19:53 Physical assessment completed. ASA score P 2 - A patient with mild systemic disease as per Phill Gresham MD. 15:19:55 2) 60-89 Mildly reduced kidney function, and other findings (as for stage 1) point to kidney disease. 15:19:57 Maximum allowable contrast dose (3.7 X eGFR X 0.75)168 ml. 15:20:00 Sedation plan: IV Moderate Sedation Medication:Versed, Fentanyl 15::07 Zero performed for pressure channel P1 15::27 Versed 2 mg I.V. was administered by Allyson Ellis RN; for sedation; 15::32 Fentanyl 100 mcg I.V. was administered by Allyson Ellis RN; for sedation; 15::17 Procedure started. 15::17 Full Disclosure recording started 15:25:11 Local anesthetic to right femoral artery with Lidocaine 2% by Phill Gresham MD.INITIAL ACCESS ONLY 15:25:42 Versed 0.5 mg I.V. was administered by Allyson Ellis RN; for sedation; 15::47 Fentanyl 25 mcg I.V. was administered by Allyson Ellis RN; for sedation; 15:26:31 AMPLATZ Super Stiff 75cm wire ([id number]) opened to sterile field. 15:26:45 A 5 Fr sheath was inserted into the Right Femoral artery 15::59 AMPLATZ USED TO ADVANCE SHEATH 15:27:04 EMERALD Guide Wire (226-475) opened to sterile field. 15:27:54 A MULTIPACK Pigtail 5 Fr catheter was advanced over the wire and used for Procedure. 15:28:03 LV gram done using BURR 15:28:06 Injector settings: Ml/sec: 10, Volume: 20, 15:29:11 EF : 30 % 15:29:13 Catheter removed. 15:29:28 A MULTIPACK JL 4.0 5Fr catheter was advanced over the wire and used for Procedure. 15:30:17 LCA angiography performed. 15:30:18 Catheter removed. 15:30:55 A DIAGNOSTIC AR2 MOD 5 Fr catheter ([id number]) was advanced over the wire and used for Procedure. 15:32:10 SVG to Diag angiography performed. 15:33:21 SVG to Circ angiography performed. 15:33:32 Catheter removed. 15:34:57 SHEATH 6FR [place] (RVD724) opened to sterile field. 15:34:58 [place] Verrata Plus pressure wire (75511J) opened to sterile field. 15:34:58 GUIDE 6FR AR 2.0 catheter ([id number]) opened to sterile field. 15:35:02 INFLATOR Merit BasixCompak (AB8002) opened to sterile field. 15:35:11 Sheath upsized to a 6 Fr Short. 15:35:57 6 Fr AR 2 guide catheter was inserted over the wire 15:38:03 FFR/IFR wire advanced. 15:38:04 Wire advanced across lesion. 15:38:14 SVG- OM1 lesion measured at .87 with IFR 15:38:20 Heparin Bolus 3000 units I.V. was administered by Allyson Ellis RN; for anticoagulation; verified with dr gresham. 15:41:24 Place stent Inflation Number: 1 A TRISTAN RX 3.0 x 15 stent ([id number]) was prepped and advanced across the Aorta Left -> 1st Ob Nea . The stent was deployed at 11 ROGER for 0:00 (min:sec) . 15:41:50 Stent catheter was removed intact over wire. 15:42:38 Place stent Inflation Number: 2 A TRISTAN RX 3.5 x 15 stent ([id number]) was prepped and advanced across the Aorta Left -> 1st Ob Nae . The stent was deployed at 17 ROGER for 0:00 (min:sec) . 15:43:14 Stent catheter was removed intact over wire. 15:43:15 Wire removed. 15:43:15 Guide catheter removed. 15:43:24 EXOSEAL 6Fr (EX600) opened to sterile field. 15:43:37 ACT drawn and resulted at 258 seconds. (normal therapeutic range 180-240 seconds). 15:43:38 Sheath removed intact; hemostasis achieved with Exoseal to the Right Femoral artery. 15:43:57 Procedure ended.(Physican Out) 15:45:57 Fluoroscopy time 07.40 minutes. 15:46:01 Flurop Dose total: 1002 15:46:01 Fluoroscopy dose: 1002 mGy 15:46:08 Dose Area Product 510426 mGy/cm. 15:46:12 Contrast amount:Isovue 300 118ml. 15:46:14 Maximum allowable dose exceeded? No. 15:46:15 Sharps counted by scrub and verified by R.N. 15:46:21 Post-op/insertion site Right Femoral artery dressed using a 4 x 4 and Tegaderm. 15:46:23 Post-procedure physical assessment completed. ASA score P 2 - A patient with mild systemic disease as per Phill Gresham MD. 15:46:26 Post procedure rhythm: sinus rhythm 15:46:29 Estimated blood loss: 10 ml 15:46:30 Post procedure instruction explained to patient.Patient verbalizes understanding. 15:46:30 Patient needs reinforcement of post procedure teaching. 15:46:55 Procedure type changed to Cath procedure, Diagnostic procedure, LHC, LHC w/Coronaries w/Grafts, FFR/IVUS, FFR Initial, Sedation Charges, Moderate Sedation up to 15 minutes 15:48:44 Procedure and supply charges have been captured, reviewed, submitted and are correct. 15:48:50 Procedure Complication : No complications 15:48:52 Vital chart was stopped 15:48:52 See physician's report for complete and final results. 15:48:54 Report given to [facility]. 15:48:58 Patient transfered to [facility] with Bed. 15:49:00 Procedure ended. 15:49:00 Full Disclosure recording stopped 15:49:04 End room use (Document Last) Intervention Summary Intervention Notes Time ActionType Lesion and Equipment Used Action# Pressure Duration Attributes 15:41:24 Place stent Aorta Left TRISTAN RX 3.0 x 1 11 00:00 -> 1st Ob 15 stent Nae ([id number]) 15:42:38 Place stent Aorta Left TRISTAN RX 3.5 x 2 17 00:00 -> 1st Ob 15 stent Nae ([id number]) Device Usage Item Name Manufacture Quantity Catalog Hospital Part Current Minimal Lot# / Number Charge Number Stock Stock Serial# Code Tegaderm 4 x 4 3M 1 1626W 400187 966880 034497 5 (1626W) ACIST Manifold Acist 1 82972 759656 708783 390012 5 (88199) Medical Systems Inc ACIST Hand Acist 1 10179 980831 642142 140032 5 Control Medical (71142) Systems Inc ACIST Syringe Acist 1 08561 485695 170191 073059 20 (61669) Medical Systems Inc Bag Decanter Microtek 1 2001S 480639 04692 159601 5 (2001S) Medical Inc. Medline Cath Medline 1 [id number] 746311 31679 827969 5 Pack ([id number]) DIAGNOSTIC Cardinal 1 PS7434 936713 82783 500293 30 Multipack 5Fr Health catheter set (KP0486) SHEATH 5FR Terumo 1 YSP410 246636 496009 123361 5 [place] (XOK665) EMERALD Guide Cardinal 2 502-455 446134 064917 467745 5 Wire (502-455) Health AMPLATZ Super [place] 1 [id number] 865635 127609 109067 5 Stiff 75cm Scientific wire ([id number]) MULTIPACK Cardinal 1 999881 5 Pigtail 5 Fr Health catheter MULTIPACK JL Cardinal 1 418956 5 4.0 5Fr Health catheter DIAGNOSTIC AR2 Cardinal 1 [id number] 879863 105598 586658 20 MOD 5 Fr Health catheter (004849F) SHEATH 6FR Terumo 1 QEA968 256740 974005 530261 40 [place] (BEV154) [place]ibaux 1 [id number] 249471 097654360 614255 5 Verrata Plus pressure wire (88679I) GUIDE 6FR AR Medtronic 1 [id number] 500526 88226 878926 1 2.0 catheter (LH8CA87) INFLATOR Merit Merit 1 TU6467 162461 823221 401897 15 BasixComcak Medical (MX9555) TRISTAN RX 3.0 x Medtronic 1 [id number] 194376 5455340 886640 5 [id number] 15 stent ([id number]) TRISTAN RX 3.5 x Medtronic 1 [id number] 787018 7980087 871621 5 [id number] 15 stent ([id number]) EXOSEAL 6Fr Cardinal 1 EX600 503515 134464 400046 10 (EX600) Health Signature Audit Aston Stage Time Signature Unsigned Intra-Procedure 11/03/2018 Saray Garcia 4:04:21 PM RT(R) Signatures Performing Physician : Signature : Phill Gresham MD Date : Time : Monitor : Saray Garcia Signature : RT Date : Time : Nurse : Buffie Ellis RN Signature : Date : Time : [address] [place] [address]
[~2018-11-03 09:45] MED LIST changes: -ISOSORBIDE MONO20 MG PO
[2018-11-03 10:19] LABS: BASOPHILS 0.2 % (0-2); EOSINOPHILS 1.9 % (0-7); HEMATOCRIT 30.4 % (42.0-54.0); HEMOGLOBIN 9.9 g/dL (13.5-17.5); IMMATURE GRANULOCYTES 0.2 % (0-5); LYMPHOCYTES 18.6 % (15-50); MCH 32.2 pg (26.0-34.0); MCHC 32.6 g/dL (31.0-37.0); MEAN PLATELET VOLUME 10.9 fL (7.4-10.4); MONOCYTES 7.1 % (2-11); RBC 3.07 10x6/uL (4.20-6.10); RDW 15.4 % (11.5-14.5); WBC 5.8 10x3/uL (4.8-10.8)
[2018-11-03 10:20] LABS: PLATELET COUNT 210 10x3/uL (130-400)
[2018-11-03 10:29] LABS: INR 1.65 (0.85-1.17); PROTIME 18.9 SECONDS (11.6-15.0)
[2018-11-03 10:30] LABS: APTT 38.8 SECONDS (22.8-39.4)
[2018-11-03 10:32] LABS: ALBUMIN 3.7 g/dL (3.4-5.0); ALKALINE PHOSPHATASE 64 U/L (46-116); ALT (SGPT) 27 U/L (10-68); BILIRUBIN - TOTAL 0.31 mg/dL (0.2-1.3); CALC OSMOLALITY 287 mosm/kg (275-300); CALCIUM 9.3 mg/dL (8.5-10.1); CARBON DIOXIDE 26.9 mmol/L (21.0-32.0); CHLORIDE - SERUM 106 mmol/L (98-107); CREATININE - SERUM 1.2 mg/dL (0.6-1.3); POTASSIUM - SERUM 4.3 mmol/L (3.5-5.1); PROTEIN - SERUM 7.1 g/dL (6.4-8.2); SODIUM 140 mmol/L (136-145); UREA NITROGEN 22 mg/dL (7-18); eGFR NON AFRICAN AMERICAN 64 mL/min (90-120)
[2018-11-03 10:36] LABS: GLUCOSE 204 mg/dL (74-106)
[2018-11-03 10:44] LABS: CKMB 0.8 U/L (0.0-3.6); CREATINE KINASE 48 UL (21-232); MAGNESIUM - SERUM 1.8 mg/dL (1.8-2.4)
[2018-11-03 10:45] LABS: TROPONIN-I < 0.017 ng/mL (0.000-0.060)
--- NOTE | 2018-11-03 15:55 | CN ---
PATIENT NAME:LETICIA LAMB MEDICAL RECORD: [id number] : 54 LOCATION:D.CAT ADMIT DATE: ACCOUNT: [id number] CONSULTING PHYSICIAN: MICHAEL FONSECA MD REFERRING PHYSICIAN: NIXON MARCELO MD DATE OF CONSULTATION: 11/03/2018 DIAGNOSES: 1. Unstable angina. 2. Coronary artery disease. 3. Previous multivessel percutaneous transluminal coronary angioplasty stent. 4. Hypertension. 5. Hyperlipidemia. 6. Paroxysmal atrial fibrillation. HISTORY OF PRESENT ILLNESS: Mr. Lamb presents with unstable anginal symptomatology. He was in our clinic earlier this week having gone through greater than 200 sublingual nitro in the last week. We then placed him on high dose nitropatch. He continues to have unstable angina, requiring high nitro use. He now presents to the Emergency Room. He is on maximal medical therapy with a beta rashid, Ranexa, Imdur, nitropatch continued and still has class IV anginal symptomatology. He is as well a diabetic. PHYSICAL EXAMINATION: CONSTITUTIONAL/GENERAL APPEARANCE: Well nourished, well developed, appears stated age. Level of distress, comfortable. EYES: Lids and conjunctivae noninjected. No discharge. No pallor. ENT: Lips within normal limit. No cyanosis. No pallor. NECK: Carotid arteries, bilateral normal upstroke. No bruits. No thrills. No jugular venous pressure or distention. CERVICAL LYMPH NODES: Nontender. Nonenlarged. THYROID: Not enlarged. No nodules. CARDIOVASCULAR: Precordial exam, nondisplaced. No heaves or pericardial thrills. Rate and rhythm, regular. Heart sounds, normal S1, normal S2. No S3, no gallop, no rub. Systolic murmur, not heard. Diastolic murmur, not heard. RESPIRATORY: Respiratory effort, unlabored. Normal curvature. No thoracic deformity. No chest wall tenderness. Percussion, resonant. Auscultation, clear. No wheezes, no rales, no rhonchi. ABDOMEN: Soft, nondistended, nontender. No abdominal pain, no vomiting and normal appetite. MUSCULOSKELETAL: No joint tenderness, normal gait, normal tone. SKIN: Warm and dry. OVERALL IMPRESSION: Unstable angina. We will proceed with coronary angiography. Further care depends upon the findings of the angiography. TRANSINT:[id number] Voice Confirmation ID: [id number] DOCUMENT ID: [id number] CONSULT REPORT [id number] LETICIA LAMB, MICHAEL VICTOR at 1555 CC: [id number] DICTATION DATE: 11/03/18 1029 CANE PILER: 11/03/18 1037 [id number] [place] [address]
[2018-11-03 16:23] VITALS: BP 107/76
[2018-11-03 16:36] VITALS: BP 107/76; Ht 172.7 cm; Wt 94.1 kg
[2018-11-03 20:00] VITALS: BP 105/56
--- NOTE | 2018-11-03 20:00 | NUR ---
INITIAL ROUNDS AND ASSESSMENT COMPLETED. PT NOW OFF BEDREST FROM HEART CATH. ASSESSED SITE TO RIGHT GROIN. DRESSING C/D/I WITH NO SWELLING OR BRUISING OR BLEEDING NOTED. SR PER TELEMETRY. O2 @ 2L/NC. IVF COMPLETED AT THIS TIME AND LFA PIV SALINE LOCKED. PT ALERT/ORIENTED AND VOICING NO NEEDS AT THIS TIME.
[2018-11-04] VITALS: BP 123/71
--- NOTE | 2018-11-04 | NUR ---
PT C/O SOB, HE ALSO DOES NOT HAVE HIS OXYGEN IN PLACE. REPLACED O2 @ 2L/NC. 70/SR PER TELEMETRY. O2 SAT 98%. WILL MONITOR.
--- NOTE | 2018-11-04 00:22 | NUR ---
PHONE CALL TO DR FONSECA, REPORTED SOB/ASTHMA HISTORY. ORDER FOR UPDRAFT AND CAN RESTART PT'S HOME MED OF PERCOCET.
--- NOTE | 2018-11-04 01:03 | NUR ---
MEDICATED WITH PERCOCET PILL FOR GENERALIZED DISCOMFORT AND HAVE SPOKEN WITH RESPIRATORY ABOUT NEW ORDER FOR UPDRAFT FOR PT'S SOB.
--- NOTE | 2018-11-04 01:05 | NUR ---
NOTED PT'S ALLERGY TO ALBUTEROL, SPOKE WITH HIM AND HE STATES WHEN HE TAKES IT IT MAKES HIS HEART RATE GO UP. DENIES ANY OTHER SYMPTOM. PT IS CURRENTLY 75/SR PER TELEMETRY, PT SHOULD BE ABLE TO TOLERATE THE TREATMENT.
[2018-11-04 04:00] VITALS: BP 106/64
--- NOTE | 2018-11-04 07:15 | NUR ---
RECEIVED PT IN BED AAOX4 RESP UNLABORED SKIN W/D DENIES ANY NEEDS OR DISCOMFORT AT THIS TIME
--- NOTE | 2018-11-04 13:40 | NUR ---
REVIEWED DISCHARGE INSTRUCTIONS WITH PT STATES UNDERSTANDING COPY GIVEN DCD SALINE LOCK TO LFA WITH IV CATHETER INTACT SITE FREE OF REDNESS OR EDEMA PT DISCHARGED HOME LEFT UNIT VIA W/C IN STABLE CONDITION WITH ALL PERSONAL BELONGINGS
[2018-11-04] MEDS ORDERED: ISOSORBIDE MONO20 MG PO (19:04)
--- NOTE | 2018-11-07 11:09 | OP ---
PATIENT NAME: LETICIA LAMB MEDICAL RECORD: [id number] :54 LOCATION:D.CAT ADMISSION DATE: SURGEON: MICHAEL FONSECA MD DATE OF OPERATION: 11/03/2018 DATE OF SERVICE: 11/03/2018 PROCEDURES: 1. PTCA stent vein graft to circumflex. 2. PTCA stent left circumflex through patent vein graft. 3. Selective coronary angiography. 4. Vein graft angiography. 5. Left ventriculogram. 6. IFR. PROCEDURE IN DETAIL: After informed consent was obtained and after a detailed description of risks, benefits as well as alternative therapies, the patient elected to proceed with angiogram and angioplasty. The right femoral area was prepped and draped in normal sterile fashion. The right femoral artery was cannulated via modified Seldinger technique with placement of 6-Tunisian sheath. All catheters exchanged through this sheath. FINDINGS: Left ventriculogram was performed in standard 30-degree BURR view, reveals global hypokinesis, ejection fraction 30 to 35%. SELECTIVE CORONARY ANGIOGRAPHY: 1. Left main is with no significant angiographic disease. 2. Left anterior descending is closed. 3. Left circumflex is closed. 4. Right coronary artery is closed. 5. Vein graft to the LAD is patent. The previously placed stents are widely patent with no significant restenosis. Distal LAD is widely patent. 6. Vein graft to the circumflex has a questionable stenosis in the proximal aspect as well as in the circumflex itself themselves, both of these appear to be 70%, IFR is abnormal. PTCA STENT OF THE LAC VIEUX VEIN GRAFT CIRCUMFLEX WELL CIRCUMFLEX ITSELF: The stents used in the vein graft to the surgery of the circumflex was 3.5 x 15 mm Og and circumflex itself was 3.0 x 15 mm Og. Result was 0% residual stenosis. OVERALL IMPRESSION: Successful percutaneous transluminal coronary angioplasty stent of the vein graft to the circumflex as well as circumflex itself through the vein graft going from 70% initial stenosis to 0% residual. TRANSINT:[id number] Voice Confirmation ID: [id number] DOCUMENT ID: [id number] OPERATIVE REPORT [id number] ZAINABLETICIA Olmedo JEFFREY MD at 1109 CC: [id number] DICTATION DATE: 11/03/18 1551 HELPER METAL HANGING: 11/03/18 1606 DEP CLI 11/04/18 [facility] [address] [place] [address]
== END 2018-11-04 13:40 | disposition home or self-care (01) ==
LOC: D.ER 09:45 → D.CATH 09:45 → D.M2 09:45 → EDSTATUS 10:32 → D.M2 16:03 → D.CATH 11-04 13:40
PROVIDERS: Family Medicine; ATTEND Internal Medicine Interventional Cardiology
DX: I25.119 Atherosclerotic heart disease of native coronary artery with unspecified angina pectoris (principal); I25.719 Atherosclerosis of autologous vein coronary artery bypass graft(s) with unspecified angina pectoris; Z01.812 Encounter for preprocedural laboratory examination
CPT/HCPCS: 93459; C9604; 93571

== ENCOUNTER 2018-11-04 17:38 | Emergency (ER) | payer MEDICARE, MEDICAID ==
[~2018-11-04] VITALS: Ht 172.7 cm; Wt 95.5 kg
[2018-11-04 17:41] VITALS: Ht 172.7 cm; Wt 95.5 kg
[2018-11-04 18:22] LABS: BASOPHILS 0.3 % (0-2); EOSINOPHILS 1.8 % (0-7); HEMATOCRIT 29.6 % (42.0-54.0); HEMOGLOBIN 9.7 g/dL (13.5-17.5); IMMATURE GRANULOCYTES 0.1 % (0-5); LYMPHOCYTES 22.1 % (15-50); MCH 32.2 pg (26.0-34.0); MCHC 32.8 g/dL (31.0-37.0); MCV 98.3 fL (80.0-100.0); MEAN PLATELET VOLUME 11.1 fL (7.4-10.4); MONOCYTES 9.4 % (2-11); NEUTROPHILS 66.3 % (40-80); PLATELET COUNT 223 10x3/uL (130-400); RBC 3.01 10x6/uL (4.20-6.10); WBC 6.7 10x3/uL (4.8-10.8)
[2018-11-04 18:37] LABS: ALBUMIN 3.5 g/dL (3.4-5.0); ALKALINE PHOSPHATASE 59 U/L (46-116); ALT (SGPT) 26 U/L (10-68); BILIRUBIN - TOTAL 0.43 mg/dL (0.2-1.3); CALC OSMOLALITY 283 mosm/kg (275-300); CALCIUM 8.9 mg/dL (8.5-10.1); CARBON DIOXIDE 26.7 mmol/L (21.0-32.0); CHLORIDE - SERUM 105 mmol/L (98-107); CREATININE - SERUM 1.2 mg/dL (0.6-1.3); GLUCOSE 161 mg/dL (74-106); POTASSIUM - SERUM 4.5 mmol/L (3.5-5.1); PROTEIN - SERUM 6.8 g/dL (6.4-8.2); SODIUM 140 mmol/L (136-145); UREA NITROGEN 18 mg/dL (7-18); eGFR NON AFRICAN AMERICAN 64 mL/min (90-120)
[2018-11-04 18:52] LABS: CREATINE KINASE 71 UL (21-232)
[2018-11-04 18:58] LABS: TROPONIN-I 0.069 ng/mL (0.000-0.060)
[2018-11-04] MEDS ORDERED: ISOSORBIDE MONO20 MG PO (19:04)
[2018-11-04 19:29] VITALS: BP 123/72
--- NOTE | 2018-11-07 11:09 | DS ---
PATIENT:LETICIA LAMB :54 MEDICAL RECORD: [id number] DISCHARGE SUMMARY ADMISSION DATE: 11/04/18 DISCHARGE DATE: 11/04/18 DISCHARGE DIAGNOSES: 1. Unstable angina. 2. Coronary artery disease. 3. Percutaneous transluminal coronary angioplasty stent left anterior descending and vein graft to left anterior descending this admission. 4. Hypertension. 5. Hyperlipidemia. HOSPITAL COURSE: Mr. Lamb presents with unstable anginal symptomatology, found to have significant disease of the LAD as well as vein graft to the LAD, underwent successful PTCA stent of both territories, was discharged home with no changes in medication as he is already on aspirin and Plavix. [facility] with [facility] month. TRANSINT:[id number] Voice Confirmation ID: [id number] DOCUMENT ID: [id number] MICHAEL FONSECA MD at 1109 CC: [id number] DICTATION DATE: 11/05/18 1031 GAS OR PETROLEUM OPERATOR: 11/05/18 1056 DEP ER 11/04/18 [place] [id number] [place] [address]
== END 2018-11-04 19:29 | disposition home or self-care (01) ==
LOC: D.ER 17:38
PROVIDERS: Emergency Medicine
DX: R07.9 Chest pain, unspecified (principal); I25.10 Atherosclerotic heart disease of native coronary artery without angina pectoris; Z98.890 Other specified postprocedural states; Z95.1 Presence of aortocoronary bypass graft

== ENCOUNTER 2018-11-17 14:53 | Observation (INO) | payer MEDICARE, MEDICAID ==
[~2018-11-17] VITALS: Ht 172.7 cm; Wt 90.9 kg
[~2018-11-17 14:53] MED LIST changes: +ISOSORBIDE MONO20 MG PO
[2018-11-17 15:30] LABS: BASOPHILS 0.3 % (0-2); EOSINOPHILS 1.5 % (0-7); HEMATOCRIT 31.1 % (42.0-54.0); IMMATURE GRANULOCYTES 0.3 % (0-5); LYMPHOCYTES 23.6 % (15-50); MCH 29.9 pg (26.0-34.0); MCHC 32.2 g/dL (31.0-37.0); MCV 93.1 fL (80.0-100.0); MEAN PLATELET VOLUME 11.2 fL (7.4-10.4); MONOCYTES 9.4 % (2-11); NEUTROPHILS 64.9 % (40-80); PLATELET COUNT 249 10x3/uL (130-400); RBC 3.34 10x6/uL (4.20-6.10); RDW 14.5 % (11.5-14.5); WBC 6.5 10x3/uL (4.8-10.8)
--- NOTE | 2018-11-17 15:33 | NUR ---
chest pain 05/21 BP: 102/62
[2018-11-17 15:47] LABS: APTT 40.8 SECONDS (22.8-39.4); INR 1.95 (0.85-1.17); PROTIME 21.6 SECONDS (11.6-15.0)
[2018-11-17 15:51] LABS: ALBUMIN 3.6 g/dL (3.4-5.0); ALKALINE PHOSPHATASE 59 U/L (46-116); ALT (SGPT) 28 U/L (10-68); BILIRUBIN - TOTAL 0.43 mg/dL (0.2-1.3); CALC OSMOLALITY 285 mosm/kg (275-300); CALCIUM 8.7 mg/dL (8.5-10.1); CARBON DIOXIDE 25.5 mmol/L (21.0-32.0); CHLORIDE - SERUM 106 mmol/L (98-107); CREATININE - SERUM 1.3 mg/dL (0.6-1.3); GLUCOSE 133 mg/dL (74-106); POTASSIUM - SERUM 4.3 mmol/L (3.5-5.1); PROTEIN - SERUM 6.9 g/dL (6.4-8.2); SODIUM 142 mmol/L (136-145); UREA NITROGEN 16 mg/dL (7-18); eGFR NON AFRICAN AMERICAN 59 mL/min (90-120)
[2018-11-17 16:16] LABS: CKMB 0.8 U/L (0.0-3.6); CREATINE KINASE 58 UL (21-232); MAGNESIUM - SERUM 1.7 mg/dL (1.8-2.4); TROPONIN-I 0.016 ng/mL (0.000-0.060)
--- NOTE | 2018-11-17 19:10 | NUR ---
PATIENT ARRIVED FROM ER VIA WHEELCHAIR. PATIENT IS ALERT AND ORIENTED. RESPIRATIONS ARE EVEN AND UNLABORED. NO S/S OF DISTRESS. NO C/O PAIN. CALL LIGHT WITHIN REACH. WILL CPOC.
[2018-11-17] MEDS ORDERED: XARELTO20 MG PO (19:26)
[2018-11-17 22:19] VITALS: BP 128/62; Ht 172.7 cm; Wt 90.9 kg
[2018-11-17 22:29] LABS: CKMB 0.6 U/L (0.0-3.6); CREATINE KINASE 45 UL (21-232); PRO BNP 2957 pg/mL (0-125); TROPONIN-I 0.031 ng/mL (0.000-0.060)
[2018-11-18] VITALS: BP 97/54
[2018-11-18 00:55] LABS: ALBUMIN 3.5 g/dL (3.4-5.0); ALKALINE PHOSPHATASE 55 U/L (46-116); ALT (SGPT) 27 U/L (10-68); BILIRUBIN - TOTAL 0.55 mg/dL (0.2-1.3); CALC OSMOLALITY 283 mosm/kg (275-300); CALCIUM 8.7 mg/dL (8.5-10.1); CARBON DIOXIDE 26.9 mmol/L (21.0-32.0); CHLORIDE - SERUM 105 mmol/L (98-107); CREATININE - SERUM 1.2 mg/dL (0.6-1.3); GLUCOSE 123 mg/dL (74-106); POTASSIUM - SERUM 4.5 mmol/L (3.5-5.1); PROTEIN - SERUM 6.5 g/dL (6.4-8.2); SODIUM 141 mmol/L (136-145); UREA NITROGEN 19 mg/dL (7-18); eGFR NON AFRICAN AMERICAN 64 mL/min (90-120)
[2018-11-18 01:06] LABS: CKMB 0.6 U/L (0.0-3.6); CREATINE KINASE 70 UL (21-232); MAGNESIUM - SERUM 1.7 mg/dL (1.8-2.4); PHOSPHOROUS 3.5 mg/dL (2.5-4.9); TROPONIN-I 0.023 ng/mL (0.000-0.060)
[2018-11-18 04:00] VITALS: BP 96/62
[2018-11-18 05:08] LABS: BASOPHILS 0.5 % (0-2); EOSINOPHILS 2.7 % (0-7); HEMATOCRIT 29.4 % (42.0-54.0); HEMOGLOBIN 9.5 g/dL (13.5-17.5); LYMPHOCYTES 27.3 % (15-50); MCH 30.1 pg (26.0-34.0); MCHC 32.3 g/dL (31.0-37.0); MEAN PLATELET VOLUME 11.3 fL (7.4-10.4); MONOCYTES 10.2 % (2-11); NEUTROPHILS 59.3 % (40-80); PLATELET COUNT 226 10x3/uL (130-400); RBC 3.16 10x6/uL (4.20-6.10); RDW 14.6 % (11.5-14.5); WBC 6.3 10x3/uL (4.8-10.8)
[2018-11-18 05:43] LABS: CKMB 0.6 U/L (0.0-3.6); CREATINE KINASE 49 UL (21-232)
[2018-11-18 05:44] LABS: TROPONIN-I < 0.017 ng/mL (0.000-0.060)
--- NOTE | 2018-11-18 07:15 | NUR ---
RECEIVED PT WALKING AROUND IN ROOM AAOX4 RESP UNLABORED NAD NOTED DENIES ANY PAIN OR NEEDS AT THISTIME
[2018-11-18 09:35] VITALS: BP 109/73
[2018-11-18 10:10] LABS: CKMB 0.6 U/L (0.0-3.6); CREATINE KINASE 42 UL (21-232); TROPONIN-I < 0.017 ng/mL (0.000-0.060)
[2018-11-18 11:31] LABS: % SATURATION 8 % (15-55); IRON 40 ug/dl (35-150); TOTAL IRON BIND CAPACITY 488 ug/dl (260-445); UNSAT IRON BIND CAPACITY 448 ug/dl (150-375)
--- NOTE | 2018-11-18 12:02 | NUR ---
FSBS 215 REGULAR INSULIN 4 UNITS GIVEN SQ LT ARM
[2018-11-18 13:37] VITALS: BP 103/55
--- NOTE | 2018-11-18 16:11 | MORECARE ---
CASE MANAGEMENT DISCHARGE SUMMARY PATIENT: LETICIA LAMB UNIT: [id number] ADM DATE: 11/17/18 AGE: 68 : 52 SEX: M ROOM/BED: D.[facility]6 AUTHOR: ALEJANDRO SANCHEZ PHYSICIAN: REFERRING PHYSICIAN: VIET OWENS MD DATE OF SERVICE: 11/18/18 Discharge Plan Patient Name: LETICIA LAMB [facility] : 1950 Planned Disposition: Home Anticipated Discharge Date: Discharge Date: Expected LOS: Initial Reviewer: [email or web address] Initial Review Date: 11/17/2018 Generated: 11/18/18 5:10 pm Coverage Notice Reviewer: [email or web address] - Shweta Bennett Notice Issued Date-Time: 11/18/2018 16:07 Notice Type: IM Discharge Notice Notice Delivered To: Patient Relationship to Patient: Self Hand Cementer Name: Delivery Method: HAND - Hand Delivered Beverly Days: Prior Verbal Notification: Recipient Understood Notice: Yes Recipient Signature: Yes Med Rec Note Co-signed by Attending: Coverage Notice Comment: DISCHARGE IMM SERVED. CM EXPLAINED NOTICE. PATIENT HAD NO QUESTIONS NO CONCERNS. Patient Name: LETICIA LAMB Page [id number] at 1611 All edits/amendments must be made on the electronic document DICTATION DATE: 11/18/18 1610 SANIPRACTIC PHYSICIAN: BOB 11/18/18 1610 RPT#: [id number] DC DATE: STATUS: ADM IN [facility] [address] [place] [address] END OF REPORT
--- NOTE | 2018-11-18 16:18 | MORECARE ---
CASE MANAGEMENT DISCHARGE SUMMARY PATIENT: LETICIA LAMB UNIT: [id number] ADM DATE: 11/17/18 AGE: 68 : 52 SEX: M ROOM/BED: D.[facility]6 AUTHOR: ALEJANDRO SANCHEZ PHYSICIAN: REFERRING PHYSICIAN: VIET OWENS MD DATE OF SERVICE: 11/18/18 Discharge Plan Patient Name: LETICIA LAMB Facility: [facility]:[place] : 1950 Planned Disposition: Home Anticipated Discharge Date: Discharge Date: Expected LOS: Initial Reviewer: [email or web address] Initial Review Date: 11/17/2018 Generated: 11/18/18 5:17 pm DCPIA - Discharge Planning Initial Assessment Updated by RAY: Shweta Bennett on 11/18/18 4:16 pm * Is the patient Alert and Oriented? Yes * How many steps to enter\exit or inside your home? TWO * PCP DR BAUER * Pharmacy [facility] * Preadmission Environment Home Alone * ADLs Independent * Equipment None * Other Equipment N/A * List name and contact numbers for known caregivers / representatives who currently or will assist patient after discharge: SRAVANTHI LAMB - BROTHER- [phone] * Verbal permission to speak to the caregivers and representatives has been obtained from the patient. No * Community resources currently utilized None * Please name any agencies selected above. N/A * Additional services required to return to the preadmission environment? No * Can the patient safely return to the preadmission environment? Yes * Has this patient been hospitalized within the prior 30 days at any hospital? Yes Coverage Notice Reviewer: [email or web address] - Shweta Bennett Notice Issued Date-Time: 11/18/2018 16:07 Notice Type: IM Discharge Notice Notice Delivered To: Patient Relationship to Patient: Self Supervisor Ski Production Name: Delivery Method: HAND - Hand Delivered Beverly Days: Prior Verbal Notification: Recipient Understood Notice: Yes Recipient Signature: Yes Med Rec Note Co-signed by Attending: Coverage Notice Comment: DISCHARGE IMM SERVED. CM EXPLAINED NOTICE. PATIENT HAD NO QUESTIONS NO CONCERNS. Last DP export: 11/18/18 3:11 pm Patient Name: LETICIA LAMB Page [id number] at 1618 All edits/amendments must be made on the electronic document DICTATION DATE: 11/18/181616 PAINTER SET: BOB 11/18/181616 RPT#: [id number] DC DATE: STATUS: ADM IN [facility] [address] [place] [address] END OF REPORT
--- NOTE | 2018-11-18 16:36 | MORECARE ---
CASE MANAGEMENT DISCHARGE SUMMARY PATIENT: LETICIA LAMB UNIT: [id number] ADM DATE: 11/17/18 AGE: 68 : 52 SEX: M ROOM/BED: D.7376 AUTHOR: ALEJANDRO SANCHEZ PHYSICIAN: REFERRING PHYSICIAN: VIET OWENS MD DATE OF SERVICE: 11/18/18 Discharge Plan Patient Name: LETICIA LAMB Facility: [facility]:[place] : 1950 Planned Disposition: Home Anticipated Discharge Date: Discharge Date: Expected LOS: Initial Reviewer: [id number] Initial Review Date: 11/17/2018 Generated: 11/18/18 5:36 pm Comments DCP- Discharge Planning Updated by [id number]: Shweta Bennett on 11/18/18 3:[address] CM MET WITH THE PATIENT AT THE BEDSIDE. HE WAS OOB SEEMINGLY COMFORTABLE RESTING IN THE CHAIR. RESPIRATIONS EASY. NO NASAL O2. CM EXPLAINED CM ROLE AND EXPLAINED MD HAD ORDERED A CONSULT. EXPLAINED CARE OPTIONS AT DISCHARGE. PATIENT LIVES ALONE. HE IS INDEPENDENT IN HIS CARE. DOES NOT UTILIZE ANY DME. DOES NOT HAVE ANY COMMUNITY OR HOME HEALTH SERVICES. HE DECLINES ANY SERVICES AT DISCHARGE. DENIES NEED. HIS BROTHER, SRAVANTHI, IS HIS EMERGENCY CONTACT. PCP- DR BAUER PHARMACY- [facility] HE PLANS ON DRIVING HIMSELF HOME AT DISCHARGE. CM EXPLAINED DISCHARGE IMM. HE STATED HE UNDERSTOOD. VOICED NO QUESTIONS OR CONCERNS. SIGNED COPY TO THE PATIENT. SIGNED COPY TO HIS CHART. NO DISCHARGE ORDER AT THIS TIME. DCPIA - Discharge Planning Initial Assessment Updated by [id number]: Shweta Bennett on 11/18/18 4:16 pm * Is the patient Alert and Oriented? Yes * How many steps to enter\exit or inside your home? TWO * PCP DR BAUER * Pharmacy [facility] * Preadmission Environment Home Alone * ADLs Independent * Equipment None * Other Equipment N/A * List name and contact numbers for known caregivers / representatives who currently or will assist patient after discharge: SRAVANTHI LAMB - BROTHER- [phone] * Verbal permission to speak to the caregivers and representatives has been obtained from the patient. No * Community resources currently utilized None * Please name any agencies selected above. N/A * Additional services required to return to the preadmission environment? No * Can the patient safely return to the preadmission environment? Yes * Has this patient been hospitalized within the prior 30 days at any hospital? Yes Coverage Notice Reviewer: [id number] Hortencia DollShweta Chester Notice Issued Date-Time: 11/18/2018 16:07 Notice Type: IM Discharge Notice Notice Delivered To: Patient Relationship to Patient: Self Ink Grinder Name: Delivery Method: HAND - Hand Delivered Beverly Days: Prior Verbal Notification: Recipient Understood Notice: Yes Recipient Signature: Yes Med Rec Note Co-signed by Attending: Coverage Notice Comment: DISCHARGE IMM SERVED. CM EXPLAINED NOTICE. PATIENT HAD NO QUESTIONS NO CONCERNS. Last DP export: 11/18/18 3:18 pm Patient Name: LETICIA LAMB Page [id number] at 1636 All edits/amendments must be made on the electronic document DICTATION DATE: 11/18/18 1636 TREASURY ACCOUNTANT: BOB 11/18/18 1636 RPT#: [id number] DC DATE: STATUS: ADM IN [facility] [address] [place] [address] END OF REPORT
--- NOTE | 2018-11-18 18:16 | NUR ---
REVIEWED DISCHARGE INSTRUCTIONS WITH PT STATES UNDERSTANDING COPY GIVEN DCD SALINE LOCK DCD TO LFA WITH IV CATHETER INTACT SITE FREE OF REDNESS OR EDEMA PT DISCHARGED HOME LEFT UNIT VIA W/C WITH ALL PERSONAL BELONGINGS
--- NOTE | 2018-11-19 10:50 | MORECARE ---
CASE MANAGEMENT DISCHARGE SUMMARY PATIENT: LETICIA LAMB UNIT: [id number] ADM DATE: 11/17/18 AGE: 68 : 52 SEX: M ROOM/BED: D.2116 AUTHOR: ALEJANDRO SANCHEZ PHYSICIAN: REFERRING PHYSICIAN: VIET OWENS MD DATE OF SERVICE: 11/19/18 Discharge Plan Patient Name: LETICIA LAMB Facility: [facility]:[place] : 1950 Planned Disposition: Home Anticipated Discharge Date: 11/18/18 Discharge Date: 11/18/2018 Expected LOS: 1 Initial Reviewer: [id number] Initial Review Date: 11/17/2018 Generated: 11/19/18 11:50 am Comments DCP- Discharge Planning Updated by [id number]: Shweta Bennett on 11/18/18 3:[address] CM MET WITH THE PATIENT AT THE BEDSIDE. HE WAS OOB SEEMINGLY COMFORTABLE RESTING IN THE CHAIR. RESPIRATIONS EASY. NO NASAL O2. CM EXPLAINED CM ROLE AND EXPLAINED MD HAD ORDERED A CONSULT. EXPLAINED CARE OPTIONS AT DISCHARGE. PATIENT LIVES ALONE. HE IS INDEPENDENT IN HIS CARE. DOES NOT UTILIZE ANY DME. DOES NOT HAVE ANY COMMUNITY OR HOME HEALTH SERVICES. HE DECLINES ANY SERVICES AT DISCHARGE. DENIES NEED. HIS BROTHER, SRAVANTHI, IS HIS EMERGENCY CONTACT. PCP- DR BAUER [facility]ARMACY- [facility] HE PLANS ON DRIVING HIMSELF HOME AT DISCHARGE. CM EXPLAINED DISCHARGE IMM. HE STATED HE UNDERSTOOD. VOICED NO QUESTIONS OR CONCERNS. SIGNED COPY TO THE PATIENT. SIGNED COPY TO HIS CHART. NO DISCHARGE ORDER AT THIS TIME. DCPIA - Discharge Planning Initial Assessment Updated by [id number]: Shweta Bennett on 11/18/18 4:16 pm * Is the patient Alert and Oriented? Yes * How many steps to enter\exit or inside your home? TWO * PCP DR BAUER * Pharmacy [facility] * Preadmission Environment Home Alone * ADLs Independent * Equipment None * Other Equipment N/A * List name and contact numbers for known caregivers / representatives who currently or will assist patient after discharge: SRAVANTHI LAMB - BROTHER- [phone] * Verbal permission to speak to the caregivers and representatives has been obtained from the patient. No * Community resources currently utilized None * Please name any agencies selected above. N/A * Additional services required to return to the preadmission environment? No * Can the patient safely return to the preadmission environment? Yes * Has this patient been hospitalized within the prior 30 days at any hospital? Yes Coverage Notice Reviewer: [id number] Hortencia DollShweta Houghton Notice Issued Date-Time: 11/18/2018 16:07 Notice Type: IM Discharge Notice Notice Delivered To: Patient Relationship to Patient: Self Tree Warden Name: Delivery Method: HAND - Hand Delivered Beverly Days: Prior Verbal Notification: Recipient Understood Notice: Yes Recipient Signature: Yes Med Rec Note Co-signed by Attending: Coverage Notice Comment: DISCHARGE IMM SERVED. CM EXPLAINED NOTICE. PATIENT HAD NO QUESTIONS NO CONCERNS. Last DP export: 11/18/18 3:36 pm Patient Name: LETICIA LAMB Page [id number] at 1050 All edits/amendments must be made on the electronic document DICTATION DATE: 11/19/18 1050 APPLIANCE INSTALLER: BOB 11/19/18 1050 RPT#: [id number] DC DATE:11/18/18 STATUS: DIS IN [facility] [address] [place] [address] END OF REPORT
--- NOTE | 2018-11-22 14:31 | CN ---
PATIENT NAME:LETICIA LAINEZ MEDICAL RECORD: [id number] : 54 LOCATION:D. D.2116 ADMIT DATE: 11/17/18 ACCOUNT: [id number] CONSULTING PHYSICIAN: MICHAEL FONSECA MD REFERRING PHYSICIAN: VIET OWENS MD DATE OF CONSULTATION: 11/17/2018 DIAGNOSES: 1. Angina, chronic stable. 2. Coronary artery disease. 3. Previous multivessel percutaneous transluminal coronary angioplasty stent. 4. Hypertension. 5. Hyperlipidemia. 6. Noninsulin-dependent diabetes. HISTORY OF PRESENT ILLNESS: Mr. Lainez presents with continued anginal symptomatology. Last cardiac intervention was in the last month. There are no other lesions that need attention. He continued to have angina. He is on maximal medical therapy with heart rates in the 60s and 70s and systolic blood pressures in the 110 range. He is on Imdur, Ranexa, beta rashid. He has a history of atrial fibrillation. He remained in sinus rhythm at this point and is on Xarelto. His hyperlipidemia is treated with Pravachol as well as TriCor. He does remain on his Plavix. PHYSICAL EXAMINATION: CONSTITUTIONAL/GENERAL APPEARANCE: Well nourished, well developed, appears stated age. EYES: Lids and conjunctivae noninjected. No discharge. No pallor. ENT: Lips within normal limit. No cyanosis. No pallor. NECK: Carotid arteries, bilateral normal upstroke. No bruits. No thrills. No jugular venous pressure or distention. CERVICAL LYMPH NODES: Nontender. Nonenlarged. THYROID: Not enlarged. No nodules. CARDIOVASCULAR: Precordial exam, nondisplaced. No heaves or pericardial thrills. Rate and rhythm, regular. Heart sounds, normal S1, normal S2. No S3, no gallop, no rub. Systolic murmur, not heard. Diastolic murmur, not heard. RESPIRATORY: Respiratory effort, unlabored. Normal curvature. No thoracic deformity. No chest wall tenderness. Percussion, resonant. Auscultation, clear. No wheezes, no rales, no rhonchi. ABDOMEN: Soft, nondistended, nontender. No abdominal pain, no vomiting and normal appetite. MUSCULOSKELETAL: No joint tenderness, normal gait, normal tone. SKIN: Warm and dry. OVERALL IMPRESSION: Continued angina, chronic stable. At this time, no other cardiac workup or treatment is necessary. TRANSINT:[id number] Voice Confirmation ID: [id number] DOCUMENT ID: [id number] CONSULT REPORT [id number] LETICIA LAINEZ JEFFREY MD at 1431 CC: [id number] DICTATION DATE: 11/17/18 162 QUALITY ASSURANCE SUPERVISOR: 11/17/181928 DIS IN 11/18/18 [facility] [address] [place] [id number]
== END 2018-11-18 18:16 | disposition home or self-care (01) ==
LOC: D.ER 14:53 → D.M2 18:12 → OBSVTIME 18:14 → D.M2 11-18 18:16
PROVIDERS: Family Medicine; Family Medicine Adult Medicine; ADMIT Family Medicine; ATTEND Family Medicine
DX: I25.110 Atherosclerotic heart disease of native coronary artery with unstable angina pectoris (principal); I10 Essential (primary) hypertension; E78.5 Hyperlipidemia, unspecified; E11.9 Type 2 diabetes mellitus without complications; Z95.5 Presence of coronary angioplasty implant and graft; I11.0 Hypertensive heart disease with heart failure; I50.20 Unspecified systolic (congestive) heart failure; E11.40 Type 2 diabetes mellitus with diabetic neuropathy, unspecified; J44.9 Chronic obstructive pulmonary disease, unspecified; I48.91 Unspecified atrial fibrillation; D64.9 Anemia, unspecified

== ENCOUNTER 2018-12-04 02:21 | Emergency (ER) | payer MEDICARE, MEDICAID ==
[~2018-12-04] VITALS: Ht 172.7 cm; Wt 93.2 kg
[2018-12-04 02:30] VITALS: Ht 172.7 cm; Wt 93.2 kg
[2018-12-04] MEDS ORDERED: ISOSORBIDE MONO20 MG PO (02:45)
[2018-12-04] MEDS ORDERED: NITROSTAT0.4 MG SL (02:48)
[2018-12-04 03:01] LABS: BASOPHILS 0.4 % (0-2); EOSINOPHILS 2.5 % (0-7); HEMATOCRIT 33.1 % (42.0-54.0); HEMOGLOBIN 10.6 g/dL (13.5-17.5); IMMATURE GRANULOCYTES 0.3 % (0-5); LYMPHOCYTES 26.8 % (15-50); MCH 29.8 pg (26.0-34.0); MEAN PLATELET VOLUME 11.2 fL (7.4-10.4); MONOCYTES 7.5 % (2-11); NEUTROPHILS 62.5 % (40-80); PLATELET COUNT 262 10x3/uL (130-400); RBC 3.56 10x6/uL (4.20-6.10); RDW 17.6 % (11.5-14.5); WBC 7.3 10x3/uL (4.8-10.8)
[2018-12-04 03:07] LABS: INR 2.74 (0.85-1.17); PROTIME 28.3 SECONDS (11.6-15.0)
[2018-12-04 03:10] LABS: ALBUMIN 3.6 g/dL (3.4-5.0); ALKALINE PHOSPHATASE 96 U/L (46-116); ALT (SGPT) 21 U/L (10-68); BILIRUBIN - TOTAL 0.33 mg/dL (0.2-1.3); CALC OSMOLALITY 290 mosm/kg (275-300); CALCIUM 9.4 mg/dL (8.5-10.1); CARBON DIOXIDE 29.2 mmol/L (21.0-32.0); CHLORIDE - SERUM 107 mmol/L (98-107); CREATININE - SERUM 1.5 mg/dL (0.6-1.3); GLUCOSE 183 mg/dL (74-106); POTASSIUM - SERUM 4.4 mmol/L (3.5-5.1); SODIUM 143 mmol/L (136-145); UREA NITROGEN 16 mg/dL (7-18); eGFR NON AFRICAN AMERICAN 50 mL/min (90-120)
[2018-12-04 03:21] LABS: CKMB 0.8 U/L (0.0-3.6); CREATINE KINASE 50 UL (21-232); MAGNESIUM - SERUM 1.7 mg/dL (1.8-2.4); TROPONIN-I < 0.017 ng/mL (0.000-0.060)
[2018-12-04 04:05] VITALS: BP 100/57
== END 2018-12-04 04:05 | disposition home or self-care (01) ==
LOC: D.ER 02:21
PROVIDERS: Emergency Medicine
DX: R07.9 Chest pain, unspecified (principal); I25.110 Atherosclerotic heart disease of native coronary artery with unstable angina pectoris; D64.9 Anemia, unspecified; E11.65 Type 2 diabetes mellitus with hyperglycemia

== ENCOUNTER → 2019-03-05 15:14 | Outpatient (CLI) | payer MEDICARE, MEDICAID ==
[2018-12-04 02:30] VITALS: BMI 31.2
[2019-03-12 13:09] LABS: OVA + PARASITE EXAM Final report (())
== END | disposition home or self-care (01) ==
LOC: D.LABREF 15:14
PROVIDERS: ATTEND Internal Medicine Nephrology
DX: R19.7 Diarrhea, unspecified (principal)

== ENCOUNTER 2019-03-07 17:22 | Emergency (ER) | payer MEDICARE, MEDICAID ==
[~2019-03-07] VITALS: Ht 172.7 cm; Wt 90.0 kg
[2019-03-07 17:25] VITALS: Ht 172.7 cm; Wt 90.0 kg
[2019-03-07 20:00] VITALS: BP 106/59
== END 2019-03-07 20:00 | disposition home or self-care (01) ==
LOC: D.ER 17:22
DX: E16.2 Hypoglycemia, unspecified (principal); E11.40 Type 2 diabetes mellitus with diabetic neuropathy, unspecified; Z79.84 Long term (current) use of oral hypoglycemic drugs; I10 Essential (primary) hypertension; I25.10 Atherosclerotic heart disease of native coronary artery without angina pectoris; J44.9 Chronic obstructive pulmonary disease, unspecified; Z95.1 Presence of aortocoronary bypass graft; Z72.0 Tobacco use

== ENCOUNTER 2019-03-08 00:44 | Inpatient (IN) | payer MEDICARE, MEDICAID ==
[~2019-03-08] VITALS: Ht 172.7 cm; Wt 83.9 kg
[2019-03-08 01:15] LABS: BASOPHILS 0 % (0-2); CALC OSMOLALITY 284 mosm/kg (275-300); CALCIUM 8.5 mg/dL (8.5-10.1); CARBON DIOXIDE 25.7 mmol/L (21.0-32.0); CHLORIDE - SERUM 100 mmol/L (98-107); CREATININE - SERUM 3.2 mg/dL (0.6-1.3); EOSINOPHILS 0 % (0-7); HEMOGLOBIN 8.6 g/dL (13.5-17.5); IMMATURE GRANULOCYTES 0.3 % (0-5); LYMPHOCYTES 3.9 % (15-50); MCH 31.3 pg (26.0-34.0); MCHC 31.9 g/dL (31.0-37.0); MCV 98.2 fL (80.0-100.0); MEAN PLATELET VOLUME 9.6 fL (7.4-10.4); MONOCYTES 4.3 % (2-11); NEUTROPHILS 91.5 % (40-80); PLATELET COUNT 350 10x3/uL (130-400); POTASSIUM - SERUM 3.8 mmol/L (3.5-5.1); RBC 2.75 10x6/uL (4.20-6.10); RDW 17.3 % (11.5-14.5); SODIUM 138 mmol/L (136-145); UREA NITROGEN 42 mg/dL (7-18); WBC 14.7 10x3/uL (4.8-10.8); eGFR NON AFRICAN AMERICAN 21 mL/min (90-120)
[2019-03-08 01:17] LABS: GLUCOSE 63 mg/dL (74-106)
[2019-03-08 01:24] LABS: APTT 52.8 SECONDS (22.8-39.4); INR 1.97 (0.85-1.17); PROTIME 21.7 SECONDS (11.6-15.0)
--- NOTE | 2019-03-08 01:40 | NUR ---
IO NEEDLE THAT WAS STARTED PER EMS IN LEFT HUMERUS REMOVED.
[2019-03-08 01:41] LABS: ALBUMIN 2.3 g/dL (3.4-5.0); ALKALINE PHOSPHATASE 82 U/L (46-116); ALT (SGPT) 31 U/L (10-68); BILIRUBIN - TOTAL 1.03 mg/dL (0.2-1.3); CREATINE KINASE 220 UL (21-232); LIPASE 67 U/L (73-393); MAGNESIUM - SERUM 1.7 mg/dL (1.8-2.4); PRO BNP 11537 pg/mL (0-125); PROTEIN - SERUM 6.6 g/dL (6.4-8.2); TROPONIN-I < 0.017 ng/mL (0.000-0.060)
--- NOTE | 2019-03-08 02:20 | NUR ---
PT ASSISTED UP TO BEDSIDE COMMODE.
[2019-03-08 03:16] LABS: APPEARANCE HAZY (CLEAR); BACTERIA NONE SEEN /hpf (NEGATIVE); BILIRUBIN NEGATIVE (NEGATIVE); COLOR AMBER (YELLOW); EPITHELIAL CELLS OCC /hpf (0-5); GLUCOSE NEGATIVE (NEGATIVE); KETONE NEGATIVE (NEGATIVE); NITRITE NEGATIVE (NEGATIVE); PROTEIN TRACE mg/dL (NEGATIVE); UROBILINOGEN NORMAL (NORMAL); WHITE CELLS - URINE RARE /hpf (NEGATIVE)
[2019-03-08 03:17] LABS: GRANULAR CAST OCC /lpf (NONE SEEN)
--- NOTE | 2019-03-08 03:33 | NUR ---
IV INFILTRATED. RESITED TO LEFT FOREARM WITH 22G ABBA X 1.
--- NOTE | 2019-03-08 04:50 | NUR ---
PT TO ROOM 2136 VIA STRETCHER ACCOMPANIED BY MANJIT BOWDEN.
[2019-03-08 06:18] VITALS: BP 94/56; BMI 27.4
--- NOTE | 2019-03-08 06:46 | NUR ---
RECEIVED CRITICAL GLUCOSE VALUE OF 70 FROM LAB.
--- NOTE | 2019-03-08 07:19 | NUR ---
REPORT RECEIVED. WILL CONTINUE WITH POC. PT CURRENTLY LYING SEMI FOWLERS. CALL LIGHT W/I REACH. PT IS ASLEEP WITH EYES CLOSED AT THIS TIME. RR EVEN AND UNLABORED ON RA. D10W INFUSING @50ML/HR VIA L.FOR PIV. NO S/S OF DISTRESS NOTED. NIGHTSHIFT NURSE REPORTED OF FS @0630 WAS 67. WILL RECHECK. WILL CTM.
--- NOTE | 2019-03-08 07:58 | NUR ---
FSBS @0743 WAS 53. ADMININSTERED 25ML OF D50 PER PROTOCOL. PT SITTING UPRIGHT AND EATING BREAKFAST. WILL RECHECK IN 30 MINUTES. WILL CTM.
--- NOTE | 2019-03-08 09:07 | NUR ---
FSBS @0900 WAS 49. NOTIFIED VICTORIA WALLS WHO VERBALLY ORDERED TO ADMININSTER SECOND AMP OF D50. WILL ADMININSTER D50 AMP. WILL CTM.
[2019-03-08 09:10] VITALS: BP 98/61
--- NOTE | 2019-03-08 10:12 | NUR ---
FSBS @1010 WAS 89. WILL CTM.
--- NOTE | 2019-03-08 11:55 | NUR ---
AFTER SECOND FULL AMP OF D50 WAS ADMININSTERED, RECHECKED FSBS @1150 AND RECORDED 86. WILL CTM.
--- NOTE | 2019-03-08 13:21 | NUR ---
FSBS @7302 WAS 54. NOTIFIED WHO TELEPHONE INSTRUCTED TO "GIVE PATIENT GRAPE JUICE AND TELL HIM TO SUCK ON HARD CANDY." NOTIFIED AVNI WALLS WHO TELEPHONE ORDERED 1G ROCEPHIN IV Q24H NOW. PLACED ORDER. WILL CTM.
[2019-03-08 14:04] VITALS: BP 94/58
[2019-03-08 14:57] VITALS: Ht 172.7 cm; Wt 83.9 kg
--- NOTE | 2019-03-08 15:00 | NUR ---
FSBS WAS 129 @8060. [facility] CT.
--- NOTE | 2019-03-08 16:16 | NUR ---
FSBS WENT FROM 129 TO 67. D10 INFUSING @125ML/HR VIA L.FOR PIV. PT HAS BEEN ON TOILET FOR PAST FEW HOURS AND REFUSES TO GET OFF STATING "ILL JUST TOUGH IT OUT, IM STILL GOING." PT HAS MASSIVE DIARRHEA AND CONTINUES HAVING BOWEL MOVEMENTS. WILL CTM. ADMININSTERING TWO CUPS OF APPLE JUICE WITH SUGAR AND WILL RECHECK. WILL CTM.
--- NOTE | 2019-03-08 17:22 | NUR ---
FSBS @8736 WAS 87. WILL CTM.
--- NOTE | 2019-03-08 17:25 | NUR ---
I have reviewed this patient and I concur with the Shift Assessment completed by the Licensed Practical Nurse today this shift.
[2019-03-08 17:43] VITALS: BP 92/62
[2019-03-08 20:40] VITALS: BP 91/54
--- NOTE | 2019-03-08 22:07 | NUR ---
FSBS-163 AFTER IM GLUC. PT SITTING UP ON SIDE OF THE BED ALERT AND ORIENTED X4. NO S/S OF DISTRESS AT THIS TIME. VITALS STABLE. BED LOW CALL LIGHT WITHIN REACH. WILL CONTINUE TO MONITOR.
--- NOTE | 2019-03-08 23:28 | NUR ---
PT ON CAMMODE AT THIS TIME. PT STATES, "I CANT STAY OF IT." FSBS-115. NO S/S OF DISTRESS AT THIS TIME. WILL CONTINUE TO MONITOR.
[2019-03-09 00:04] VITALS: BP 111/49
[2019-03-09 04:47] VITALS: BP 115/52; BP 64/44
--- NOTE | 2019-03-09 09:48 | NUR ---
FSBS WAS 227 @0934. HOLDING INSULIN R/T PT HS OF RAPID DECLINE IN BLOOD SUGAR. WILL RECHECK IN 2 HOURS. ABX CURRENTLY INFUSING. D10 DROPPED TO 50ML/HR VIA L.FOR PIV. AM MEDICATIONS ADMININSTERED. WILL CTM. PT DENIES ANY NEEDS. PT CONTINUES HAVING EXPLOSIVE DIARRHEA.
[2019-03-09 10:13] VITALS: BP 100/51
[2019-03-09 12:54] LABS: BASOPHILS 0.1 % (0-2); EOSINOPHILS 0.3 % (0-7); HEMOGLOBIN 9.6 g/dL (13.5-17.5); IMMATURE GRANULOCYTES 0.6 % (0-5); LYMPHOCYTES 5.4 % (15-50); MCH 31.6 pg (26.0-34.0); MCV 98.7 fL (80.0-100.0); MEAN PLATELET VOLUME 9.9 fL (7.4-10.4); MONOCYTES 3.4 % (2-11); NEUTROPHILS 90.2 % (40-80); PLATELET COUNT 352 10x3/uL (130-400); RBC 3.04 10x6/uL (4.20-6.10); WBC 14.7 10x3/uL (4.8-10.8)
[2019-03-09 12:55] LABS: ANION GAP 18.6 mmol/L (8-16); CALCIUM 8.4 mg/dL (8.5-10.1); CARBON DIOXIDE 22.9 mmol/L (21.0-32.0); CREATININE - SERUM 3.2 mg/dL (0.6-1.3); POTASSIUM - SERUM 3.5 mmol/L (3.5-5.1)
--- NOTE | 2019-03-09 13:27 | NUR ---
I have reviewed this patient and I concur with the Shift Assessment completed by the Licensed Practical Nurse today this shift.
[2019-03-09 14:48] VITALS: BP 113/57
[2019-03-09 17:08] VITALS: BP 123/59
--- NOTE | 2019-03-09 19:36 | NUR ---
FSBS 180 @ THIS TIME. HOLDING INSULIN DUE RECENT HX OF RAPID DROP IN BLOOD SUGAR LEVEL ON INSULIN ADMINISTRATION. WILL RECHECK IN 2HRS AND CARRY OUT NECCESARY INTERVENTION. EVENING ASSESMENT COMPLETED. PT AAOX3, VSS, NO S/S OF R/T, ALTHOUGH CRACKLES/WHEEZES AUSCULTATED. PT RECIEVING RT TRHERAPY AT THIS TIME. PT DENIES ANY FURTHER NEEDS AT THIS TIME. WILL CPOC. CL WITHIN REACH. BED IN LOW, SR UP X2.
[2019-03-09 20:58] VITALS: BP 131/66
[2019-03-10 01:07] VITALS: BP 114/56
[2019-03-10 04:35] VITALS: BP 125/56
[2019-03-10 06:20] LABS: BASOPHILS 0.1 % (0-2); EOSINOPHILS 0.9 % (0-7); HEMOGLOBIN 8.3 g/dL (13.5-17.5); IMMATURE GRANULOCYTES 1.1 % (0-5); LYMPHOCYTES 10.1 % (15-50); MCH 31.3 pg (26.0-34.0); MCHC 31.9 g/dL (31.0-37.0); MCV 98.1 fL (80.0-100.0); MEAN PLATELET VOLUME 9.8 fL (7.4-10.4); NEUTROPHILS 82.8 % (40-80); PLATELET COUNT 322 10x3/uL (130-400); RBC 2.65 10x6/uL (4.20-6.10); RDW 17.1 % (11.5-14.5)
[2019-03-10 06:22] LABS: WBC 9.5 10x3/uL (4.8-10.8)
[2019-03-10 06:50] LABS: ANION GAP 15.3 mmol/L (8-16); CALCIUM 8.4 mg/dL (8.5-10.1); CARBON DIOXIDE 23.3 mmol/L (21.0-32.0); CREATININE - SERUM 3.3 mg/dL (0.6-1.3); PHOSPHOROUS 3.7 mg/dL (2.5-4.9); POTASSIUM - SERUM 3.6 mmol/L (3.5-5.1)
[2019-03-10 09:05] VITALS: BP 128/62
--- NOTE | 2019-03-10 12:36 | NUR ---
PATIENT REPORTS HAVING SEEN RED IN HIS STOOL. CALLING DR TO REPORT. STARTED COLLECTING 24 HOUR URINE.
[2019-03-10 16:00] VITALS: BP 121/62
[2019-03-10 16:21] LABS: APTT 32.5 SECONDS (22.8-39.4); INR 1.96 (0.85-1.17); PROTIME 21.7 SECONDS (11.6-15.0)
--- NOTE | 2019-03-10 17:59 | NUR ---
CLAUDY LAMB # [id number] , AND SRAVANTHI LAMB IS PATIENT BROTHER AND POA. THEY WANTED TO MAKE SURE THAT WE KNEW HIS PHONE NUMBER.
--- NOTE | 2019-03-10 19:10 | NUR ---
BEDSIDE REPORT RECEIVED FROM DAY SHIFT, PT CARE ASSUMED. WROTE NAME ON BOARD. PT SITTING UP IN CHAIR AT BEDSIDE, WATCHING TV, AAOX4. REQUESTING DIET JAYLA, PROVIDED. DENIES PAIN OR ANY OTHER NEEDS AT THIS TIME. BED IN LOWEST POSITION, SR X2, CALL LIGHT WITHIN REACH. WILL CONTINUE TO MONITOR.
[2019-03-10 20:00] VITALS: BP 121/64
[2019-03-11 00:05] VITALS: BP 113/60
[2019-03-11 04:36] VITALS: BP 118/51
[2019-03-11 06:08] LABS: BASOPHILS 0.1 % (0-2); EOSINOPHILS 0.6 % (0-7); HEMATOCRIT 24.9 % (42.0-54.0); HEMOGLOBIN 7.9 g/dL (13.5-17.5); IMMATURE GRANULOCYTES 1.2 % (0-5); LYMPHOCYTES 7.9 % (15-50); MCH 31.3 pg (26.0-34.0); MCHC 31.7 g/dL (31.0-37.0); MCV 98.8 fL (80.0-100.0); MEAN PLATELET VOLUME 9.9 fL (7.4-10.4); NEUTROPHILS 85.2 % (40-80); PLATELET COUNT 316 10x3/uL (130-400); RBC 2.52 10x6/uL (4.20-6.10); RDW 16.8 % (11.5-14.5)
[2019-03-11 06:13] LABS: WBC 12.1 10x3/uL (4.8-10.8)
[2019-03-11 06:46] LABS: ALBUMIN 1.9 g/dL (3.4-5.0); ANION GAP 16.2 mmol/L (8-16); BILIRUBIN - TOTAL 0.57 mg/dL (0.2-1.3); CALCIUM 8.1 mg/dL (8.5-10.1); CARBON DIOXIDE 21.8 mmol/L (21.0-32.0); CREATININE - SERUM 3.3 mg/dL (0.6-1.3); PHOSPHOROUS 3.2 mg/dL (2.5-4.9); PROTEIN - SERUM 5.2 g/dL (6.4-8.2)
[2019-03-11 07:37] VITALS: BP 110/41
[2019-03-11 11:28] VITALS: BP 104/47
--- NOTE | 2019-03-11 13:17 | NUR ---
I have reviewed this patient and I concur with the Shift Assessment completed by the Licensed Practical Nurse today this shift.
[2019-03-11 13:57] LABS: CREATININE - SERUM 3.3 mg/dL (0.6-1.3)
[2019-03-11 14:11] LABS: CREATININE - URINE 47.4 mg/dL (30-125); PROTEIN - URINE 24.9 mg/dL (0.0-11.9)
[2019-03-11 16:06] VITALS: BP 117/59
--- NOTE | 2019-03-11 18:31 | NUR ---
PT AWAKE AND ORIENTED HAS HAD NO COMPLAITNS OR CONCERNS, ALL QUESTIONS ANSWERED TO THE BEST OF MY ABIITY. REQUESTED TO WALK AROUND THE HALLS WHEN HE GETS BORED, PT AMBULATES BY SELF WELL. CL IN REACH, SRX2.
--- NOTE | 2019-03-11 20:00 | NUR ---
A/O WITH NO SIGNS OF ACUTE DISTRESS. IV TO THE LT FOREARM WITH NO REDNESS OR SWELLING. CLEAN DRESSING NOTED TO LT ARM. DENIES NO NEEDS AT THIS TIME. CONTINUE WITH PLAN OF CARE.
[2019-03-11 20:45] VITALS: BP 117/63
[2019-03-12] VITALS (7 sets, daily range): BP systolic 102–141; BP diastolic 54–71
[2019-03-12 06:53] LABS: BASOPHILS 0.2 % (0-2); EOSINOPHILS 1.3 % (0-7); HEMATOCRIT 27.3 % (42.0-54.0); HEMOGLOBIN 8.5 g/dL (13.5-17.5); IMMATURE GRANULOCYTES 1.5 % (0-5); LYMPHOCYTES 14.3 % (15-50); MCH 31.3 pg (26.0-34.0); MCHC 31.1 g/dL (31.0-37.0); MCV 100.4 fL (80.0-100.0); MEAN PLATELET VOLUME 9.7 fL (7.4-10.4); MONOCYTES 6.5 % (2-11); NEUTROPHILS 76.2 % (40-80); PLATELET COUNT 363 10x3/uL (130-400); RBC 2.72 10x6/uL (4.20-6.10); RDW 17.1 % (11.5-14.5)
[2019-03-12 07:58] LABS: ALBUMIN 2.3 g/dL (3.4-5.0)
[2019-03-12 08:12] LABS: CALCIUM 8.2 mg/dL (8.5-10.1)
[2019-03-12 08:26] LABS: BILIRUBIN - TOTAL 0.52 mg/dL (0.2-1.3); CARBON DIOXIDE 21.2 mmol/L (21.0-32.0); PROTEIN - SERUM 5.5 g/dL (6.4-8.2)
[2019-03-12 08:27] LABS: ANION GAP 18.3 mmol/L (8-16); POTASSIUM - SERUM 3.5 mmol/L (3.5-5.1)
--- NOTE | 2019-03-12 09:55 | NUR ---
PT AWAKE AND ORIENTED WHEN I ENTERED ROOM THIS MORNING. REFUSED PROCRIT, STATING HE DIDN'T WANT ANYTHING HE MAY HAVE TO ADMINISTER HIMSELF AT HOME. C/O DR. MADERA, STATING HE WANTS A NEW TODAY. NO OTHER COMPLAINTS OR CONCERNS, ALL QUESTIONS ANSWERED TO THE BEST OF MY ABILITY. CL IN REACH, SRX2.
--- NOTE | 2019-03-12 14:19 | NUR ---
I have reviewed this patient and I concur with the Shift Assessment completed by the Licensed Practical Nurse today this shift.
--- NOTE | 2019-03-12 15:09 | NUR ---
Nutrition Follow-up: Eating well. Diarrhea seems to have improved. Noted diet changed to diabetic 2/2 recovered function. Diet: Diabetic PO intake: 93% avg x 7 meals Wt: 179.4# (03/11); 180.4# (03/08) Labs noted: K+ 3.5, Glu 176, Ca 8.2, Alb 2.3, PO4 3.2 (03/11) Meds noted: Lasix, Nephrovite, Questran -Continue current diet as tolerated. -RD following.
--- NOTE | 2019-03-12 18:58 | NUR ---
PT REFUSES BLOOD SUGAR CHECKS WITH INSULIN, D/T HE WILL REFUSE ANY INSULIN TX REGARDLESS OF RESULT FROM FEAR OF BOTTOMING OUT.
--- NOTE | 2019-03-12 21:29 | NUR ---
PT REDTING IN BED AT THIS TIME ALERT AND ORIENTED X4. PT REFUSED FSBS. NOS S/S OF DISTRESS. VITALS STABLE. BED LOW CALL LIGHT WITHIN REACH. WILL CONTINUE TO MONITOR.
--- NOTE | 2019-03-13 01:21 | NUR ---
I have reviewed this patient and I concur with the Shift Assessment completed by the Licensed Practical Nurse today this shift.
[2019-03-13 04:09] VITALS: BP 118/58
--- NOTE | 2019-03-13 07:29 | NUR ---
RECIEVED REPORT FROM BRIDGE TEACHER. PATIENT IS RESTING IN BED AT THIS TIME. HE IS STILL ON ENTERIC PRECAUTIONS, HOWEVER HE HAS NOT HAD DIARREAH, AND DOES NOT HAVE BLOOD IN HIS STOOL. BRIDGE TEACHER REPORTS THAT HIS BLEEDING HAS NOT BEEN A CONCERN TODAY. WILL FOLLOW UP AND WATCH LABS. PATIENT DENIES ANY NEEDS AT THIS TIME.
[2019-03-13 08:51] VITALS: BP 110/69
[2019-03-13 11:01] LABS: BASOPHILS 0.2 % (0-2); EOSINOPHILS 0.6 % (0-7); HEMATOCRIT 25.3 % (42.0-54.0); HEMOGLOBIN 7.8 g/dL (13.5-17.5); IMMATURE GRANULOCYTES 1.2 % (0-5); LYMPHOCYTES 14.8 % (15-50); MCH 31.3 pg (26.0-34.0); MCHC 30.8 g/dL (31.0-37.0); MCV 101.6 fL (80.0-100.0); MEAN PLATELET VOLUME 9.5 fL (7.4-10.4); MONOCYTES 5.6 % (2-11); NEUTROPHILS 77.6 % (40-80); PLATELET COUNT 349 10x3/uL (130-400); RBC 2.49 10x6/uL (4.20-6.10); RDW 17.2 % (11.5-14.5); WBC 10.1 10x3/uL (4.8-10.8)
--- NOTE | 2019-03-13 11:14 | NUR ---
CALLED VASCULAR ACCESS NURSE TO ATTEMPT TO START HIS IV. IV IN LEFT FOREARM REMOVED WITH CATHETER INTACT. IT HAD DISLODGED.
[2019-03-13 11:16] LABS: ALBUMIN 2.1 g/dL (3.4-5.0); ANION GAP 15.9 mmol/L (8-16); BILIRUBIN - TOTAL 0.49 mg/dL (0.2-1.3); CALCIUM 8.2 mg/dL (8.5-10.1); CARBON DIOXIDE 21.7 mmol/L (21.0-32.0); CREATININE - SERUM 2.7 mg/dL (0.6-1.3); PHOSPHOROUS 3.1 mg/dL (2.5-4.9); POTASSIUM - SERUM 3.6 mmol/L (3.5-5.1); PROTEIN - SERUM 5.6 g/dL (6.4-8.2)
--- NOTE | 2019-03-13 11:45 | NUR ---
IV REMOVED FORM LEFT FOREARM CATH INTACT. VASCULAR ACCESS NURSE FOUND A VEIN WITH THE VEIN FINDER AND GOT A 20 G IN THE LEFT FOREARM.
[2019-03-13 12:34] VITALS: BP 97/58
[2019-03-13] MEDS ORDERED: XARELTO15 MG PO (13:21)
[2019-03-13] MEDS ORDERED: FLORAJEN3 CAPS460 MG PO (13:22)
[2019-03-13] MEDS ORDERED: NEPHRO-VITE RX1 TAB PO (13:22)
[2019-03-13] MEDS ORDERED: BETAPACE 80 MG80 MG PO (13:23)
[2019-03-13] MEDS ORDERED: NIFEREX-150 CAP1 CA3 PO (13:23)
[2019-03-13] MEDS ORDERED: NICODERM C1 PATCH .3 TRANSDERM (13:24)
[2019-03-13] MEDS ORDERED: FLAGYL500 MG PO (13:24)
[2019-03-13] MEDS ORDERED: Vancomycin HCl PO (13:24)
[2019-03-13] MEDS ORDERED: VANCOMYCIN250 MG/51 PO (13:28)
[2019-03-13] MEDS ORDERED: GLUCOTROL ER2.5 MG PO (13:39)
[2019-03-13] MEDS ORDERED: LASIX40 MG PO (14:38)
--- NOTE | 2019-03-13 14:40 | NUR ---
PER PATIENT REQUEST ALL MEDS ARE SENT TO [facility]. LAZARO FROM [facility] CALLED THEM AND HAD THEM TRANSFERRED.
--- NOTE | 2019-03-13 16:31 | NUR ---
REDRESSED HEMESPLIT AND REMOVED IV FROM LEFT AC, CATHETER INTACT. DISCHARGE TEACHING COMPLETE AND PAPERS SIGNED. ALL PATIENT BELONGINGS HAVE GONE HOME WITH THE PATIENT . HE WENT DOWNSTAIRS BY WHEELCHAIR. HE WENT HOME WITH FAMILY.
--- NOTE | 2019-03-13 17:29 | MORECARE ---
CASE MANAGEMENT DISCHARGE SUMMARY PATIENT: LETICIA LAMB UNIT: [id number] ADM DATE: 03/08/19 AGE: 68 : 52 SEX: M ROOM/BED: D.7800 AUTHOR: ALEJANDRO SANCHEZ PHYSICIAN: REFERRING PHYSICIAN: ANGEL MADERA MD DATE OF SERVICE: 03/13/19 Discharge Plan Patient Name: LETICIA LAMB Facility: [facility]:[place] : 1950 Planned Disposition: Home Anticipated Discharge Date: 03/13/19 Discharge Date: 03/13/2019 Expected LOS: 5 Initial Reviewer: [email or web address] Initial Review Date: 03/13/2019 Generated: 03/13/19 6:28 pm Comments DCP- Discharge Planning Updated by [email or web address]: Michael Isaacs on 03/13/19 4:[address] Patient Name: LETICIA LAMB Admission Status: ER Accout number: [id number] Admission Date: 03-08-2019 : 1950 Admission Diagnosis: Attending: ANGEL MADERA Current LOS: 5 Anticipated DC Date: 03-13-2019 Planned Disposition: Home Primary Insurance: [employer] CHOICE PPO MCR ADVANT Discharge Planning Comments: CM MET WITH PT IN ROOM TO DISCUSS DISCHARGE PLANNING AND NEEDS. PT REPORTS LIVING AT HOME INDEPENDENTLY [facility]. PT HAS WALKER WITH NO MEDICAL EQUIPMENT PROVIDER PREFERNECE AND NO OUTSIDE SERVICES ASSISTING IN THE HOME. CM DISCUSSED AVAILABILITY OF HOME HEALTH, REHAB SERVICES AND MEDICAL EQUIPMENT. PT DENIES DISCHARGE NEEDS, REPORTS HIS FRIEND WILL PICK HIM UP FOR DISCHARGE HOME. IMPORTANT MESSAGE FROM MEDICARE PROVIDED AND EXPLAINED. GAUGE MACHINE OPERATOR NURSE NOTIFIED. Cloth Printing Inspector: Michael Isaacs DCPIA - Discharge Planning Initial Assessment Updated by [email or web address]: Michael Isaacs on 03/13/19 5:24 pm * Is the patient Alert and Oriented? Yes * How many steps to enter\exit or inside your home? * PCP DR. BAUER * Pharmacy [facility] * Preadmission Environment Home Alone * ADLs Independent * Equipment Walker * Other Equipment NO MEDICAL EQUIPMENT PROVIDER PREFERENCE * List name and contact numbers for known caregivers / representatives who currently or will assist patient after discharge: BROTHER PRYOR, * Verbal permission to speak to the caregivers and representatives has been obtained from the patient. N/A * Community resources currently utilized None * Please name any agencies selected above. REPORTS WAS DIALYSIS PATIENT AT [facility], [facility], 0615; BUT NOT LONGER NEEDS IT * Additional services required to return to the preadmission environment? No * Can the patient safely return to the preadmission environment? Yes * Has this patient been hospitalized within the prior 30 days at any hospital? No Coverage Notice Reviewer: [id number] Hortencia Isaacs Notice Issued Date-Time: 03/13/2019 9:25 Notice Type: IM Discharge Notice Notice Delivered To: Patient Relationship to Patient: Gate Clerk Name: Delivery Method: HAND - Hand Delivered Beverly Days: Prior Verbal Notification: Recipient Understood Notice: Yes Recipient Signature: Yes Med Rec Note Co-signed by Attending: Coverage Notice Comment: Patient Name: LETICIA LAMB Page [id number] at 1729 All edits/amendments must be made on the electronic document DICTATION DATE: 03/13/191727 GOLF COURSE ASSISTANT: BOB 03/13/191727 RPT#: [id number] DC DATE:03/13/19 STATUS: DIS IN [facility] [address] [place] [address] END OF REPORT
== END 2019-03-13 16:35 | disposition home or self-care (01) | DRG 637 ==
LOC: D.ER 00:44 → D.M2 01:54 → D.SDCHOLD 13:37 → D.M2 03-13 16:35
PROVIDERS: Family Medicine; Internal Medicine Nephrology; ADMIT Internal Medicine Nephrology; ATTEND Internal Medicine Nephrology
PROC: 5A1D70Z Performance of Urinary Filtration, Intermittent, Less than 6 Hours Per Day (ICD-10-PCS; principal; 2019-03-08)
DX: E11.649 Type 2 diabetes mellitus with hypoglycemia without coma (principal); I50.23 Acute on chronic systolic (congestive) heart failure; A04.72 Enterocolitis due to Clostridium difficile, not specified as recurrent; I13.2 Hypertensive heart and chronic kidney disease with heart failure and with stage 5 chronic kidney disease, or end stage renal disease; D68.9 Coagulation defect, unspecified; F17.213 Nicotine dependence, cigarettes, with withdrawal; E11.22 Type 2 diabetes mellitus with diabetic chronic kidney disease; N18.6 End stage renal disease; Z99.2 Dependence on renal dialysis; D50.9 Iron deficiency anemia, unspecified; G89.29 Other chronic pain; D63.1 Anemia in chronic kidney disease; Z91.14 Patient's other noncompliance with medication regimen; E78.5 Hyperlipidemia, unspecified; I25.10 Atherosclerotic heart disease of native coronary artery without angina pectoris; J43.9 Emphysema, unspecified; M54.9 Dorsalgia, unspecified